=== PATIENT | male | born 1955 | race Caucasian/White ===

== ENCOUNTER → 2017-09-03 14:40 | Outpatient (CLI) | payer MEDICARE, SELFPAY | PROVIDERS: Visit Provider Emergency Medicine | DX: Z79.899 Other long term (current) drug therapy (principal) ==

== ENCOUNTER → 2017-12-02 10:56 | Outpatient (REF) | payer MEDICARE, SELFPAY ==
[2017-12-02 14:06] LABS: Amphetamine/Metha Screen,Urine Negative ng/mL (<1000); Barbiturates Screen,Urine Negative ng/mL (<200); Benzodiazepines Screen,Urine Negative ng/mL (200); Cannabinoid Screen,Urine Negative ng/mL (<50); Cocaine Screen,Urine Negative ng/g (<300); Methadone Screen,Urine Negative ng/mL (<300); Opiate Screen,Urine Negative ng/mL (<300); Phencyclidine Screen,Urine Negative ng/mL (<25)
[2017-12-02 15:33] LABS: Basophils # 0.1 K/mm3 (0-0.2); Basophils % 0.8 % (0.1-2.0); Eosinophils # 0.3 K/mm3 (0.0-0.4); Eosinophils % 2.7 % (0.1-12.0); Hematocrit 49.9 % (42.0-52.0); Hemoglobin 15.2 g/dL (14.1-18.0); Lymphocytes # 4.1 K/mm3 (0.7-4.5); Lymphocytes % 36.4 K/mm3 (10-50); Mean Corpuscular HGB Conc 30.5 g/dL (31.8-35.4); Mean Corpuscular Hemoglobin 28.8 pg (27.0-31.2); Mean Corpuscular Volume 94.6 fl (80-94); Mean Platelet Volume 7.5 fl (7.4-10.4); Monocytes # 0.6 K/mm3 (0.1-1.0); Monocytes % 5.5 % (1.7-9.3); Neutrophils # 6.2 K/mm3 (1.8-7.8); Neutrophils % 54.6 % (37.0-80.0); Platelet Count 344 K/mm3 (142-424); Red Blood Count 5.27 M/mm3 (4.60-6.20); Red Cell Distribution Width 13.5 % (11.5-17.5); White Blood Count 11.3 K/mm3 (4.8-10.8)
[2017-12-02 16:16] LABS: Alanine Aminotransferase 18 U/L (12-78); Albumin Level 3.5 gm/dL (3.4-5.0); Albumin/Globulin Ratio 0.9 (1.1-1.8); Alkaline Phosphatase 116 U/L (46-116); Anion Gap 11.9 mEq/L (5-15); Aspartate Amino Transferase 10 U/L (15-37); Bilirubin,Total 0.2 mg/dL (0.2-1.0); Blood Urea Nitrogen 13 mg/dL (7-18); Calcium 9.3 mg/dL (8.5-10.1); Carbon Dioxide 30 mmol/L (21.0-32.0); Chloride 104 mmol/L (98-107); Chol/HDL Ratio 4.5 (1-3.5); Cholesterol 177 mg/dL (140-200); Creatinine,Serum 0.79 mg/dL (0.70-1.30); Estimated Glomerular Filt Rate 100 ml/min (>60); GFR (African American) 121 ML/MIN (>60); Globulin 3.8 gm/dl (1.3-3.2); Glucose 234 mg/dL (74-106); HDL Cholesterol 39 mg/dL (27-67); LDL Cholesterol 99 mg/dL (0-130); Potassium 4.9 mmoL/L (3.5-5.1); Sodium 141 mmol/L (136-145); T4 (Thyroxine) 7.7 ug/dl (4.7-13.3); Thyroid Stimulating Hormone 3.52 uIU/ml (0.358-3.740); Total Protein,Serum 7.3 gm/dL (6.4-8.2); Triglycerides 196 mg/dL (30-200); VLDL Cholesterol 39 mg/dL (0-40)
[2017-12-02 17:43] LABS: Hemoglobin A1C 7.1 % (0.0-7.0)
[2017-12-04 11:16] LABS: Vitamin D 25 Hydroxy 11.6 ng/mL (30.0-100.0)
[2017-12-04 11:17] LABS: Microalbumin, Urine 14.6 ug/mL (Not Estab.)
== END ==
LOC: LAB 10:56
PROVIDERS: Visit Provider Emergency Medicine
DX: Z79.899 Other long term (current) drug therapy (principal); E11.9 Type 2 diabetes mellitus without complications
CPT/HCPCS: 80053; 80061; 80305; 82043; 82652; 83036; 84436; 84443; 85025

== ENCOUNTER → 2018-03-18 14:45 | Outpatient (REF) | payer MEDICARE, SELFPAY ==
[2018-03-18 17:30] LABS: Basophils # 0.1 K/mm3 (0-0.2); Basophils % 0.8 % (0.1-2.0); Eosinophils # 0.2 K/mm3 (0.0-0.4); Eosinophils % 1.6 % (0.1-12.0); Hematocrit 48.1 % (42.0-52.0); Hemoglobin 15.1 g/dL (14.1-18.0); Lymphocytes # 2.9 K/mm3 (0.7-4.5); Lymphocytes % 27.7 K/mm3 (10-50); Mean Corpuscular HGB Conc 31.5 g/dL (31.8-35.4); Mean Corpuscular Hemoglobin 29.9 pg (27.0-31.2); Mean Corpuscular Volume 95.2 fl (80-94); Mean Platelet Volume 8.2 fl (7.4-10.4); Monocytes # 0.7 K/mm3 (0.1-1.0); Monocytes % 6.5 % (1.7-9.3); Neutrophils # 6.6 K/mm3 (1.8-7.8); Neutrophils % 63.4 % (37.0-80.0); Platelet Count 273 K/mm3 (142-424); Red Blood Count 5.06 M/mm3 (4.60-6.20); Red Cell Distribution Width 13.7 % (11.5-17.5); White Blood Count 10.4 K/mm3 (4.8-10.8)
[2018-03-18 17:47] LABS: Alanine Aminotransferase 21 U/L (12-78); Albumin Level 3.3 gm/dL (3.4-5.0); Albumin/Globulin Ratio 0.9 (1.1-1.8); Alkaline Phosphatase 134 U/L (46-116); Anion Gap 13.8 mEq/L (5-15); Aspartate Amino Transferase 13 U/L (15-37); Bilirubin,Total 0.4 mg/dL (0.2-1.0); Blood Urea Nitrogen 10 mg/dL (7-18); Calcium 9.1 mg/dL (8.5-10.1); Carbon Dioxide 28 mmol/L (21.0-32.0); Chloride 104 mmol/L (98-107); Chol/HDL Ratio 3.9 (1-3.5); Cholesterol 147 mg/dL (140-200); Creatinine,Serum 0.79 mg/dL (0.70-1.30); Estimated Glomerular Filt Rate 100 ml/min (>60); Free T4 (Free Thyroxine) 1.06 ng/dl (0.76-1.46); GFR (African American) 121 ML/MIN (>60); Globulin 3.7 gm/dl (1.3-3.2); Glucose 269 mg/dL (74-106); HDL Cholesterol 38 mg/dL (27-67); LDL Cholesterol 72 mg/dL (0-130); Potassium 4.8 mmoL/L (3.5-5.1); Sodium 141 mmol/L (136-145); Thyroid Stimulating Hormone 2.13 uIU/ml (0.358-3.740); Triglycerides 184 mg/dL (30-200); VLDL Cholesterol 37 mg/dL (0-40)
[2018-03-18 18:25] LABS: Hemoglobin A1C 10.3 % (0.0-7.0)
[2018-03-20 10:24] LABS: Creatinine, Urine 101.5 mg/dL (Not Estab.); Microalbumin, Urine 53.1 ug/mL (Not Estab.)
== END ==
LOC: LAB 14:45
PROVIDERS: Visit Provider Emergency Medicine
DX: E10.9 Type 1 diabetes mellitus without complications (principal)
CPT/HCPCS: 80053; 80061; 82043; 82570; 83036; 84439; 84443; 85025

== ENCOUNTER → 2018-03-31 08:43 | Outpatient (CLI) | payer MEDICARE, SELFPAY | PROVIDERS: PCP Emergency Medicine; Visit Provider Emergency Medicine | DX: E10.9 Type 1 diabetes mellitus without complications (principal); Z71.3 Dietary counseling and surveillance | CPT/HCPCS: 97802 ==

== ENCOUNTER → 2019-05-19 16:24 | Outpatient (CLI) | payer MEDICARE, SELFPAY ==
[2019-05-19 16:47] LABS: Basophils # 0.1 K/mm3 (0-0.2); Basophils % 0.6 % (0.1-2.0); Eosinophils # 0.5 K/mm3 (0.0-0.4); Eosinophils % 3.8 % (0.1-12.0); Hematocrit 46.7 % (42.0-52.0); Hemoglobin 14.6 g/dL (14.1-18.0); Lymphocytes # 3.3 K/mm3 (0.7-4.5); Lymphocytes % 26.5 % (10-50); Mean Corpuscular HGB Conc 31.2 g/dL (31.8-35.4); Mean Corpuscular Hemoglobin 29.8 pg (27.0-31.2); Mean Corpuscular Volume 95.5 fl (80-94); Mean Platelet Volume 8.5 fl (7.4-10.4); Monocytes # 0.7 K/mm3 (0.1-1.0); Monocytes % 5.9 % (1.7-9.3); Neutrophils # 7.8 K/mm3 (1.8-7.8); Neutrophils % 63.2 % (37.0-80.0); Platelet Count 339 K/mm3 (142-424); Red Blood Count 4.89 M/mm3 (4.60-6.20); Red Cell Distribution Width 13.9 % (11.5-17.5); White Blood Count 12.3 K/mm3 (4.8-10.8)
[2019-05-19 17:07] LABS: Alanine Aminotransferase 15 U/L (12-78); Albumin Level 3.4 gm/dL (3.4-5.0); Albumin/Globulin Ratio 0.9 (1.1-1.8); Alkaline Phosphatase 111 U/L (46-116); Anion Gap 13.9 mEq/L (5-15); Aspartate Amino Transferase 12 U/L (15-37); Bilirubin,Total 0.2 mg/dL (0.2-1.0); Blood Urea Nitrogen 16 mg/dL (7-18); Calcium 9.3 mg/dL (8.5-10.1); Carbon Dioxide 27 mmol/L (21.0-32.0); Chloride 102 mmol/L (98-107); Chol/HDL Ratio 4.4 (1-3.5); Cholesterol 167 mg/dL (140-200); Creatinine,Serum 0.88 mg/dL (0.70-1.30); Estimated Glomerular Filt Rate 88 ml/min (>60); Free T4 (Free Thyroxine) 0.95 ng/dl (0.76-1.46); GFR (African American) 106 ML/MIN (>60); Globulin 3.8 gm/dl (1.3-3.2); Glucose 171 mg/dL (74-106); HDL Cholesterol 38 mg/dL (27-67); LDL Cholesterol 76 mg/dL (0-130); Potassium 4.9 mmoL/L (3.5-5.1); Sodium 138 mmol/L (136-145); Thyroid Stimulating Hormone 2.14 uIU/ml (0.358-3.740); Total Protein,Serum 7.2 gm/dL (6.4-8.2); Triglycerides 267 mg/dL (30-200); VLDL Cholesterol 53 mg/dL (0-40)
[2019-05-21 09:17] LABS: PSA, Free 0.24 ng/mL; Vitamin D 25 Hydroxy 8.4 ng/mL (30.0-100.0)
[2019-05-21 17:20] LABS: Microalbumin, Urine 17.6 ug/mL (Not Estab.)
== END ==
PROVIDERS: Visit Provider Nurse Practitioner Family
DX: E11.69 Type 2 diabetes mellitus with other specified complication; E78.5 Hyperlipidemia, unspecified; K59.00 Constipation, unspecified; Z72.0 Tobacco use; E03.9 Hypothyroidism, unspecified; E55.9 Vitamin D deficiency, unspecified; Z79.84 Long term (current) use of oral hypoglycemic drugs
CPT/HCPCS: 80053; 80061; 82043; 82652; 84153; 84154; 84439; 84443; 85025

== ENCOUNTER → 2019-08-18 13:47 | Outpatient (CLI) | payer MEDICARE, SELFPAY ==
[2019-08-18 14:49] LABS: Chloride 99 mmol/L (98-107); Potassium 4.9 mmoL/L (3.5-5.1); Sodium 135 mmol/L (136-145)
[2019-08-18 14:52] LABS: Alanine Aminotransferase 18 U/L (12-78); Albumin Level 3.7 g/dl (3.5-5.0); Albumin/Globulin Ratio 1.4 (1.1-1.8); Alkaline Phosphatase 108 U/L (38-126); Anion Gap 12.9 mEq/L (5-15); Aspartate Amino Transferase 23 U/L (17-59); Bilirubin,Total 0.3 mg/dl (0.2-1.3); Blood Urea Nitrogen 17 mg/dl (9-20); Calcium 9.6 mg/dl (8.4-10.2); Carbon Dioxide 28 mmol/L (22.0-30.0); Chol/HDL Ratio 4.3 (1-3.5); Cholesterol 134 mg/dl (140-200); Estimated Glomerular Filt Rate 136 ml/min (>60); GFR (African American) 165 ML/MIN (>60); Globulin 2.7 g/dL (1.3-3.2); Glucose 252 mg/dl (74-100); HDL Cholesterol 31 mg/dl (40-60); Total Protein,Serum 6.4 g/dl (6.3-8.2); Triglycerides 277 mg/dl (30-150); VLDL Cholesterol 55 mg/dL (0-40)
[2019-08-18 15:03] LABS: Direct LDL Cholesterol 83.25 mg/dL (100-129)
[2019-08-18 15:20] LABS: Free T4 (Free Thyroxine) 1.25 ng/dl (0.78-2.19)
[2019-08-18 19:46] LABS: Hemoglobin A1C 8.2 % (4.0-6.0)
[2019-08-18 21:09] LABS: Basophils # 0.1 K/mm3 (0-0.2); Basophils % 0.7 % (0.1-2.0); Eosinophils # 0.2 K/mm3 (0.0-0.4); Hematocrit 44.7 % (42.0-52.0); Lymphocytes # 3.3 K/mm3 (0.7-4.5); Lymphocytes % 30.9 % (10-50); Mean Corpuscular HGB Conc 31.3 g/dL (31.8-35.4); Mean Corpuscular Hemoglobin 29.7 pg (27.0-31.2); Mean Corpuscular Volume 94.8 fl (80-94); Mean Platelet Volume 8.8 fl (7.4-10.4); Monocytes # 0.6 K/mm3 (0.1-1.0); Monocytes % 5.8 % (1.7-9.3); Neutrophils # 6.5 K/mm3 (1.8-7.8); Neutrophils % 60.6 % (37.0-80.0); Platelet Count 319 K/mm3 (142-424); Red Blood Count 4.72 M/mm3 (4.60-6.20); Red Cell Distribution Width 13.6 % (11.5-17.5); White Blood Count 10.7 K/mm3 (4.8-10.8)
[2019-08-20 10:34] LABS: Vitamin D 25 Hydroxy 31.3 ng/mL (30.0-100.0)
[2019-08-20 11:09] LABS: Creatinine, Urine 127.8 mg/dL (Not Estab.); Microalbumin, Urine 15.4 ug/mL (Not Estab.)
== END ==
PROVIDERS: Visit Provider Emergency Medicine
DX: E11.8 Type 2 diabetes mellitus with unspecified complications; E78.5 Hyperlipidemia, unspecified; Z79.84 Long term (current) use of oral hypoglycemic drugs; Z79.899 Other long term (current) drug therapy
CPT/HCPCS: 80053; 80061; 82043; 82570; 82652; 83036; 84439; 84443; 85025

== ENCOUNTER → 2019-09-10 12:50 | Outpatient (CLI) | payer MEDICARE, SELFPAY ==
--- NOTE | 2019-09-10 12:51 | US_ITS ---
APPROVED REPORT Exam Type: Lower Extremity Segmental Pressures Telephone Order Clerk: Jena Srivastava RVT Indications Current Smoker Skin color changes Pressures/Indices Right Indices Left Indices Brachial 168.00 mmHg Brachial 168.00 mmHg Low Thigh 138.00 mmHg 0.82 Low Thigh 108.00 mmHg 0.64 Calf 184.00 mmHg 1.10 Calf 125.00 mmHg 0.74 Ankle(PT) 196.00 mmHg 1.17 Ankle(PT) 122.00 mmHg 0.73 Ankle(DP) 170.00 mmHg 1.01 Ankle(DP) 113.00 mmHg 0.67 Digit 142.00 mmHg 0.85 Digit 109.00 mmHg 0.65 Findings RT MALOU:1.17 LT MALOU:0.73 RT TBI:0.85 LT TBI:0.65 DECREASED WAVEFORMS ON THE LEFT AT ALL LEVELS, RIGHT IS NORMAL. PULSES NORMAL BILATERALLY. Conclusion Moderate aterial disease on the left Electronically signed by : Kevon Espinoza MD 09/10/2019 16:04:33
== END ==
PROVIDERS: PCP Emergency Medicine; Visit Provider Podiatrist
DX: R09.89 Other specified symptoms and signs involving the circulatory and respiratory systems (principal)
CPT/HCPCS: 93923

== ENCOUNTER → 2019-11-10 15:00 | Outpatient (CLI) | payer MEDICARE, SELFPAY ==
[2019-11-10 15:44] LABS: Basophils # 0.2 K/mm3 (0-0.2); Basophils % 1.3 % (0.1-2.0); Eosinophils # 0.3 K/mm3 (0.0-0.4); Eosinophils % 2.3 % (0.1-12.0); Hematocrit 46.6 % (42.0-52.0); Hemoglobin 14.7 g/dL (14.1-18.0); Lymphocytes # 3.9 K/mm3 (0.7-4.5); Lymphocytes % 29.3 % (10-50); Mean Corpuscular HGB Conc 31.5 g/dL (31.8-35.4); Mean Corpuscular Hemoglobin 29.6 pg (27.0-31.2); Mean Corpuscular Volume 93.9 fl (80-94); Mean Platelet Volume 8.3 fl (7.4-10.4); Monocytes # 0.8 K/mm3 (0.1-1.0); Monocytes % 5.8 % (1.7-9.3); Neutrophils # 8.1 K/mm3 (1.8-7.8); Neutrophils % 61.3 % (37.0-80.0); Platelet Count 348 K/mm3 (142-424); Red Blood Count 4.97 M/mm3 (4.60-6.20); Red Cell Distribution Width 14.2 % (11.5-17.5); White Blood Count 13.1 K/mm3 (4.8-10.8)
[2019-11-10 15:57] LABS: Alanine Aminotransferase 20 U/L (12-78); Albumin Level 4.2 g/dl (3.5-5.0); Albumin/Globulin Ratio 1.4 (1.1-1.8); Alkaline Phosphatase 118 U/L (38-126); Anion Gap 12.7 mEq/L (5-15); Aspartate Amino Transferase 23 U/L (17-59); Bilirubin,Total 0.3 mg/dl (0.2-1.3); Blood Urea Nitrogen 21 mg/dl (9-20); Calcium 9.8 mg/dl (8.4-10.2); Carbon Dioxide 25 mmol/L (22.0-30.0); Chloride 101 mmol/L (98-107); Chol/HDL Ratio 3.4 (1-3.5); Cholesterol 147 mg/dl (140-200); Estimated Glomerular Filt Rate 136 ml/min (>60); GFR (African American) 165 ML/MIN (>60); Globulin 3.1 g/dL (1.3-3.2); Glucose 160 mg/dl (74-100); HDL Cholesterol 43 mg/dl (40-60); Potassium 4.7 mmoL/L (3.5-5.1); Sodium 134 mmol/L (136-145); Total Protein,Serum 7.3 g/dl (6.3-8.2)
[2019-11-10 16:00] LABS: Triglycerides 497 mg/dl (30-150)
[2019-11-10 16:08] LABS: Direct LDL Cholesterol 70.22 mg/dL (100-129)
[2019-11-10 16:28] LABS: Thyroid Stimulating Hormone 3.84 uIU/mL (0.465-4.68)
[2019-11-10 16:29] LABS: Hemoglobin A1C 7.5 % (4.0-6.0)
[2019-11-12 07:37] LABS: Vitamin D 25 Hydroxy 19.8 ng/mL (30.0-100.0)
== END ==
PROVIDERS: Visit Provider Emergency Medicine
DX: E11.8 Type 2 diabetes mellitus with unspecified complications (principal); R68.89 Other general symptoms and signs; R09.89 Other specified symptoms and signs involving the circulatory and respiratory systems; E55.9 Vitamin D deficiency, unspecified; Z79.84 Long term (current) use of oral hypoglycemic drugs
CPT/HCPCS: 80053; 80061; 82652; 83036; 84436; 84443; 85025

== ENCOUNTER 2020-06-28 17:37 | Emergency (ER) | payer MEDICARE, SELFPAY ==
[2020-06-28 17:50] VITALS: BP 145/91; PULSE 98; RESP 20; TEMP 37.3; O2SAT 98; BMI 35.2
[2020-06-28 18:09] LABS: UTC Influenza A Antigen Negative (Negative)
--- NOTE | 2020-06-28 18:09 | HMH.EDUTC ---
[facility] [place] Disposition Clinical Impression: Viral syndrome Disposition: Home, Self-Care Condition on Discharge: Good Instructions: DI for Fever (Symptom) -- Adult, DI for COVID-19 (Suspected or Confirmed ), Coronavirus Disease 2019, Preventing the Spread of Coronavirus Discharge Instructions Additional Instructions: *Monitor Temp, Over the counter Motrin or Tylenol as directed/as needed Tylenol every 4 hours and Motrin every 6 hours (as long as your family doctor has told you that you can take it) for fever or pain. and straight to ER if unable to lower temp less than 101.0 after medication given *Warm salt water gargles may help to soothe the throat *Throat Lozenges *Warm fluids like tea with honey may help to soothe the throat *Sleep elevated *Humidifier/Vaporizer Follow up IMMEDIATELY for new or worsening symptoms or no Noticeable improvement over the next 48-72 hours. 911 for difficulty breathing or swallowing You were tested for today for COVID19 your test result should be back in the next 24-48 hours, you may call to the [facility] to see if your test results are back in the next 48 hours [phone] [facility] hours are 9am-9pm You was given a handout with instructions for Self Quarantine and Self isolation for while you wait on test results and what to do if they are positive If you are positive the Health Dept will be contacting you also Referrals: Sanchez Osborne MD [Primary Care Provider] - As needed Forms: Work/School Release Time of Disposition: 18:09 Medical Decision Making - Paresh Inquiry Pt receiving controlled substance: No Paresh was queried for this patient: No Vital Signs: 06/28/20 17:50 Temperature 99.1 F Temperature Source Oral Pulse Rate [Right Brachial] 98 H Respiratory Rate 20 Blood Pressure [Right Arm] 145/91 H Blood Pressure Mean [Right Arm] 109 Blood Pressure Source [Right Arm] Automatic Cuff Blood Pressure Position [Right Arm] Sitting 02 Sat by Pulse Oximetry 98 Oxygen Delivery Method Room Air Orders (Tests/Meds): ORDERS Category Date Time Status Covid-19 Nasal PCR Sendout P&C Stat Lab 06/28/20 17:55 Ordered [facility] [place] HPI - General Stated complaint: Covid test Time Seen by Provider: 06/28/20 18:09 Mode of Arrival: Ambulatory Source of Information: Patient Limitations: No Limitations Description of Symptoms (Recalled from Triage Doc. by RN): PATIENT C/O FEVER AND BODY ACHES X 2 DAYS HEENT Symptoms (Recalled from RN notes): No Resp Symptoms (Recalled from RN notes): No Skin Symptoms (Recalled from RN notes): No MS Symptoms (Recalled from RN notes): No Functional Status (Recalled from RN notes): WNL - History of Present Illness Provider Complaint: Patient states that a couple of days ago he had some nasal congestion then that went away and now he is having body aches, chills and fever on and off States that he was worried that he may have flu or COVID and wanted to get tested - Related Data Home Medications Medication Instructions Recorded Confirmed hydrocodone 7.5 mg-acetaminophen 1 tab PO Q6H 07/02/17 05/09/20 325 mg tablet Previous Rx's Medication Instructions Recorded blood sugar diagnostic See Dose Instructions .ROUTE 05/29/18 .MEDSUPPLY #100 each fluticasone furoate 100 1 inh INHALATION DAILY #28 each 09/09/18 mcg-vilanterol 25 mcg/dose inhalation powder ergocalciferol (vitamin D2) 1,250 50,000 unit PO QWEEK #10 cap 05/22/19 mcg (50,000 unit) capsule blood-glucose meter See Rx Instructions .ROUTE 08/20/19 .MEDSUPPLY #1 each blood-glucose meter See Rx Instructions .ROUTE 08/23/19 .MEDSUPPLY #1 each aspirin 81 mg tablet,delayed 81 mg PO DAILY #90 tab 11/10/19 release blood sugar diagnostic See Rx Instructions .ROUTE 11/10/19 .MEDSUPPLY #100 each glipizide 10 mg tablet, extended 10 mg PO BID #60 tab 11/10/19 release 24 hr lancets See Rx Instructions .ROUTE 11/10/19 .MEDSUPPLY #102 each cholecalciferol (vitamin D3) 25 25 mcg PO DAILY #9
[2020-06-28 18:10] LABS: UTC Influenza B Antigen Negative (Negative)
[2020-06-28 18:15] VITALS: BP 145/91; PULSE 98; RESP 20; TEMP 37.3; O2SAT 98
[2020-06-30 11:29] LABS: Covid-19 Nasal PCR Sendout P&C NEGATIVE
== END 2020-06-28 18:16 | disposition home or self-care (01) ==
PROVIDERS: Emergency Provider Nurse Practitioner; PCP Emergency Medicine
DX: Z20.828 Contact with and (suspected) exposure to other viral communicable diseases (principal); B34.9 Viral infection, unspecified; I10 Essential (primary) hypertension; I25.10 Atherosclerotic heart disease of native coronary artery without angina pectoris; E78.5 Hyperlipidemia, unspecified; E11.9 Type 2 diabetes mellitus without complications; F17.210 Nicotine dependence, cigarettes, uncomplicated; Z79.899 Other long term (current) drug therapy
CPT/HCPCS: G0463; 87804; 99201; U0004

== ENCOUNTER → 2020-08-08 13:38 | Outpatient (CLI) | payer MEDICARE, SELFPAY ==
[2020-08-08 14:20] LABS: Alanine Aminotransferase 18 U/L (12-78); Albumin/Globulin Ratio 1.3 (1.1-1.8); Alkaline Phosphatase 113 U/L (38-126); Anion Gap 9.6 mEq/L (5-15); Aspartate Amino Transferase 20 U/L (17-59); Bilirubin,Total 0.4 mg/dl (0.2-1.3); Blood Urea Nitrogen 10 mg/dl (9-20); Calcium 9.9 mg/dl (8.4-10.2); Carbon Dioxide 30 mmol/L (22.0-30.0); Chloride 103 mmol/L (98-107); Chol/HDL Ratio 3.5 (1-3.5); Cholesterol 149 mg/dl (140-200); Estimated Glomerular Filt Rate 167 ml/min (>60); GFR (African American) 203 ML/MIN (>60); Globulin 3.1 g/dL (1.3-3.2); Glucose 195 mg/dl (74-100); HDL Cholesterol 43 mg/dl (40-60); Potassium 4.6 mmoL/L (3.5-5.1); Sodium 138 mmol/L (136-145); Total Protein,Serum 7.1 g/dl (6.3-8.2); Triglycerides 213 mg/dl (30-150); VLDL Cholesterol 43 mg/dL (0-40)
[2020-08-08 14:29] LABS: Basophils # 0.1 K/mm3 (0-0.2); Basophils % 0.7 % (0.1-2.0); Eosinophils # 0.3 K/mm3 (0.0-0.4); Eosinophils % 2.2 % (0.1-12.0); Hematocrit 44.9 % (42.0-52.0); Hemoglobin 14.2 g/dL (14.1-18.0); Lymphocytes # 3.5 K/mm3 (0.7-4.5); Lymphocytes % 31.6 % (10-50); Mean Corpuscular HGB Conc 31.6 g/dL (31.8-35.4); Mean Corpuscular Hemoglobin 29.7 pg (27.0-31.2); Mean Platelet Volume 8.1 fl (7.4-10.4); Monocytes # 0.6 K/mm3 (0.1-1.0); Monocytes % 5.8 % (1.7-9.3); Neutrophils # 6.6 K/mm3 (1.8-7.8); Neutrophils % 59.7 % (37.0-80.0); Platelet Count 327 K/mm3 (142-424); Red Blood Count 4.78 M/mm3 (4.60-6.20); Red Cell Distribution Width 14.3 % (11.5-17.5)
[2020-08-08 14:36] LABS: Free T4 (Free Thyroxine) 1.24 ng/dl (0.78-2.19)
[2020-08-08 14:52] LABS: Prostate Specific Ag Screen 0.9 ng/ml (0.0-4.0); Thyroid Stimulating Hormone 5.19 uIU/mL (0.465-4.68)
[2020-08-08 16:02] LABS: Hemoglobin A1C 8.2 % (4.0-6.0)
== END ==
PROVIDERS: Visit Provider Emergency Medicine
DX: E10.9 Type 1 diabetes mellitus without complications (principal); Z12.5 Encounter for screening for malignant neoplasm of prostate; Z79.84 Long term (current) use of oral hypoglycemic drugs
CPT/HCPCS: 80053; 80061; 83036; 84439; 84443; 85025; G0103

== ENCOUNTER → 2020-09-05 14:58 | Outpatient (CLI) | payer MEDICARE, SELFPAY ==
[2020-09-05 15:16] LABS: Microalbumin/Creatinine Ratio 31.1
[2020-09-05 15:22] LABS: Creatinine,Urine Random 105 mg/dL (Not Estab.)
== END ==
PROVIDERS: Visit Provider Emergency Medicine
DX: E10.9 Type 1 diabetes mellitus without complications (principal); Z79.84 Long term (current) use of oral hypoglycemic drugs
CPT/HCPCS: 82043; 82570

== ENCOUNTER → 2020-12-11 15:14 | Outpatient (POV) | payer MEDICARE, SELFPAY | PROVIDERS: Visit Provider Internal Medicine Nephrology | DX: Z00.00 Encounter for general adult medical examination without abnormal findings (principal) ==

== ENCOUNTER → 2021-03-29 07:53 | Outpatient (CLI) | payer MEDICARE, SELFPAY ==
--- NOTE | 2021-03-29 07:53 | US_ITS ---
PROCEDURE: US GALLBLADDER CLINICAL INDICATION: abdominal pain COMPARISON: No exams were available for comparison FINDINGS: Pancreas: There is poor visualization of the tail the pancreas. Liver: Diffuse increased echogenicity of the liver with poor through transmission of sound consistent with hepatic steatosis. No focal liver lesion demonstrated. Portal vein is upper limits of normal at 14 mm. There is decreased through transmission of sound of the liver resulting in decrease resolution. There is appropriate direction of blood flow within portal vein. Right kidney: Unremarkable appearing. No hydronephrosis. Gallbladder: Gallstones are present. No pericholecystic fluid biliary dilatation or gallbladder wall thickening. IMPRESSION: Cholelithiasis Fatty liver Dictated by: Kevon Espinoza MD 03/29/2021 14:40 Kevon Espinoza MD in [place] 03/29/2021 14:40
== END ==
PROVIDERS: PCP Emergency Medicine; Visit Provider Emergency Medicine
DX: R10.9 Unspecified abdominal pain (principal)
CPT/HCPCS: 76705

== ENCOUNTER → 2021-04-02 10:18 | Outpatient (CLI) | payer MEDICARE, SELFPAY | PROVIDERS: PCP Emergency Medicine; Visit Provider Nurse Practitioner | DX: Z20.822 Contact with and (suspected) exposure to COVID-19 (principal) | CPT/HCPCS: C9803; U0003; U0005 ==

== ENCOUNTER 2021-04-04 10:22 | Day surgery (SDC) | payer MEDICARE, SELFPAY ==
[2021-04-03 08:17] VITALS: BMI 35.2
[2021-04-04 10:35] VITALS: BP 151/82; PULSE 76; RESP 18; TEMP 36.1; O2SAT 96
--- NOTE | 2021-04-04 10:48 | HMH.ANESCL ---
[facility] Anesthesia Checklist - Patient Identification Patient Identification: Arm Band - Structural Data Admitted From: Home Planned Operative Procedure/s: egd Consent for Planned Operative Procedure(s) Verified: Yes Verified Documents: Surgical Consent, History and Physical - NPO Status Verified Time NPO: 00:00 - Additional verifications Anesthesia Reactions: No - Airway Assessment C-Spine Mobility Assessed: Yes (mp2) TMJ Mobility Assessed: Yes Dentition: Good Dentition - Neurological Assessment Level of Consciousness: Awake, Alert - Anesthesia Plan Anesthesia Risk discussed: Yes Anesthesia Plan: Verified ASA Class: III Anesthesia Type: MAC [facility] History I have reviewed the patient's past medical history: Yes Medical History: Reports:: Chronic Obstructive Pulmonary Disease (COPD), Coronary Artery Disease, Diabetes Mellitus Type 2, Hyperlipidemia, Hypertension, MRSA (leg), Myocardial Infarction Denies:: Cancer, Diabetes Mellitus Type 1, Internal Pacemaker, Seizures *Have you ever received a pneumonia vaccine?: Yes *Have you received a flu vaccine this season?: No Other Medical History: Reports: Other Anesthesia experience/problems:: nac Laterality Cases: Right: Other Other Surgeries: Yes: CABG, Cardiac Catheterization, Other. No: Pacemaker Amputation: No Fractures: No - *Social History Last grade of school completed: High school graduate Smoking Status: Current every day smoker Tobacco Type: cigarettes # Packs/Day (cigarettes): 1 Alcohol Intake: never Substance Use Type: denies use *Occupational Status:: disabled Housing: house Household Members: family *Travel in the last 8 weeks: None Family Hx:: Cancer, Diabetes
[2021-04-04 10:58] VITALS: O2SAT 97
--- NOTE | 2021-04-04 11:06 | P.PCN_ITS ---
- Procedure: Date: 04/04/21 Patient Date of :: 1955 Procedure Performed:: Esophagogastroduodenoscopy with biopsy Indications:: Patient is a 65-year-old male from [place] with history of coronary artery disease, previous myocardial infarction, diabetes, on Plavix. He was referred by Dr. Osborne for upper endoscopy due to symptoms of bloating and feeling the need to belch. Apparently the same day he had a gallbladder ultrasound ordered. Gallbladder ultrasound reveals gallstones and fatty liver. Interestingly the patient did not stop his Plavix prior to the scheduled procedure. Performing Provider:: Fili Cheng MD Referring Provider:: Darron Osborne MD Sedation:: MAC sedation Procedure:: Patient was taken to the endoscopy procedure room. He was positioned in lateral decubitus position. Adequate intravenous sedation was achieved with anesthesia titration of propofol. Olympus endoscope was inserted via the oropharynx. Esophagus was cannulated. Esophagus appeared unremarkable. Gastroesophageal junction was encountered at approximately 42 cm from the incisors. Stomach was cannulated and insufflated. Retroflexion was performed. There was some diffuse moderate nonerosive gastropathy. Limited biopsy was obtained due to the patient being on Plavix. Pylorus was traversed. Duodenal bulb and duodenal sweep appeared unremarkable. Stomach was desufflated and the endoscope was withdrawn. Findings:: Moderate nonerosive gastropathy Recommendations:: Follow-up on histopathology. Symptoms may be related to gallstones. If cholecystectomy is entertained patient will need cardiac clearance. Complications:: None immediately apparent Estimated blood obtained (mL): 1
[2021-04-04 11:10] VITALS: BP 105/65; PULSE 68; RESP 20; TEMP 36.1; O2SAT 91
[2021-04-04 11:42] VITALS: BP 120/59; PULSE 68; RESP 20; TEMP 36.1; O2SAT 97
[2021-04-05 10:35] LABS: POC Glucose,Bedside 160 (70-110)
== END 2021-04-04 11:42 | disposition home or self-care (01) ==
LOC: OUTP 10:23
PROVIDERS: PCP Emergency Medicine; Visit Provider Surgery
PROC: 0DJ08ZZ Inspection of Upper Intestinal Tract, Via Natural or Artificial Opening Endoscopic (ICD-10-PCS; CPT 43235; principal; 2021-04-04 11:30)
DX: K31.9 Disease of stomach and duodenum, unspecified (principal); I25.2 Old myocardial infarction; E11.9 Type 2 diabetes mellitus without complications; Z79.02 Long term (current) use of antithrombotics/antiplatelets; K80.80 Other cholelithiasis without obstruction; K76.0 Fatty (change of) liver, not elsewhere classified; J44.9 Chronic obstructive pulmonary disease, unspecified; I25.10 Atherosclerotic heart disease of native coronary artery without angina pectoris; E78.5 Hyperlipidemia, unspecified; I10 Essential (primary) hypertension; Z86.14 Personal history of Methicillin resistant Staphylococcus aureus infection; Z79.899 Other long term (current) drug therapy
CPT/HCPCS: 43239; 82962; 88305; 88342

== ENCOUNTER → 2021-05-28 14:04 | Outpatient (CLI) | payer MEDICARE, SELFPAY ==
[2021-05-28 14:18] LABS: Basophils # 0.1 K/mm3 (0-0.2); Basophils % 0.8 % (0.1-2.0); Eosinophils # 0.2 K/mm3 (0.0-0.4); Eosinophils % 1.7 % (0.1-12.0); Hematocrit 44.1 % (42.0-52.0); Hemoglobin 14.2 g/dL (14.1-18.0); Lymphocytes % 32.2 % (10-50); Mean Corpuscular HGB Conc 32.3 g/dL (31.8-35.4); Mean Corpuscular Hemoglobin 30.5 pg (27.0-31.2); Mean Corpuscular Volume 94.4 fl (80-94); Mean Platelet Volume 8.5 fl (7.4-10.4); Monocytes # 0.6 K/mm3 (0.1-1.0); Monocytes % 6.8 % (1.7-9.3); Neutrophils # 5.4 K/mm3 (1.8-7.8); Neutrophils % 58.4 % (37.0-80.0); Platelet Count 374 K/mm3 (142-424); Red Blood Count 4.66 M/mm3 (4.60-6.20); Red Cell Distribution Width 13.8 % (11.5-17.5); White Blood Count 9.2 K/mm3 (4.8-10.8)
[2021-05-28 15:33] LABS: Chol/HDL Ratio 3.9 (1-3.5); Cholesterol 169 mg/dl (140-200); HDL Cholesterol 43 mg/dl (40-60); Triglycerides 313 mg/dl (30-150); VLDL Cholesterol 63 mg/dL (0-40)
[2021-05-28 15:43] LABS: Direct LDL Cholesterol 93.74 mg/dL (100-129)
[2021-05-28 16:09] LABS: Hemoglobin A1C 8.6 % (4.0-6.0)
== END ==
PROVIDERS: Visit Provider Emergency Medicine
DX: E10.9 Type 1 diabetes mellitus without complications (principal); Z79.84 Long term (current) use of oral hypoglycemic drugs
CPT/HCPCS: 80061; 83036; 85025

== ENCOUNTER → 2021-07-07 10:11 | Outpatient (CLI) | payer MEDICARE, SELFPAY | PROVIDERS: PCP Emergency Medicine; Visit Provider Nurse Practitioner | DX: U07.1 COVID-19 (principal) | CPT/HCPCS: C9803; U0003; U0005 ==

== ENCOUNTER → 2021-07-16 08:43 | Outpatient (CLI) | payer MEDICARE, SELFPAY | PROVIDERS: PCP Emergency Medicine; Visit Provider Nurse Practitioner | DX: U07.1 COVID-19 (principal) | CPT/HCPCS: C9803; U0003; U0005 ==

== ENCOUNTER 2021-07-16 08:48 | Emergency (ER) | payer MEDICARE, SELFPAY ==
[2021-07-16 08:57] VITALS: BP 123/62; PULSE 82; RESP 19; TEMP 36.6; O2SAT 98; BMI 34.4
[2021-07-16 08:59] VITALS: BMI 34.4
--- NOTE | 2021-07-16 09:00 | HMH.EDGENADL ---
ED Disposition Clinical Impression: Lack of appetite Disposition: Home, Self-Care Condition on Discharge: Good Instructions: Eating Healthfully: Tips to Make It Easier, DI for Nausea -- Adult Additional Instructions: Please follow up with your primary care physician in 2-3 days for further management. Please use the zofran as prescribed to help with appetite. Your lack of taste may get better with time, but please try to eat regardless. Eat 3 balanced meals a day and drink plenty of water. Please return for any concerning symptoms such as inability to eat and drink, difficulty breathing, chest pain or any other concerning symptoms. Prescriptions: ondansetron HCL [Zofran 4mg Tab*] 4 mg PO TIDP PRN #30 tab PRN Reason: Nausea Transmission Status: Sent to [facility] Referrals: Sanchez Osborne MD [Primary Care Provider] - Time of Disposition: 09:55 - Critical Care Critical Care Time: No Attestation: On 07/16/21, the high probability of a clinically significant, sudden or life threatening deterioration of the following system(s) required my full and direct attention, intervention and personal management. The time I documented below is in addition to time spent performing reported procedures but includes the following listed in this critical care notation. Medical Decision Making - Medical Records Medical records reviewed: Yes: I reviewed the patient's medical records. - Paresh Inquiry Pt receiving controlled substance: No Vital Signs: 07/16/21 08:57 Temperature 97.8 F Temperature Source Oral Pulse Rate [Right Radial] 82 Respiratory Rate 19 Blood Pressure [Right Arm] 123/62 Blood Pressure Mean [Right Arm] 82 Blood Pressure Source [Right Arm] Automatic Cuff Blood Pressure Position [Right Arm] Supine 02 Sat by Pulse Oximetry 98 Oxygen Delivery Method Room Air - Lab Data Lab results reviewed: Yes: I reviewed the patient's lab results. Lab Results 07/16/21 08:59: WBC 8.6, RBC 5.11, Hgb 15.6, Hct 48.2, MCV 94.3 H, MCH 30.5, MCHC 32.4, RDW 14.2, Plt Count 336, MPV 8.3, Neut % (Auto) 73.7, Lymph % (Auto) 20.8, [place] % (Auto) 4.6, Eos % (Auto) 0.2, Baso % (Auto) 0.6, Neut # (Auto) 6.4, Lymph # (Auto) 1.8, [place] # (Auto) 0.4, Eos # (Auto) 0.0, Baso # (Auto) 0.1 07/16/21 08:59: Sodium 134 L, Potassium 4.6, Chloride 101, Carbon Dioxide 23, Anion Gap 14.6, BUN 26 H, Creatinine 0.70, Estimated Creat Clear 115, Estimated GFR 114, Est GFR ( Amer) 137, Glucose 236 H, Calcium 9.0, Magnesium 1.7, Total Bilirubin 0.9, AST 43, ALT 29, Alkaline Phosphatase 90, Total Protein 8.0, Albumin 4.2, Globulin 3.8 H, Albumin/Globulin Ratio 1.1 Result diagrams: 07/16/21 08:59 07/16/21 08:59 Orders (Tests/Meds): ED MEDICATIONS Generic Name Dose Route Start Last Admin Trade Name Freq PRN Reason Stop Dose Admin Lactated Ringer's 1,000 mls @ 999 mls/hr 07/16/21 09:00 07/16/21 09:14 Lactated Ringer's 1000 Ml Bag IV 07/16/21 10:00 999 mls/hr .Q1H1M DAYA Administration Discontinued Medications Generic Name Dose Route Start Last Admin Trade Name Freq PRN Reason Stop Dose Admin Ondansetron HCl 4 mg 07/16/21 08:59 07/16/21 09:14 Ondansetron 4mg/2ml Vial IV 07/16/21 09:00 4 mg ONCE ONE Administration Medical Decision Narrative: Mr. Gomes is a 65 yo male w/ multiple comorbidities including T2DM non insulin dependent, COPD and recent diagnosis of approximately COVID 10d prior who presents to the ED for nausea, lack of taste and lack of appetite for one week. Patient is afebrile and hemodynamically stable on arrival. Patient has no clinical signs of dehydration. Cap refill<2, good skin turgor and moist mucous membranes. Physical exam benign, no abdominal pain on exam, clear equal breath sounds bilaterally. Differentials to consider but not limited to include: residual effects of covid, other viral mediated illness, failure to thrive, electrolyte abnormalities. Patient is given 1L IV LR and zofran for
[2021-07-16 09:36] LABS: Basophils # 0.1 K/mm3 (0-0.2); Basophils % 0.6 % (0.1-2.0); Eosinophils % 0.2 % (0.1-12.0); Hematocrit 48.2 % (42.0-52.0); Hemoglobin 15.6 g/dL (14.1-18.0); Lymphocytes # 1.8 K/mm3 (0.7-4.5); Lymphocytes % 20.8 % (10-50); Mean Corpuscular HGB Conc 32.4 g/dL (31.8-35.4); Mean Corpuscular Hemoglobin 30.5 pg (27.0-31.2); Mean Corpuscular Volume 94.3 fl (80-94); Mean Platelet Volume 8.3 fl (7.4-10.4); Monocytes # 0.4 K/mm3 (0.1-1.0); Monocytes % 4.6 % (1.7-9.3); Neutrophils # 6.4 K/mm3 (1.8-7.8); Neutrophils % 73.7 % (37.0-80.0); Platelet Count 336 K/mm3 (142-424); Red Blood Count 5.11 M/mm3 (4.60-6.20); Red Cell Distribution Width 14.2 % (11.5-17.5); White Blood Count 8.6 K/mm3 (4.8-10.8)
[2021-07-16 09:41] LABS: Chloride 101 mmol/L (98-107); Potassium 4.6 mmoL/L (3.5-5.1); Sodium 134 mmol/L (136-145)
[2021-07-16 09:43] LABS: Blood Urea Nitrogen 26 mg/dl (9-20); Creatinine Clearance Estimated 115 mL/min (50-200); Estimated Glomerular Filt Rate 114 ml/min (>60); GFR (African American) 137 ML/MIN (>60)
[2021-07-16 09:44] LABS: Alanine Aminotransferase 29 U/L (12-78); Albumin Level 4.2 g/dl (3.5-5.0); Albumin/Globulin Ratio 1.1 (1.1-1.8); Alkaline Phosphatase 90 U/L (38-126); Anion Gap 14.6 mEq/L (5-15); Aspartate Amino Transferase 43 U/L (17-59); Bilirubin,Total 0.9 mg/dl (0.2-1.3); Carbon Dioxide 23 mmol/L (22.0-30.0); Globulin 3.8 g/dL (1.3-3.2); Glucose 236 mg/dl (74-100); Magnesium 1.7 mg/dl (1.6-2.3)
[2021-07-16 10:31] VITALS: BP 155/93; PULSE 79; RESP 19; TEMP 36.8; O2SAT 95
== END 2021-07-16 10:31 | disposition home or self-care (01) ==
PROVIDERS: Emergency Provider Student in an Organized Health Care Education/Training Program; PCP Emergency Medicine
DX: R63.0 Anorexia (principal); R11.0 Nausea; I25.10 Atherosclerotic heart disease of native coronary artery without angina pectoris; J44.9 Chronic obstructive pulmonary disease, unspecified; E11.9 Type 2 diabetes mellitus without complications; I10 Essential (primary) hypertension; E78.5 Hyperlipidemia, unspecified; I25.2 Old myocardial infarction; F17.210 Nicotine dependence, cigarettes, uncomplicated; Z79.899 Other long term (current) drug therapy
CPT/HCPCS: 80053; 83735; 85025; 96365; 99282; C9803; J2405; U0003; U0005

== ENCOUNTER 2021-07-19 16:58 | Emergency (ER) | payer MEDICARE, SELFPAY ==
[2021-07-19 17:50] VITALS: BP 123/72; PULSE 86; RESP 18; TEMP 36.9; O2SAT 94; BMI 34.4
[2021-07-19 18:21] LABS: Basophils # 0.1 K/mm3 (0-0.2); Basophils % 1.4 % (0.1-2.0); Eosinophils # 0.1 K/mm3 (0.0-0.4); Eosinophils % 0.7 % (0.1-12.0); Hematocrit 42.8 % (42.0-52.0); Hemoglobin 13.6 g/dL (14.1-18.0); Lymphocytes # 2.1 K/mm3 (0.7-4.5); Lymphocytes % 25.9 % (10-50); Mean Corpuscular HGB Conc 31.7 g/dL (31.8-35.4); Mean Corpuscular Volume 94.5 fl (80-94); Mean Platelet Volume 8.1 fl (7.4-10.4); Monocytes # 0.5 K/mm3 (0.1-1.0); Neutrophils # 5.4 K/mm3 (1.8-7.8); Neutrophils % 66.1 % (37.0-80.0); Platelet Count 304 K/mm3 (142-424); Red Blood Count 4.53 M/mm3 (4.60-6.20); Red Cell Distribution Width 14.1 % (11.5-17.5); White Blood Count 8.2 K/mm3 (4.8-10.8)
--- NOTE | 2021-07-19 18:23 | HMH.EDGENADL ---
ED Disposition Clinical Impression: Nausea, Loss of appetite, COVID-19 virus infection Disposition: Home, Self-Care Condition on Discharge: Good Additional Instructions: See Dr. Alexander in his office tomorrow. Referrals: Sanchez Osborne MD [Primary Care Provider] - - Critical Care Critical Care Time: No Attestation: On 07/19/21, the high probability of a clinically significant, sudden or life threatening deterioration of the following system(s) required my full and direct attention, intervention and personal management. The time I documented below is in addition to time spent performing reported procedures but includes the following listed in this critical care notation. Medical Decision Making - Medical Records Medical records reviewed: Yes: I reviewed the patient's medical records. MR Comment: Review of past records shows that he has gallstones on gallbladder ultrasound March 29, 2021. Has also seen Dr. Cheng for endoscopy around the same time which showed moderate nonerosive gastritis. - Paresh Inquiry Pt receiving controlled substance: No Vital Signs: 07/19/21 17:50 Temperature 98.4 F Temperature Source Oral Pulse Rate [Right Radial] 86 Respiratory Rate 18 Blood Pressure [Right Arm] 123/72 Blood Pressure Mean [Right Arm] 89 Blood Pressure Source [Right Arm] Automatic Cuff Blood Pressure Position [Right Arm] Sitting 02 Sat by Pulse Oximetry 94 L Oxygen Delivery Method Room Air - Lab Data Lab Results 07/19/21 18:13: WBC 8.2, RBC 4.53 L, Hgb 13.6 L, Hct 42.8, MCV 94.5 H, MCH 30.0, MCHC 31.7 L, RDW 14.1, Plt Count 304, MPV 8.1, Neut % (Auto) 66.1, Lymph % (Auto) 25.9, [place] % (Auto) 6.0, Eos % (Auto) 0.7, Baso % (Auto) 1.4, Neut # (Auto) 5.4, Lymph # (Auto) 2.1, [place] # (Auto) 0.5, Eos # (Auto) 0.1, Baso # (Auto) 0.1 07/19/21 18:13: Sodium 134 L, Potassium 4.3, Chloride 103, Carbon Dioxide 25, Anion Gap 10.3, BUN 18, Creatinine 0.90, Estimated Creat Clear 115, Estimated GFR 85, Est GFR ( Amer) 103, Glucose 173 H, Calcium 9.0, Total Bilirubin 0.7, AST 25, ALT 18, Alkaline Phosphatase 78, Total Protein 6.7, Albumin 3.6, Globulin 3.1, Albumin/Globulin Ratio 1.2 07/19/21 18:13: Troponin I < 0.01 07/19/21 18:13: Lipase 66 Result diagrams: 07/19/21 18:13 07/19/21 18:13 Orders (Tests/Meds): ED MEDICATIONS Discontinued Medications Generic Name Dose Route Start Last Admin Trade Name Freq PRN Reason Stop Dose Admin Sodium Chloride 1,000 mls @ 999 mls/hr 07/19/21 18:04 07/19/21 18:19 Sod Chlor 0.9% 1000ml Bag IV 07/19/21 19:04 999 mls/hr .Q1H1M ONE Administration Ondansetron HCl 4 mg 07/19/21 18:03 07/19/21 18:19 Ondansetron 4mg/2ml Vial IV 07/19/21 18:04 4 mg ONCE ONE Administration Prochlorperazine Edisylate 5 mg 07/19/21 19:12 07/19/21 19:19 Prochlorperazine 10mg/2ml Vial IV 07/19/21 19:13 5 mg ONCE ONE Administration ORDERS Category Date Time Status Rapid PCR Covid and Flu A/B Stat Lab 07/19/21 19:16 Received Troponin I Q3H Lab 07/19/21 21:45 Ordered Troponin I Q3H Lab 07/20/21 00:45 Ordered EKG Request [ECG Request by /Nse] Stat Y 07/19/21 18:41 Ordered - ECG Data Tracing #1 EKG interpreted by Andrea Cash MD: Rhythm: sinus Rate: 73 Star: normal Ectopy: none Conduction: normal ST Segment Changes: Nonspecific T Wave Changes: Nonspecific Q Waves: none No evidence of acute ischemia or injury No prior EKGs available for comparison. - Physician Consults Physician Consulted: Catherine Time: 19:10 Reason -: Pt condition Comment/Response: Give a dose of Compazine. Follow-up in the office tomorrow. Medical Decision Narrative: Symptoms may be due to COVID-19. However, he also has known gallstones and gastritis. No acute actionable items in the emergency department. Discussed with Dr. Alexander and he will see the patient in the office tomorrow for further care and follow-up. Patient is agreeable. General Adult HPI
--- NOTE | 2021-07-19 18:46 | ECG_ITS ---
APPROVED REPORT Exam: Resting ECG HR:73 bpm ECG Measurements Heart Rate 73 AXES ME 162 P 36 QRSd 104 QRS 10 QT 414 T 88 QTc 440 Conclusion SINUS RHYTHM NONSPECIFIC ST & T-WAVE ABNORMALITY BORDERLINE ECG UNCONFIRMED REPORT Electronically signed by : Robert Andujar MD 07/19/2021 21:10:17
[2021-07-19 18:54] LABS: Chloride 103 mmol/L (98-107); Sodium 134 mmol/L (136-145)
[2021-07-19 18:57] LABS: Alanine Aminotransferase 18 U/L (12-78); Alkaline Phosphatase 78 U/L (38-126); Aspartate Amino Transferase 25 U/L (17-59); Bilirubin,Total 0.7 mg/dl (0.2-1.3); Blood Urea Nitrogen 18 mg/dl (9-20); Carbon Dioxide 25 mmol/L (22.0-30.0); Creatinine Clearance Estimated 115 mL/min (50-200); Estimated Glomerular Filt Rate 85 ml/min (>60); GFR (African American) 103 ML/MIN (>60)
[2021-07-19 19:00] VITALS: BP 130/73; PULSE 76; O2SAT 93
[2021-07-19 19:03] LABS: Lipase 66 U/L (23-300)
[2021-07-19 19:20] LABS: Troponin I < 0.01 ng/ml (0.00-0.034)
[2021-07-19 19:22] LABS: Influenza A, PCR Not Detected (NotDetected); Influenza B, PCR Not Detected (NotDetected)
[2021-07-19 19:27] LABS: Albumin Level 3.6 g/dl (3.5-5.0); Albumin/Globulin Ratio 1.2 (1.1-1.8); Anion Gap 10.3 mEq/L (5-15); Globulin 3.1 g/dL (1.3-3.2); Glucose 173 mg/dl (74-100); Potassium 4.3 mmoL/L (3.5-5.1); Total Protein,Serum 6.7 g/dl (6.3-8.2)
[2021-07-19 19:51] VITALS: BP 132/72; PULSE 77; RESP 18; TEMP 37.1; O2SAT 94
[2021-07-19 20:08] LABS: Coronavirus 19, PCR Detected (NotDetected)
== END 2021-07-19 19:53 | disposition home or self-care (01) ==
PROVIDERS: Emergency Provider Emergency Medicine; PCP Emergency Medicine
DX: U07.1 COVID-19 (principal); J44.9 Chronic obstructive pulmonary disease, unspecified; I25.10 Atherosclerotic heart disease of native coronary artery without angina pectoris; E78.5 Hyperlipidemia, unspecified; I10 Essential (primary) hypertension; F17.210 Nicotine dependence, cigarettes, uncomplicated; Z79.899 Other long term (current) drug therapy
CPT/HCPCS: 80053; 83690; 84484; 85025; 93005; 96365; 96375; 99283; C9803; J2405; U0003; U0005

== ENCOUNTER 2021-07-28 23:24 | Emergency (ER) | payer MEDICARE, SELFPAY ==
[2021-07-28 23:25] VITALS: BP 156/84; PULSE 87; RESP 18; TEMP 36.4; O2SAT 96; BMI 33.7
--- NOTE | 2021-07-28 23:48 | CT_ITS ---
PROCEDURE INFORMATION: Exam: CT Abdomen And Pelvis Without Contrast Exam date and time: 07/28/2021 11:48 PM Age: 66 years old Clinical indication: Abdominal pain; Flank; Other: Bilateral; Additional info: Abdominal pain bilateral flank pain TECHNIQUE: Imaging protocol: Computed tomography of the abdomen and pelvis without contrast. Radiation optimization: All CT scans at this facility use at least one of these dose optimization techniques: automated exposure control; mA and/or kV adjustment per patient size (includes targeted exams where dose is matched to clinical indication); or iterative reconstruction. COMPARISON: US GALLBLADDER 03/29/2021 8:16 AM FINDINGS: Lungs: There are areas of linear scarring at the lung bases. There is a calcified granuloma noted within the peripheral aspect of the right lung base. There is a calcified lymph node identified within the right infrahilar region. Coronary artery calcifications are noted. Liver: The liver is normal in size and attenuation. No intrahepatic biliary dilitation. Gallbladder and bile ducts: There are gallstones present within the lumen of the gallbladder. The gallbladder wall does not appear thickened. There is no evidence of pericholecystic effusion. No extrahepatic biliary dilatation. Pancreas: Normal. No ductal dilation. Spleen: Normal. No splenomegaly. Granulomatous calcifications are noted. Adrenal glands: Normal. No mass. Kidneys and ureters: Normal. No hydronephrosis. Stomach and bowel: Unremarkable. No obstruction. No mucosal thickening. Small bowel mesentery is normal. Appendix: Unremarkable. Intraperitoneal space: Unremarkable. No free air. No significant fluid collection. Vasculature: There is a saccular infrarenal atheromatous abdominal aortic aneurysm. It measures 5.5 cm in anterior-posterior dimension, 5.4 cm in lateral dimension, and 7.8 cm in length. It does not extend into the iliac arteries. Arterial atheromatous calcifications are noted. Lymph nodes: Unremarkable. No enlarged lymph nodes. Urinary bladder: Unremarkable as visualized. Reproductive: Unremarkable as visualized. Bones/joints: Surgical repair of a fracture of the posterior right acetabulum identified. There is osteoarthritis of the right hip joint space seen in conjunction with this finding. Surgical reduction of old fractures of right superior and inferior pubic rami.There are degenerative changes noted within the lumbar spine. Soft tissues: Unremarkable. IMPRESSION: 1. Changes noted at the lung bases as described. 2. Cholelithiasis. No evidence of gallbladder wall thickening or pericholecystic effusion. 3. Saccular infrarenal atheromatous abdominal aortic aneurysm. It measures 5.5 x 5.4 x 7.8 cm. 4. Surgical repair fracture right acetabulum, and bases of right superior and inferior pubic rami. 5. No evidence of acute process within the abdomen or pelvis.
[2021-07-28 23:54] LABS: Appearance,Urine CLEAR (Clear); Bilirubin,Urine Negative (Negative); Blood, Urine Negative (Negative); Color,Urine YELLOW (Yellow); Glucose,Urine (UA) Negative (Negative); Ketones,Urine Negative (Negative); Leukocyte Esterase,Urine Negative (Negative); Microscopic, Urine URINE MICROSCOPIC (MICROSCOPIC); Nitrate,Urine Negative (Negative); Protein,Urine Negative (Negative); Specific Gravity, Urine 1.025 (1.005-1.030); Urobilinogen,Urine 0.2 EU/dl (0.2)
[2021-07-28 23:56] LABS: Basophils # 0.1 K/mm3 (0-0.2); Basophils % 1.4 % (0.1-2.0); Eosinophils # 0.2 K/mm3 (0.0-0.4); Eosinophils % 1.8 % (0.1-12.0); Hematocrit 41.7 % (42.0-52.0); Hemoglobin 13.3 g/dL (14.1-18.0); Lymphocytes # 2.9 K/mm3 (0.7-4.5); Lymphocytes % 34.7 % (10-50); Mean Corpuscular HGB Conc 31.8 g/dL (31.8-35.4); Mean Corpuscular Hemoglobin 29.8 pg (27.0-31.2); Mean Corpuscular Volume 93.7 fl (80-94); Mean Platelet Volume 7.9 fl (7.4-10.4); Monocytes # 0.7 K/mm3 (0.1-1.0); Monocytes % 7.8 % (1.7-9.3); Neutrophils # 4.6 K/mm3 (1.8-7.8); Neutrophils % 54.3 % (37.0-80.0); Platelet Count 554 K/mm3 (142-424); Red Blood Count 4.45 M/mm3 (4.60-6.20); Red Cell Distribution Width 13.8 % (11.5-17.5); White Blood Count 8.4 K/mm3 (4.8-10.8)
[2021-07-28 23:57] LABS: Amorphous Sediment,Urine Trace /lpf
--- NOTE | 2021-07-28 23:57 | PC.NURSE ---
Pt gone to rad
[2021-07-29 00:01] LABS: Alanine Aminotransferase 14 U/L (12-78); Albumin Level 3.7 g/dl (3.5-5.0); Alkaline Phosphatase 89 U/L (38-126); Anion Gap 12.2 mEq/L (5-15); Aspartate Amino Transferase 23 U/L (17-59); Bilirubin,Total 0.5 mg/dl (0.2-1.3); Blood Urea Nitrogen 11 mg/dl (9-20); Calcium 9.1 mg/dl (8.4-10.2); Carbon Dioxide 28 mmol/L (22.0-30.0); Chloride 103 mmol/L (98-107); Creatinine Clearance Estimated 111 mL/min (50-200); Estimated Glomerular Filt Rate 135 ml/min (>60); GFR (African American) 164 ML/MIN (>60); Globulin 3.6 g/dL (1.3-3.2); Glucose 114 mg/dl (74-100); Lipase 61 U/L (23-300); Potassium 4.2 mmoL/L (3.5-5.1); Sodium 139 mmol/L (136-145); Total Protein,Serum 7.3 g/dl (6.3-8.2)
--- NOTE | 2021-07-29 00:04 | PC.NURSE ---
Pt back from rad
[2021-07-29 00:06] LABS: C-Reactive Protein 73.5 mg/L (0-4)
[2021-07-29 00:23] LABS: Erythrocyte Sedimentation Rate 85 mm/hr (0-20)
[2021-07-29 00:30] VITALS: BP 135/84; PULSE 83; O2SAT 95
[2021-07-29 01:00] VITALS: BP 145/70; PULSE 74; O2SAT 94
[2021-07-29 01:30] VITALS: BP 160/78; PULSE 71; O2SAT 95
--- NOTE | 2021-07-29 02:07 | HMH.EDNVD ---
ED Disposition Clinical Impression: Cholelithiasis Qualifiers: Cholelithiasis location: gallbladder Cholecystitis presence: without cholecystitis Biliary obstruction: without biliary obstruction Qualified Code(s): K80.20 - Calculus of gallbladder without cholecystitis without obstruction Disposition: Home, Self-Care Condition on Discharge: Good Instructions: DI for Gallstones Additional Instructions: fluids and see card on friday and call surg Referrals: Sanchez Osborne MD [Primary Care Provider] - Fili Cheng MD [Staff Physician] - - Critical Care Critical Care Time: No Attestation: On 07/28/21, the high probability of a clinically significant, sudden or life threatening deterioration of the following system(s) required my full and direct attention, intervention and personal management. The time I documented below is in addition to time spent performing reported procedures but includes the following listed in this critical care notation. Medical Decision Making - Medical Records Medical records reviewed: Yes: I reviewed the patient's medical records. - Paresh Inquiry Pt receiving controlled substance: No Vital Signs: 07/28/21 23:25 07/29/21 00:30 07/29/21 01:00 Temperature 97.6 F Temperature Source Oral Pulse Rate 83 74 Pulse Rate [Right Radial] 87 Respiratory Rate 18 Blood Pressure 135/84 145/70 H Blood Pressure [Right Arm] 156/84 H Blood Pressure Mean [Right Arm] 108 Blood Pressure Source [Right Arm] Automatic Cuff Blood Pressure Position [Right Arm] Sitting 02 Sat by Pulse Oximetry 96 95 94 L Oxygen Delivery Method Room Air Room Air Room Air 07/29/21 01:30 Temperature Temperature Source Pulse Rate 71 Pulse Rate [Right Radial] Respiratory Rate Blood Pressure 160/78 H Blood Pressure [Right Arm] Blood Pressure Mean [Right Arm] Blood Pressure Source [Right Arm] Blood Pressure Position [Right Arm] 02 Sat by Pulse Oximetry 95 Oxygen Delivery Method Room Air - Lab Data Lab results reviewed: Yes: I reviewed the patient's lab results. Lab Results 07/28/21 23:33: Urine Color Yellow, Urine Appearance Clear, Urine pH 6.0, Ur Specific [place] 1.025, Urine Protein Negative, Urine Glucose (UA) Negative, Urine Ketones Negative, Urine Blood Negative, Urine Nitrate Negative, Urine Bilirubin Negative, Urine Urobilinogen 0.2, Ur Leukocyte Esterase Negative, Urine WBC 3-5, Amorphous Sediment Trace 07/28/21 23:41: WBC 8.4, RBC 4.45 L, Hgb 13.3 L, Hct 41.7 L, MCV 93.7, MCH 29.8, MCHC 31.8, RDW 13.8, Plt Count 554 H, MPV 7.9, Neut % (Auto) 54.3, Lymph % (Auto) 34.7, Boundary % (Auto) 7.8, Eos % (Auto) 1.8, Baso % (Auto) 1.4, Neut # (Auto) 4.6, Lymph # (Auto) 2.9, Boundary # (Auto) 0.7, Eos # (Auto) 0.2, Baso # (Auto) 0.1, ESR 85 H 07/28/21 23:41: Sodium 139, Potassium 4.2, Chloride 103, Carbon Dioxide 28, Anion Gap 12.2, BUN 11, Creatinine 0.60 L, Estimated Creat Clear 111, Estimated GFR 135, Est GFR ( Amer) 164, Glucose 114 H, Calcium 9.1, Total Bilirubin 0.5, AST 23, ALT 14, Alkaline Phosphatase 89, C-Reactive Protein 73.5 H, Total Protein 7.3, Albumin 3.7, Globulin 3.6 H, Albumin/Globulin Ratio 1.0 L, Procalcitonin 0.070 07/28/21 23:41: Lipase 61 Result diagrams: 07/28/21 23:41 07/28/21 23:41 Orders (Tests/Meds): ED MEDICATIONS Generic Name Dose Route Start Last Admin Trade Name Freq PRN Reason Stop Dose Admin Sodium Chloride 1,000 mls @ 999 mls/hr 07/28/21 23:45 07/29/21 00:11 Sod Chlor 0.9% 1000ml Bag IV 07/29/21 00:45 999 mls/hr .Q1H1M DAYA Administration Sodium Chloride 8 ml 07/28/21 23:48 Sodium Chloride 0.9% 10ml Vial IV 08/27/21 23:47 NEEDED PRN dilute pepcid Discontinued Medications Generic Name Dose Route Start Last Admin Trade Name Freq PRN Reason Stop Dose Admin Famotidine 20 mg 07/28/21 23:48 07/29/21 00:11 Famotidine 20mg/2ml Vial IV 07/28/21 23:49 20 mg ONCE ONE Administration Ketorolac Tromethamine
[2021-07-29 02:27] VITALS: BP 180/99; PULSE 74; RESP 18; TEMP 36.6; O2SAT 97
--- NOTE | 2021-07-29 02:30 | PC.NURSE ---
MD AWARE OF ELEVATED BP. PT TO TAKE HIS BP MEDS UPON ARRIVAL HOME.
== END 2021-07-29 02:31 | disposition home or self-care (01) ==
PROVIDERS: Emergency Provider Emergency Medicine; PCP Emergency Medicine
DX: K80.20 Calculus of gallbladder without cholecystitis without obstruction (principal); J44.9 Chronic obstructive pulmonary disease, unspecified; I10 Essential (primary) hypertension; E78.5 Hyperlipidemia, unspecified; E11.9 Type 2 diabetes mellitus without complications; F17.210 Nicotine dependence, cigarettes, uncomplicated
CPT/HCPCS: 74176; 80053; 81001; 83690; 84145; 85025; 85651; 86140; 96365; 96375; 99282; J2405

== ENCOUNTER → 2021-08-14 07:17 | Outpatient (CLI) | payer MEDICARE, SELFPAY ==
--- NOTE | 2021-08-14 | CA_ITS ---
APPROVED REPORT Exam: Pharmacologic Technologist: Leah Kirby Ht: 5 ft 10 in Wt: 230 lbs BSA: 2.21 m2 HR: 76 bpm BP: 168/95 mmHg Indications: Shortness of Air Medical History Medications: Amlodipine,,,,, Lisinopril,,,,, Levothyroxine,,,,, Aspirin,,,,, Metformin,,,,, Gabapentin,,,,, Vitamin D3,,,,, Pantoprazole,,,,, Atorvastatin,,,,, Carvedilol,,,,, Glipizide,,,,, Nicotine,,,,, Stress Test Details Test: LEXISCAN HR Resting HR: 80 bpm Max Heart Rate (APMHR): 155.345393 bpm Max HR Achieved: 88 bpm Target HR (85% APMHR): 131.129454 bpm % of APMHR: 56.77 Recovery HR: 82 bpm BP Resting BP: 168.0/95.0 mmHg Max BP: 168.0/95.0 mmHg Recovery BP: 151.0/84.0 mmHg ECG Resting ECG: Normal sinus rhythm Clinical Exercise duration: 04:00 min Highest Stage Achieved: Exercise capacity: 1.0 METs Stress ECG Conclusion Symptoms: Shortness of air. No chest pain. Arrhythmias/Ectopy: None ST-T Changes: NS T wave changes. Conclusion: Unremarkable Lexiscan stress. Myoview images reported separately. Electronically signed by : Lavon Shea MD 08/14/2021 19:33:10
--- NOTE | 2021-08-14 07:19 | CA_ITS ---
APPROVED REPORT EXAM: Comprehensive 2D, Doppler, and color-flow Echocardiogram Reel Worker: Cristine Yost, RCS, RVS Ht: 5 ft 10 in Wt: 230lbs BSA: 2.21 BP: 146/86 mmHg Indications: SOA, [id number], PRE-OP GB, DM 2D Dimensions Aortic Root 3.19 cm M: 3.1 - 3.7 LA Volume 44.30 mL Left Atrium 3.67 cm M: 3.0 - 4.0 LA Volume Index 20.04 mL/m2 (M/F) 16-34 LVOT 1.99 cm (M/F) 1.5-2.5 M-Mode Dimensions RVDd 2.70 cm (0.9-2.6) LA Diam 4.15 cm (1.9-4.0) LVDd 5.98 cm (3.5-5.7) Ao Diam 3.57 cm (2.0-3.7) LVDs 4.10 cm (3.5-5.7) IVSd 1.12 cm (0.6-1.1) PWd 1.12 cm (0.6-1.1) EF (Teich) 58.50% EPSs 1.00 cm FS 31.40% EDV (Teich) 178.60 mL TAPSE 1.97 (<1.7) ESV (Teich) 74.20 mL LV Diastology E Decel Time 220.00 (160-240 msec) E/A Ratio 1.11 MED E' 6.80 (< 7 cm/sec) MED A' 8.30 cm/s E'/MED E' Ratio 13.65 (>14) LAT E' 8.40 (<10 cm/sec) LAT A' 7.40 cm/s E/LAT E' Ratio 11.05 (>14) Aortic Valve LVOT Max 94.00 (70-110 cm/s) LVOT VTI 20.60 cm AoV Peak Josafat. 124.00 (50-130 cm/s) AO Peak GR. 6.20 mmHg AO Mean GR. 3.40 (<5 mmHg) AO VTI 27.58 (18-25 cm) KAY (VTI) 2.32 (2.5-4.5 cm2) Mitral Valve MV A Velocity 83.00 (40-130 cm/s) E/A Ratio 1.11 MV Decel. Time 220.00 (160-240 ms) MV Mean Gr. 2.10 (<2mmHg) Pulmonary Valve PV Peak Velocity 88.00 (50-150 cm/s) Left Ventricle Left atrium is mildly enlarged, left ventricle is normal size, mild concentric left ventricular hypertrophy, visually estimated ejection fraction 50% with no regional wall motion abnormality, diastolic parameters are inconclusive. Right Ventricle Right atrium and right ventricle are normal size and contractility. Aortic Valve Aortic valve is minimally thickened and fibrosed, there is no aortic stenosis or aortic insufficiency. Mitral Valve Mitral valve grossly normal, there is trace mitral regurgitation. Tricuspid Valve Tricuspid valve grossly normal, there is trace tricuspid regurgitation, tricuspid regurgitation jet velocity is inadequate for calculation of the right ventricular systolic pressure. Pulmonic Valve Pulmonic valve is poorly visualized. Great Vessels Aortic root is normal size. Inferior vena cava normal size with normal inspiratory collapse. Pericardium No significant pericardial effusion. Conclusion 1. Mildly enlarged left atrium, normal left ventricular size, mild concentric left ventricular hypertrophy, visually estimated ejection fraction 50% with no regional wall motion abnormality, diastolic parameters are inconclusive in the study. 2. Thickened and calcified aortic valve without aortic stenosis or aortic insufficiency. 3. Trace mitral and tricuspid regurgitation. 4. No significant pericardial effusion noted. Electronically signed by : Lavon Shea MD 08/14/2021 19:03:50
--- NOTE | 2021-08-14 07:22 | NM_ITS ---
APPROVED REPORT Exam: Nuclear Stress Test Indication: SOB, CAD, CABG, Pre op, HTN, DM, Tobacco use, Family history Patient Location: Outpatient Stress Tech: Leah Kirby MS Tech:Denise Park, ARRT, RT (R)(N) Ht: 5 ft 10 in Wt: 230 lbs HR: 76 bpm BP: 168/95 mmHg BSA: 2.21 m2 BMI: 32.9 History: SOB, CAD, CABG, Pre op, HTN, DM, Tobacco use, Family history Procedure: Patient received a 0.4 mg of intravenous Lexiscan, resting heart rate 76 bpm, resting blood pressure 168/95 mmHg, with Lexiscan maximum heart rate achived was 86 bpm which is Less than 85 % of the maximum predicted heart rate and blood pressure was 147/78 mmHg. With Lexiscan, patient denied any complaint of chest pain. Electrocardiogram Resting electrocardiogram showed sinus rhythm, with Lexiscan there is less than 1.[address] segment depression noted from the baseline EKG. The EKG portion of the Lexiscan is nondiagnostic. Cardiac Stress and Resting SPECT Images: Cardiac Stress and Resting SPECT images were obtained using technetium 99m Myoview 30.8 mCi stress and 10.06 mCi at rest. Patient would not lay on his stomach for prone images. Gated SPECT for analysis of segmental wall motion and calculation of the ejection fraction also done. Cardiac stress and rest SPECT may show reversible ischemia involving the anterolateral wall, computer derived ejection fraction is 48% with mild anterolateral wall hypokinesis, right ventricle is mildly enlarged with normal contractility. Conclusion: 1. The EKG portion of the Lexiscan is nondiagnostic. 2. Scintigraphic evidence of reversible ischemia involving the anterolateral wall, computer derived ejection fraction is 48% with segmental wall motion abnormality described above, right ventricle is mildly enlarged with normal contractility. 3. Abnormal Lexiscan Myoview study. Electronically signed by : Lavon Shea MD 08/14/2021 19:49:12
--- NOTE | 2021-08-14 09:30 | HMH.ITSHM ---
Current Home Medications as stated by this patient Chinmay Gomes or senior customer service representative. []PROMETHAZINE PANTOPRAXOLE METFORMIN LISINOPRIL LEVOTHYROXINE HYDROCODONE GLIPIZIDE GABAPENTIN FLUTICASONE CLOPIDOGREL VITAMIN D3 CARVEDILOL ATORVASTATIN ASA AMLODIPINE
== END ==
LOC: RAD 07:19
PROVIDERS: PCP Emergency Medicine; Visit Provider Urology
DX: E11.69 Type 2 diabetes mellitus with other specified complication (principal); E66.9 Obesity, unspecified; E78.5 Hyperlipidemia, unspecified; I10 Essential (primary) hypertension; I25.118 Atherosclerotic heart disease of native coronary artery with other forms of angina pectoris; Z01.810 Encounter for preprocedural cardiovascular examination; Z72.0 Tobacco use; Z95.1 Presence of aortocoronary bypass graft; R06.00 Dyspnea, unspecified; Z79.84 Long term (current) use of oral hypoglycemic drugs; Z68.34 Body mass index [BMI] 34.0-34.9, adult
CPT/HCPCS: 78452; 93017; 93306; A9502; J2785

== ENCOUNTER → 2021-08-22 14:52 | Outpatient (CLI) | payer MEDICARE, SELFPAY ==
[2021-08-22 15:33] LABS: Basophils # 0.2 K/mm3 (0-0.2); Basophils % 1.6 % (0.1-2.0); Eosinophils # 0.3 K/mm3 (0.0-0.4); Hematocrit 41.5 % (42.0-52.0); Hemoglobin 12.8 g/dL (14.1-18.0); Lymphocytes # 3.5 K/mm3 (0.7-4.5); Lymphocytes % 37.2 % (10-50); Mean Corpuscular HGB Conc 30.7 g/dL (31.8-35.4); Mean Corpuscular Hemoglobin 29.9 pg (27.0-31.2); Mean Corpuscular Volume 97.4 fl (80-94); Mean Platelet Volume 7.7 fl (7.4-10.4); Monocytes # 0.7 K/mm3 (0.1-1.0); Neutrophils # 4.9 K/mm3 (1.8-7.8); Neutrophils % 51.2 % (37.0-80.0); Platelet Count 363 K/mm3 (142-424); Red Blood Count 4.26 M/mm3 (4.60-6.20); Red Cell Distribution Width 14.8 % (11.5-17.5); White Blood Count 9.5 K/mm3 (4.8-10.8)
[2021-08-22 16:12] LABS: Anion Gap 9.5 mEq/L (5-15); Blood Urea Nitrogen 13 mg/dl (9-20); Calcium 9.1 mg/dl (8.4-10.2); Carbon Dioxide 30 mmol/L (22.0-30.0); Chloride 104 mmol/L (98-107); Estimated Glomerular Filt Rate 167 ml/min (>60); GFR (African American) 202 ML/MIN (>60); Glucose 104 mg/dl (74-100); Potassium 4.5 mmoL/L (3.5-5.1); Sodium 139 mmol/L (136-145)
== END ==
PROVIDERS: Visit Provider Physician Assistant
DX: E11.69 Type 2 diabetes mellitus with other specified complication (principal); E66.9 Obesity, unspecified; E78.5 Hyperlipidemia, unspecified; I10 Essential (primary) hypertension; I25.10 Atherosclerotic heart disease of native coronary artery without angina pectoris; R06.00 Dyspnea, unspecified; R94.30 Abnormal result of cardiovascular function study, unspecified; Z01.810 Encounter for preprocedural cardiovascular examination; Z72.0 Tobacco use; Z95.1 Presence of aortocoronary bypass graft; U07.1 COVID-19; Z79.84 Long term (current) use of oral hypoglycemic drugs; Z68.34 Body mass index [BMI] 34.0-34.9, adult
CPT/HCPCS: 80048; 85025; C9803; U0003; U0005

== ENCOUNTER → 2021-10-15 09:30 | Outpatient (CLI) | payer MEDICARE, SELFPAY ==
[2021-10-15 10:32] LABS: Basophils # 0.1 K/mm3 (0-0.2); Basophils % 1.6 % (0.1-2.0); Eosinophils # 0.2 K/mm3 (0.0-0.4); Eosinophils % 2.5 % (0.1-12.0); Hematocrit 43.4 % (42.0-52.0); Hemoglobin 13.5 g/dL (14.1-18.0); Lymphocytes # 2.6 K/mm3 (0.7-4.5); Lymphocytes % 30.5 % (10-50); Mean Corpuscular HGB Conc 31.2 g/dL (31.8-35.4); Mean Corpuscular Hemoglobin 30.3 pg (27.0-31.2); Mean Platelet Volume 7.8 fl (7.4-10.4); Monocytes # 0.5 K/mm3 (0.1-1.0); Monocytes % 6.2 % (1.7-9.3); Neutrophils % 59.2 % (37.0-80.0); Platelet Count 339 K/mm3 (142-424); Red Blood Count 4.47 M/mm3 (4.60-6.20); Red Cell Distribution Width 14.8 % (11.5-17.5); White Blood Count 8.5 K/mm3 (4.8-10.8)
[2021-10-15 10:39] LABS: Anion Gap 7.4 mEq/L (5-15); Blood Urea Nitrogen 13 mg/dl (9-20); Carbon Dioxide 30 mmol/L (22.0-30.0); Chloride 106 mmol/L (98-107); Estimated Glomerular Filt Rate 135 ml/min (>60); GFR (African American) 164 ML/MIN (>60); Glucose 158 mg/dl (74-100); Potassium 4.4 mmoL/L (3.5-5.1); Sodium 139 mmol/L (136-145)
== END ==
PROVIDERS: Visit Provider Internal Medicine
DX: E11.69 Type 2 diabetes mellitus with other specified complication (principal); E66.9 Obesity, unspecified; E78.5 Hyperlipidemia, unspecified; I10 Essential (primary) hypertension; I25.10 Atherosclerotic heart disease of native coronary artery without angina pectoris; R06.00 Dyspnea, unspecified; Z01.810 Encounter for preprocedural cardiovascular examination; Z72.0 Tobacco use; Z95.1 Presence of aortocoronary bypass graft
CPT/HCPCS: 36415; 80048; 85025; C9803; U0003; U0005

== ENCOUNTER 2021-10-16 07:37 | Day surgery (SDC) | payer MEDICARE, SELFPAY ==
[2021-10-16] VITALS (11 sets, daily range): BP systolic 148–201; BP diastolic 84–116; PULSE 63–82; RESP 16–20; O2SAT 90–94; BMI 34.4
--- NOTE | 2021-10-16 07:02 | IR_ITS ---
APPROVED REPORT Patient Location: Outpatient Print And Pattern Designer: ROSIE Donahue RT (R) PROCEDURES Left heart catheterization Left ventriculogram Selective coronary angiogram Left internal mammary angiography Selective engagement of saphenous vein graft to the diagonal artery Selective engagement of the saphenous vein graft to the right coronary Selective engagement of the saphenous vein graft to the circumflex artery Attempted angioplasty of the wainwright circulation via the saphenous vein graft to the circumflex artery INDICATION Coronary artery disease, Preoperative evaluation, Abnormal Myoview, History of coronary bypass surgery Informed consent was obtained prior to the procedure. COMPLICATIONS None Estimated Blood Loss: Less than 10 mls TECHNIQUE One percent lidocaine used to anesthetize the right groin. The right femoral artery was accessed via the Seldinger technique and a 5 Malaysian sheath was placed in the right femoral artery. A JL 4, JR4 catheter were used to perform left heart catheterization, left ventriculogram selective coronary angiography as well as selective engagement of the 3 vein grafts and the left internal mammary artery. The 5 Malaysian sheath was initially upsized to a 6 Malaysian sheath during the diagnostic portion in order to better provide cannulation of the saphenous vein graft. An AR-1 guide catheter was used to cannulate the saphenous to the right coronary artery while an LCB guide catheter was used to cannulate the saphenous vein graft to the circumflex artery and diagonal artery. At the end the diagnostic angiogram therapeutic heparin was administered giving a therapeutic ACT and the LCB guide catheter was placed in the saphenous vein graft to the circumflex artery. A Choice PT floppy wire was placed through the saphenous vein graft into the wainwright circumflex artery. A guide liner was then advanced and a 2.25 x 12 mm Xience stent was attempted to be placed through the saphenous vein graft into the wainwright vessel. The stent would catch at the anastomosis. An additional 2 mm x 12 mm resolute Dennis stent was then attempted to traverse the tortuosity and anastomosis however this too would not pass. The Choice PT extra-support wire was then placed into the wainwright circumflex artery via the saphenous vein graft in order to provide additional support however this too would not allow passage of the 2 mm stent. At the end of the procedure the apparatus was removed the groin was reprepped closure changed sheath was removed good hemostasis was achieved using TR banding patient was transferred the postoperative area stable condition ANGIOGRAPHIC RESULTS The left main artery Ostially occluded The right coronary artery Ostially occluded The DANIELSON ventriculogram reveals Not performed The left ventricular end-diastolic pressure Not measured CHAN to LAD widely patent. Distal to the anastomosis the LAD has 30% mid vessel stenosis Saphenous vein graft to diagonal artery ostially occluded Saphenous vein graft to dominant right coronary artery widely patent Saphenous vein graft to circumflex artery is widely patent. Distal to the anastomosis there is a moderate amount of territory which is supplied by a bifurcating obtuse marginal artery. The proximal portion of this obtuse marginal artery has an 80 to 90% stenosis IMPRESSION Patent CHAN to LAD Patent saphenous vein graft to the dominant right coronary artery Patent saphenous vein graft to wainwright circumflex artery which then has a severe stenosis distal to the anastomosis which will be managed medically Occluded saphenous vein graft to the diagonal artery PLAN 1. Medical management 2. Patient is alone acceptable risk to proceed wit
[2021-10-16 14:34] LABS: CATHL Activated Clotting Time > 400 SEC (74-125)
== END 2021-10-16 14:00 | disposition home or self-care (01) ==
LOC: CATHLAB 07:38
PROVIDERS: PCP Emergency Medicine; Visit Provider Internal Medicine
DX: E11.69 Type 2 diabetes mellitus with other specified complication (principal); E78.5 Hyperlipidemia, unspecified; I10 Essential (primary) hypertension; I25.118 Atherosclerotic heart disease of native coronary artery with other forms of angina pectoris; R06.00 Dyspnea, unspecified; R94.30 Abnormal result of cardiovascular function study, unspecified; Z95.1 Presence of aortocoronary bypass graft; F17.210 Nicotine dependence, cigarettes, uncomplicated; Z79.84 Long term (current) use of oral hypoglycemic drugs; Z79.899 Other long term (current) drug therapy; J44.9 Chronic obstructive pulmonary disease, unspecified; I25.2 Old myocardial infarction
CPT/HCPCS: 85347; 93459; 99152; 99153; C1725; C1760; C1769; C1894; J1644; Q9967

== ENCOUNTER 2022-02-18 10:05 | Emergency (ER) | payer MEDICARE, SELFPAY ==
[2022-02-18 10:06] VITALS: BP 164/95; PULSE 80; RESP 18; TEMP 36.7; O2SAT 99; BMI 35.9
[2022-02-18 10:22] LABS: POC Glucose,Bedside 229 (70-110)
[2022-02-18 10:37] VITALS: BP 158/76; PULSE 74; O2SAT 98
--- NOTE | 2022-02-18 10:37 | PC.NURSE ---
Barby Vergara, RN aware of patients glucose
[2022-02-18 11:54] VITALS: BP 158/76; PULSE 74; RESP 18; TEMP 36.7; O2SAT 98
--- NOTE | 2022-02-18 11:54 | PC.NURSE ---
Pt LWBS by ER MD at this time, pt reports he does not want to wait any longer has to take his son somewhere. Pt ambulated out of ER at this time.
== END 2022-02-18 11:54 | disposition left against medical advice (07) ==
PROVIDERS: Emergency Provider Emergency Medicine; PCP Emergency Medicine
DX: S91.102A Unspecified open wound of left great toe without damage to nail, initial encounter (principal); T81.89XA Other complications of procedures, not elsewhere classified, initial encounter; Z53.21 Procedure and treatment not carried out due to patient leaving prior to being seen by health care provider; I25.10 Atherosclerotic heart disease of native coronary artery without angina pectoris; E11.9 Type 2 diabetes mellitus without complications; Z79.84 Long term (current) use of oral hypoglycemic drugs; Z79.02 Long term (current) use of antithrombotics/antiplatelets; Z79.82 Long term (current) use of aspirin; Z79.899 Other long term (current) drug therapy
CPT/HCPCS: 82962; 99211

== ENCOUNTER → 2022-05-27 09:25 | Outpatient (CLI) | payer MEDICARE, SELFPAY ==
[2022-05-27 13:45] LABS: Basophils # 0.1 K/mm3 (0-0.2); Basophils % 0.8 % (0.1-2.0); Eosinophils # 0.1 K/mm3 (0.0-0.4); Eosinophils % 0.9 % (0.1-12.0); Hematocrit 43.6 % (42.0-52.0); Hemoglobin 13.8 g/dL (14.1-18.0); Lymphocytes % 24.6 % (10-50); Mean Corpuscular HGB Conc 31.6 g/dL (31.8-35.4); Mean Corpuscular Hemoglobin 29.3 pg (27.0-31.2); Mean Corpuscular Volume 92.6 fl (80-94); Mean Platelet Volume 8.6 fl (7.4-10.4); Monocytes % 7.8 % (1.7-9.3); Neutrophils % 65.9 % (37.0-80.0); Platelet Count 316 K/mm3 (142-424); Red Cell Distribution Width 14.2 % (11.5-17.5); White Blood Count 12.2 K/mm3 (4.8-10.8)
[2022-05-27 13:52] LABS: Alanine Aminotransferase 14 U/L (12-78); Albumin Level 3.7 g/dl (3.5-5.0); Albumin/Globulin Ratio 1.3 (1.1-1.8); Alkaline Phosphatase 142 U/L (38-126); Anion Gap 18.1 mEq/L (5-15); Aspartate Amino Transferase 16 U/L (17-59); Bilirubin,Total 0.6 mg/dl (0.2-1.3); Blood Urea Nitrogen 16 mg/dl (9-20); Calcium 9.6 mg/dl (8.4-10.2); Carbon Dioxide 29 mmol/L (22.0-30.0); Chloride 93 mmol/L (98-107); Chol/HDL Ratio 3.4 (1-3.5); Cholesterol 144 mg/dl (140-200); Estimated Glomerular Filt Rate 135 ml/min (>60); GFR (African American) 164 ML/MIN (>60); Globulin 2.8 g/dL (1.3-3.2); Glucose 266 mg/dl (74-100); HDL Cholesterol 42 mg/dl (40-60); Potassium 4.1 mmoL/L (3.5-5.1); Sodium 136 mmol/L (136-145); Total Protein,Serum 6.5 g/dl (6.3-8.2); Triglycerides 199 mg/dl (30-150); VLDL Cholesterol 40 mg/dL (0-40)
[2022-05-27 14:04] LABS: Direct LDL Cholesterol 71.86 mg/dL (100-129)
[2022-05-27 14:09] LABS: 25-OH Vitamin D, Total 14.3 ng/mL (30-100)
[2022-05-27 14:10] LABS: Free T4 (Free Thyroxine) 1.28 ng/dl (0.78-2.19)
[2022-05-27 14:11] LABS: Creatinine,Urine Random 102 mg/dL (Not Estab.)
[2022-05-27 14:22] LABS: Prostate Specific Ag Screen 0.9 ng/ml (0.0-4.0); Thyroid Stimulating Hormone 2.58 uIU/mL (0.465-4.68)
[2022-05-27 14:27] LABS: Hemoglobin A1C 10.7 % (4.0-6.0)
== END ==
PROVIDERS: PCP Emergency Medicine; Visit Provider Emergency Medicine
DX: E13.9 Other specified diabetes mellitus without complications (principal); Z12.5 Encounter for screening for malignant neoplasm of prostate; E55.9 Vitamin D deficiency, unspecified; Z79.899 Other long term (current) drug therapy; Z79.84 Long term (current) use of oral hypoglycemic drugs
CPT/HCPCS: 80053; 80061; 82043; 82306; 82570; 83036; 84439; 84443; 85025; G0103

== ENCOUNTER 2022-08-15 05:30 | Emergency (ER) | payer MEDICARE, SELFPAY ==
[2022-08-15 05:42] VITALS: BP 198/100; PULSE 86; RESP 16; TEMP 37; O2SAT 98; BMI 35.2
--- NOTE | 2022-08-15 05:57 | HMH.EDEYEP ---
Discharge Plan Disposition Patient Disposition: Home, Self-Care Prescriptions Prescriptions: New clindamycin HCl 300 mg capsule 300 mg PO Q8H 7 Days Qty: 21 0RF No Action hydrocodone-acetaminophen 7.5-325 mg tablet 7.5 tab PO Q6H PRN carvedilol 12.5 mg tablet See Rx Instructions .ROUTE .COMPLEX Qty: 180 0RF Dose Instruction: TAKE 1 TABLET BY MOUTH TWICE DAILY FOR BLOOD PRESSURE Rx Instructions: TAKE 1 TABLET BY MOUTH TWICE DAILY FOR BLOOD PRESSURE clopidogrel 75 mg tablet See Rx Instructions .ROUTE .COMPLEX Qty: 90 1RF Dose Instruction: TAKE ONE TABLET BY MOUTH EVERY DAY FOR BLOOD THINNER Rx Instructions: TAKE ONE TABLET BY MOUTH EVERY DAY FOR BLOOD THINNER aspirin 81 mg tablet,delayed release (DR/EC) 81 mg PO DAILY Qty: 90 0RF cholecalciferol (vitamin D3) 25 mcg (1,000 unit) capsule 25 mcg PO DAILY Qty: 90 0RF levothyroxine 25 mcg capsule 25 mcg PO DAILY Qty: 90 0RF (DME) FreeStyle Mayuri 14 Day [place] Misc See Rx Instructions MISCELLANE .MEDSUPPLY Qty: 1 0RF Rx Instructions: As directed gabapentin 800 mg tablet 800 mg PO QID Qty: 120 1RF pantoprazole 40 mg tablet,delayed release (DR/EC) See Rx Instructions .ROUTE .COMPLEX Qty: 90 2RF Dose Instruction: TAKE ONE TABLET BY MOUTH EVERY DAY FOR REFLUX/ACID REFLUX Rx Instructions: TAKE ONE TABLET BY MOUTH EVERY DAY FOR REFLUX/ACID REFLUX promethazine 25 mg tablet See Rx Instructions .ROUTE .COMPLEX Qty: 60 0RF Dose Instruction: TAKE 1 TABLET BY MOUTH THREE TIMES DAILY NEEDED NAUSEA AND VOMITING MAY CAUSE DROWSINESS Rx Instructions: TAKE 1 TABLET BY MOUTH THREE TIMES DAILY NEEDED NAUSEA AND VOMITING MAY CAUSE DROWSINESS glipizide 10 mg tablet extended release 24hr See Rx Instructions .ROUTE .COMPLEX Qty: 60 2RF Dose Instruction: TAKE 1 TABLET BY MOUTH TWICE DAILY Rx Instructions: TAKE 1 TABLET BY MOUTH TWICE DAILY cholecalciferol (vitamin D3) 1,250 mcg (50,000 unit) capsule 1,250 mcg PO WEEKLY Qty: 14 3RF Farxiga 5 mg tablet 5 mg PO DAILY Qty: 90 0RF Januvia 100 mg tablet 100 mg PO DAILY Qty: 90 0RF amlodipine 5 mg tablet See Rx Instructions .ROUTE .COMPLEX Qty: 90 0RF Dose Instruction: TAKE 1 TABLET BY MOUTH ONCE DAILY Rx Instructions: TAKE 1 TABLET BY MOUTH ONCE DAILY (DME) FreeStyle Mayuri 14 Day Sensor Kit See Rx Instructions .ROUTE .COMPLEX Qty: 1 4RF Dose Instruction: CHANGE EVERY 14 DAYS Rx Instructions: CHANGE EVERY 14 DAYS metformin 1,000 mg tablet See Rx Instructions .ROUTE .COMPLEX Qty: 180 0RF Dose Instruction: TAKE 1 TABLET BY MOUTH TWICE DAILY Rx Instructions: TAKE 1 TABLET BY MOUTH TWICE DAILY lisinopril 10 mg tablet See Rx Instructions .ROUTE .COMPLEX Qty: 90 0RF Dose Instruction: TAKE 1 TABLET BY MOUTH ONCE DAILY Rx Instructions: TAKE 1 TABLET BY MOUTH ONCE DAILY atorvastatin 40 mg tablet See Rx Instructions .ROUTE .COMPLEX Qty: 90 3RF Dose Instruction: TAKE 1 TABLET BY MOUTH ONCE DAILY Rx Instructions: TAKE 1 TABLET BY MOUTH ONCE DAILY Referrals Follow up/Referrals: Sanchez Osborne MD [Primary Care Provider] - See instructions Clinical Impressions Clinical Impression: Blepharitis of eyelid of left eye Instructions Patient Instructions: DI for Blepharitis Discharge ED Provider: Dylon (ED)Sanchez Eye Problem HPI General Chief complaint: Eye Problems Stated complaint: Left eye swollen and hurts to touch Time Seen by Provider: 08/15/22 05:57 Mode of Arrival: Ambulatory Source of Information: Patient and Medical Record Limitations: No Limitations Description of Symptoms (Recalled from ER Triage Doc. by RN): pt advises he went to the eye doctor 2 days ago for swelling of his left eye and was given antibiotic drops. Pt presents this am and advises it is not any better and c
[2022-08-15 06:33] VITALS: BP 142/73; PULSE 78; RESP 18; TEMP 36.6; O2SAT 99
== END 2022-08-15 06:36 | disposition home or self-care (01) ==
PROVIDERS: Emergency Provider Emergency Medicine; PCP Emergency Medicine
DX: H01.004 Unspecified blepharitis left upper eyelid (principal); E11.9 Type 2 diabetes mellitus without complications; I25.10 Atherosclerotic heart disease of native coronary artery without angina pectoris; F17.210 Nicotine dependence, cigarettes, uncomplicated; Z95.1 Presence of aortocoronary bypass graft
CPT/HCPCS: 99283; 99284; J0696

== ENCOUNTER 2022-08-26 07:29 | Emergency (ER) | payer MEDICARE, SELFPAY ==
[2022-08-26 07:43] VITALS: BP 184/109; PULSE 83; RESP 14; TEMP 36.3; O2SAT 98; BMI 35.4
[2022-08-26 07:49] VITALS: BP 189/99; PULSE 79; RESP 20; O2SAT 97
[2022-08-26 07:50] VITALS: BP 189/99
--- NOTE | 2022-08-26 07:59 | CT_ITS ---
FINAL REPORT TECHNIQUE: Thin section axial images were obtained from skull base to vertex without contrast. Coronal reconstruction images were obtained from the axial data. Exam was performed using dose reduction technique. CLINICAL HISTORY: headache- and left eye pain and swelling FINDINGS: There is age-appropriate atrophy. There is no mass effect or midline shift. There is no intracranial hemorrhage. There is no hydrocephalus. Periventricular low density is likely related to changes of chronic small vessel ischemia. The basilar cisterns are preserved. The posterior fossa is without acute abnormality. The soft tissues are without acute abnormality. There is no air-fluid level in the paranasal sinuses. No acute osseous abnormality is identified. IMPRESSION: No acute intracranial abnormality. Atrophy and changes suggesting chronic small vessel ischemia. Reviewed, Interpreted and Dictated by Skyla Langston MD Transcribed by Nevin Mijares Authenticated and [facility]
--- NOTE | 2022-08-26 07:59 | CT_ITS ---
FINAL REPORT TECHNIQUE: Thin section axial images were obtained through the orbits with contrast. This study was performed with techniques to keep radiation doses as low as reasonably achievable (ALARA). Individualized dose reduction techniques using automated exposure control or adjustment of mA and/or kV according to the patient's size were employed. CLINICAL HISTORY: left eye pain FINDINGS: The globes are intact. The extraocular muscles appear symmetric from right to left without asymmetric enlargement. There is no retro-orbital mass or abnormal attenuation. The periorbital soft tissues are without acute abnormality. No fluid collection is identified. There is no acute osseous abnormality of the orbits. IMPRESSION: No orbital mass or asymmetric periorbital soft tissue edema. Reviewed, Interpreted and Dictated by Skyla Langston MD Transcribed by Nevin Mijares Authenticated and [facility]
--- NOTE | 2022-08-26 07:59 | CT_ITS ---
FINAL REPORT TECHNIQUE: Axial imaging of the facial bones was obtained after the administration of contrast. Formatted images were also obtained and reviewed. This study was performed with techniques to keep radiation doses as low as reasonably achievable (ALARA). Individualized dose reduction techniques using automated exposure control or adjustment of mA and/or kV according to the patient's size were employed. CLINICAL HISTORY: headache and left eye pain and swelling FINDINGS: There is no acute facial fracture. Paranasal sinuses and mastoid air cells are clear. There are multiple missing teeth in the maxilla. The remaining teeth demonstrate multiple dental caries. Periapical lucency is seen surrounding the posterior right maxillary molar. Periapical abscess not excluded. The globes are intact. There is no retro-orbital inflammation. Periorbital soft tissues are symmetric from right to left. Included portions of the parotid glands are without acute abnormality. There is no focal area of inflammation identified within the soft tissues of the face. No fluid collection seen. IMPRESSION: No acute bony abnormality or enhancing fluid collection. Periapical lucency surrounding posterior right maxillary molar. Periapical abscess not excluded. Reviewed, Interpreted and Dictated by Skyla Langston MD Transcribed by Carol Bond Authenticated and [facility]
--- NOTE | 2022-08-26 08:02 | HMH.EDGENADL ---
Discharge Plan Disposition Patient Disposition: Home, Self-Care Condition: Good Prescriptions Prescriptions: New amoxicillin-pot clavulanate 875-125 mg tablet 1 tab PO BID Qty: 20 0RF No Action hydrocodone-acetaminophen 7.5-325 mg tablet 7.5 tab PO Q6H PRN carvedilol 12.5 mg tablet See Rx Instructions .ROUTE .COMPLEX Qty: 180 0RF Dose Instruction: TAKE 1 TABLET BY MOUTH TWICE DAILY FOR BLOOD PRESSURE Rx Instructions: TAKE 1 TABLET BY MOUTH TWICE DAILY FOR BLOOD PRESSURE clopidogrel 75 mg tablet See Rx Instructions .ROUTE .COMPLEX Qty: 90 1RF Dose Instruction: TAKE ONE TABLET BY MOUTH EVERY DAY FOR BLOOD THINNER Rx Instructions: TAKE ONE TABLET BY MOUTH EVERY DAY FOR BLOOD THINNER aspirin 81 mg tablet,delayed release (DR/EC) 81 mg PO DAILY Qty: 90 0RF cholecalciferol (vitamin D3) 25 mcg (1,000 unit) capsule 25 mcg PO DAILY Qty: 90 0RF levothyroxine 25 mcg capsule 25 mcg PO DAILY Qty: 90 0RF (DME) FreeStyle Mayuri 14 Day [place] Misc See Rx Instructions MISCELLANE .MEDSUPPLY Qty: 1 0RF Rx Instructions: As directed gabapentin 800 mg tablet 800 mg PO QID Qty: 120 1RF doxycycline monohydrate 100 mg capsule 100 mg PO BID pantoprazole 40 mg tablet,delayed release (DR/EC) See Rx Instructions .ROUTE .COMPLEX Qty: 90 2RF Dose Instruction: TAKE ONE TABLET BY MOUTH EVERY DAY FOR REFLUX/ACID REFLUX Rx Instructions: TAKE ONE TABLET BY MOUTH EVERY DAY FOR REFLUX/ACID REFLUX promethazine 25 mg tablet See Rx Instructions .ROUTE .COMPLEX Qty: 60 0RF Dose Instruction: TAKE 1 TABLET BY MOUTH THREE TIMES DAILY NEEDED NAUSEA AND VOMITING MAY CAUSE DROWSINESS Rx Instructions: TAKE 1 TABLET BY MOUTH THREE TIMES DAILY NEEDED NAUSEA AND VOMITING MAY CAUSE DROWSINESS glipizide 10 mg tablet extended release 24hr See Rx Instructions .ROUTE .COMPLEX Qty: 60 2RF Dose Instruction: TAKE 1 TABLET BY MOUTH TWICE DAILY Rx Instructions: TAKE 1 TABLET BY MOUTH TWICE DAILY cholecalciferol (vitamin D3) 1,250 mcg (50,000 unit) capsule 1,250 mcg PO WEEKLY Qty: 14 3RF Farxiga 5 mg tablet 5 mg PO DAILY Qty: 90 0RF Januvia 100 mg tablet 100 mg PO DAILY Qty: 90 0RF amlodipine 5 mg tablet See Rx Instructions .ROUTE .COMPLEX Qty: 90 0RF Dose Instruction: TAKE 1 TABLET BY MOUTH ONCE DAILY Rx Instructions: TAKE 1 TABLET BY MOUTH ONCE DAILY (DME) FreeStyle Mayuri 14 Day Sensor Kit See Rx Instructions .ROUTE .COMPLEX Qty: 1 4RF Dose Instruction: CHANGE EVERY 14 DAYS Rx Instructions: CHANGE EVERY 14 DAYS metformin 1,000 mg tablet See Rx Instructions .ROUTE .COMPLEX Qty: 180 0RF Dose Instruction: TAKE 1 TABLET BY MOUTH TWICE DAILY Rx Instructions: TAKE 1 TABLET BY MOUTH TWICE DAILY lisinopril 10 mg tablet See Rx Instructions .ROUTE .COMPLEX Qty: 90 0RF Dose Instruction: TAKE 1 TABLET BY MOUTH ONCE DAILY Rx Instructions: TAKE 1 TABLET BY MOUTH ONCE DAILY atorvastatin 40 mg tablet See Rx Instructions .ROUTE .COMPLEX Qty: 90 3RF Dose Instruction: TAKE 1 TABLET BY MOUTH ONCE DAILY Rx Instructions: TAKE 1 TABLET BY MOUTH ONCE DAILY clindamycin HCl 300 mg capsule 300 mg PO Q8H 7 Days Qty: 21 0RF Referrals Follow up/Referrals: Sanchez Osborne MD [Primary Care Provider] - See instructions Activity Restrictions/Add. Instructions Additional Instructions/Restrictions: Follow-up with the photo lab specialist as scheduled today. Clinical Impressions Clinical Impression: Cellulitis, periorbital Discharge ED Provider: Fredy Sim General Adult HPI General Chief complaint: Eye Problems Stated complaint: left eye pain, headache, no accident Time Seen by Provider: 08/26/22 07:52 Mode of Arrival: Ambulatory Source of Information: Patient Limitations: No Limitations Description of Symptoms (R
[2022-08-26 08:18] LABS: Basophils # 0.1 K/mm3 (0-0.2); Basophils % 1.2 % (0.1-2.0); Eosinophils # 0.5 K/mm3 (0.0-0.4); Eosinophils % 5.1 % (0.1-12.0); Hematocrit 46.5 % (42.0-52.0); Hemoglobin 15.2 g/dL (14.1-18.0); Lymphocytes # 2.8 K/mm3 (0.7-4.5); Lymphocytes % 27.8 % (10-50); Mean Corpuscular HGB Conc 32.6 g/dL (31.8-35.4); Mean Corpuscular Hemoglobin 29.4 pg (27.0-31.2); Mean Corpuscular Volume 90.2 fl (80-94); Mean Platelet Volume 7.7 fl (7.4-10.4); Monocytes # 0.5 K/mm3 (0.1-1.0); Monocytes % 5.1 % (1.7-9.3); Neutrophils # 6.1 K/mm3 (1.8-7.8); Neutrophils % 60.8 % (37.0-80.0); Platelet Count 336 K/mm3 (142-424); Red Blood Count 5.16 M/mm3 (4.60-6.20); Red Cell Distribution Width 14.9 % (11.5-17.5)
[2022-08-26 08:21] LABS: Chloride 103 mmol/L (98-107)
[2022-08-26 08:22] LABS: Potassium 4.2 mmoL/L (3.5-5.1); Sodium 137 mmol/L (136-145)
[2022-08-26 08:24] LABS: Blood Urea Nitrogen 12 mg/dl (9-20); Creatinine Clearance Estimated 115 mL/min (50-200); Estimated Glomerular Filt Rate 135 ml/min (>60); GFR (African American) 163 ML/MIN (>60)
[2022-08-26 08:25] LABS: Alanine Aminotransferase 24 U/L (12-78); Albumin Level 4.4 g/dl (3.5-5.0); Albumin/Globulin Ratio 1.2 (1.1-1.8); Alkaline Phosphatase 131 U/L (38-126); Anion Gap 9.2 mEq/L (5-15); Aspartate Amino Transferase 26 U/L (17-59); Bilirubin,Total 0.5 mg/dl (0.2-1.3); Calcium 9.2 mg/dl (8.4-10.2); Carbon Dioxide 29 mmol/L (22.0-30.0); Globulin 3.6 g/dL (1.3-3.2); Glucose 238 mg/dl (74-100)
[2022-08-26 08:26] LABS: Lactic Acid 1.4 mmol/L (0.7-2.1)
[2022-08-26 09:10] LABS: Erythrocyte Sedimentation Rate 14 mm/hr (0-20)
[2022-08-26 10:04] VITALS: BP 136/78; PULSE 67; O2SAT 97
--- NOTE | 2022-08-26 11:14 | PC.NURSE ---
placed call to [facility] aawaiting call back and they made him an appt for 215 today
[2022-08-26 11:30] VITALS: BP 131/74; PULSE 62; RESP 20; TEMP 36.3; O2SAT 98
--- NOTE | 2022-08-26 22:16 | PC.NURSE ---
patient notified of sandy that he left in ED. Patient will picker tender tomorrow when he comes to [facility] to picker tender his medicine
== END 2022-08-26 11:30 | disposition home or self-care (01) ==
PROVIDERS: Emergency Provider Emergency Medicine; PCP Emergency Medicine
DX: L03.213 Periorbital cellulitis (principal); I25.10 Atherosclerotic heart disease of native coronary artery without angina pectoris; E10.9 Type 1 diabetes mellitus without complications; Z95.1 Presence of aortocoronary bypass graft
CPT/HCPCS: 70450; 70481; 70487; 80053; 83605; 85025; 85651; 86140; 87040; 96374; 99285; Q9967

== ENCOUNTER 2022-09-22 01:15 | Emergency (ER) | payer MEDICARE, SELFPAY ==
[2022-09-22 01:17] VITALS: BP 190/110; PULSE 81; RESP 19; TEMP 36.8; O2SAT 98; BMI 35.9
--- NOTE | 2022-09-22 01:19 | CT_ITS ---
PROCEDURE INFORMATION: Exam: CT Head Without Contrast Exam date and time: 09/22/2022 1:40 AM Age: 67 years old Clinical indication: Stroke-like symptoms; Left facial droop; Additional info: Left sided facial weakness TECHNIQUE: Imaging protocol: Computed tomography of the head without contrast. Radiation optimization: All CT scans at this facility use at least one of these dose optimization techniques: automated exposure control; mA and/or kV adjustment per patient size (includes targeted exams where dose is matched to clinical indication); or iterative reconstruction. Other technique: STROKE PROTOCOL was implemented. REPORTING DATA: Count of CT and Cardiac NM exams in prior 12 months: This patient has received 3 known CTs and 0 known cardiac nuclear medicine studies in the 12 months prior to the current study. COMPARISON: CT HEAD/BRAIN WO CON 08/26/2022 8:46 AM FINDINGS: Brain: No acute infarct. No hemorrhage. Stable involutional changes of the brain. No mass effect. Cerebral ventricles: Stable ventricular size. No ventriculomegaly. Paranasal sinuses: Visualized sinuses are unremarkable. No fluid levels. Mastoid air cells: Visualized mastoid air cells are well aerated. Bones/joints: Unremarkable. No acute fracture. Soft tissues: Unremarkable. IMPRESSION: No acute intracranial abnormality. ASSESSMENT: ASPECTS ([place] Stroke Program Early CT Score) is 10.
--- NOTE | 2022-09-22 01:22 | HMH.EDGENADL ---
Discharge Plan Disposition Patient Disposition: Home, Self-Care Condition: Good Prescriptions Prescriptions: New acyclovir 400 mg tablet 400 mg PO QID 10 Days Qty: 40 0RF prednisone 20 mg tablet 40 mg PO DAILY 5 Days Qty: 10 0RF erythromycin 5 mg/gram (0.5 %) ointment 1 applic ophthalmic (eye) TID Qty: 3.5 0RF No Action hydrocodone-acetaminophen 7.5-325 mg tablet 7.5 tab PO Q6H PRN clopidogrel 75 mg tablet See Rx Instructions .ROUTE .COMPLEX Qty: 90 1RF Dose Instruction: TAKE ONE TABLET BY MOUTH EVERY DAY FOR BLOOD THINNER Rx Instructions: TAKE ONE TABLET BY MOUTH EVERY DAY FOR BLOOD THINNER gabapentin 800 mg tablet 800 mg PO QID Qty: 120 2RF aspirin 81 mg tablet,delayed release (DR/EC) 81 mg PO DAILY Qty: 90 0RF cholecalciferol (vitamin D3) 25 mcg (1,000 unit) capsule 25 mcg PO DAILY Qty: 90 0RF levothyroxine 25 mcg capsule 25 mcg PO DAILY Qty: 90 0RF (DME) FreeStyle Mayuri 14 Day [place] Misc See Rx Instructions MISCELLANE .MEDSUPPLY Qty: 1 0RF Rx Instructions: As directed pantoprazole 40 mg tablet,delayed release (DR/EC) See Rx Instructions .ROUTE .COMPLEX Qty: 90 2RF Dose Instruction: TAKE ONE TABLET BY MOUTH EVERY DAY FOR REFLUX/ACID REFLUX Rx Instructions: TAKE ONE TABLET BY MOUTH EVERY DAY FOR REFLUX/ACID REFLUX glipizide 10 mg tablet extended release 24hr See Rx Instructions .ROUTE .COMPLEX Qty: 60 2RF Dose Instruction: TAKE 1 TABLET BY MOUTH TWICE DAILY Rx Instructions: TAKE 1 TABLET BY MOUTH TWICE DAILY cholecalciferol (vitamin D3) 1,250 mcg (50,000 unit) capsule 1,250 mcg PO WEEKLY Qty: 14 3RF Farxiga 5 mg tablet 5 mg PO DAILY Qty: 90 0RF Januvia 100 mg tablet 100 mg PO DAILY Qty: 90 0RF metformin 1,000 mg tablet See Rx Instructions .ROUTE .COMPLEX Qty: 180 0RF Dose Instruction: TAKE 1 TABLET BY MOUTH TWICE DAILY Rx Instructions: TAKE 1 TABLET BY MOUTH TWICE DAILY lisinopril 10 mg tablet See Rx Instructions .ROUTE .COMPLEX Qty: 90 0RF Dose Instruction: TAKE 1 TABLET BY MOUTH ONCE DAILY Rx Instructions: TAKE 1 TABLET BY MOUTH ONCE DAILY atorvastatin 40 mg tablet See Rx Instructions .ROUTE .COMPLEX Qty: 90 3RF Dose Instruction: TAKE 1 TABLET BY MOUTH ONCE DAILY Rx Instructions: TAKE 1 TABLET BY MOUTH ONCE DAILY (DME) FreeStyle Mayuri 14 Day Sensor Kit See Rx Instructions .ROUTE .COMPLEX Qty: 1 3RF Dose Instruction: CHANGE EVERY 14 DAYS Rx Instructions: CHANGE EVERY 14 DAYS carvedilol 12.5 mg tablet See Rx Instructions .ROUTE .COMPLEX Qty: 180 0RF Dose Instruction: TAKE 1 TABLET BY MOUTH TWICE DAILY FOR BLOOD PRESSURE Rx Instructions: TAKE 1 TABLET BY MOUTH TWICE DAILY FOR BLOOD PRESSURE promethazine 25 mg tablet See Rx Instructions .ROUTE .COMPLEX Qty: 60 0RF Dose Instruction: TAKE 1 TABLET BY MOUTH THREE TIMES DAILY NEEDED FOR NAUSEA AND VOMITING Rx Instructions: TAKE 1 TABLET BY MOUTH THREE TIMES DAILY NEEDED FOR NAUSEA AND VOMITING amlodipine 5 mg tablet See Rx Instructions .ROUTE .COMPLEX Qty: 90 0RF Dose Instruction: TAKE 1 TABLET BY MOUTH ONCE DAILY Rx Instructions: TAKE 1 TABLET BY MOUTH ONCE DAILY Referrals Follow up/Referrals: Sanchez Osborne MD [Primary Care Provider] - See instructions Clinical Impressions Clinical Impression: Rice's palsy, Diabetes mellitus, Hypertension Instructions Patient Instructions: Rice Palsy Print Language Print Language: Greenlandic Discharge ED Provider: Bowen Giles General Adult HPI General Chief complaint: Neuro Symptoms/Deficit Stated complaint: L facial droop Time Seen by Provider: 09/22/22 01:57 History of Present Illness HPI narrative: Patient presents to the emergency department left-sided facial weakness which he noticed Friday morning when he woke up. The patie
[2022-09-22 01:30] VITALS: BMI 35.9
[2022-09-22 01:31] VITALS: BP 145/77; PULSE 81; RESP 16; O2SAT 95
[2022-09-22 01:57] VITALS: BP 140/70; PULSE 78; RESP 18; TEMP 36.6; O2SAT 99
== END 2022-09-22 02:13 | disposition home or self-care (01) ==
PROVIDERS: Emergency Provider Emergency Medicine; PCP Emergency Medicine
DX: G51.0 Bell's palsy (principal)
CPT/HCPCS: 70450; 96374; 99284

== ENCOUNTER 2022-09-29 14:59 | Emergency (ER) | payer MEDICARE, SELFPAY ==
[2022-09-29 15:09] VITALS: BP 182/89; PULSE 83; RESP 16; TEMP 36.7; O2SAT 98; BMI 35.9
[2022-09-29 15:15] VITALS: BP 182/89; PULSE 74; O2SAT 96
--- NOTE | 2022-09-29 15:24 | HMH.EDGENADL ---
Discharge Plan Disposition Patient Disposition: Home, Self-Care Condition: Fair Prescriptions Prescriptions: New duloxetine 30 mg capsule,delayed release(DR/EC) 30 mg PO DAILY Qty: 30 0RF No Action hydrocodone-acetaminophen 7.5-325 mg tablet 7.5 tab PO Q6H PRN clopidogrel 75 mg tablet See Rx Instructions .ROUTE .COMPLEX Qty: 90 1RF Dose Instruction: TAKE ONE TABLET BY MOUTH EVERY DAY FOR BLOOD THINNER Rx Instructions: TAKE ONE TABLET BY MOUTH EVERY DAY FOR BLOOD THINNER gabapentin 800 mg tablet 800 mg PO QID Qty: 120 2RF aspirin 81 mg tablet,delayed release (DR/EC) 81 mg PO DAILY Qty: 90 0RF cholecalciferol (vitamin D3) 25 mcg (1,000 unit) capsule 25 mcg PO DAILY Qty: 90 0RF levothyroxine 25 mcg capsule 25 mcg PO DAILY Qty: 90 0RF (DME) FreeStyle Mayuri 14 Day [place] Mis See Rx Instructions MISCELLANE .MEDSUPPLY Qty: 1 0RF Rx Instructions: As directed pantoprazole 40 mg tablet,delayed release (DR/EC) See Rx Instructions .ROUTE .COMPLEX Qty: 90 2RF Dose Instruction: TAKE ONE TABLET BY MOUTH EVERY DAY FOR REFLUX/ACID REFLUX Rx Instructions: TAKE ONE TABLET BY MOUTH EVERY DAY FOR REFLUX/ACID REFLUX glipizide 10 mg tablet extended release 24hr See Rx Instructions .ROUTE .COMPLEX Qty: 60 2RF Dose Instruction: TAKE 1 TABLET BY MOUTH TWICE DAILY Rx Instructions: TAKE 1 TABLET BY MOUTH TWICE DAILY cholecalciferol (vitamin D3) 1,250 mcg (50,000 unit) capsule 1,250 mcg PO WEEKLY Qty: 14 3RF Farxiga 5 mg tablet 5 mg PO DAILY Qty: 90 0RF Januvia 100 mg tablet 100 mg PO DAILY Qty: 90 0RF metformin 1,000 mg tablet See Rx Instructions .ROUTE .COMPLEX Qty: 180 0RF Dose Instruction: TAKE 1 TABLET BY MOUTH TWICE DAILY Rx Instructions: TAKE 1 TABLET BY MOUTH TWICE DAILY lisinopril 10 mg tablet See Rx Instructions .ROUTE .COMPLEX Qty: 90 0RF Dose Instruction: TAKE 1 TABLET BY MOUTH ONCE DAILY Rx Instructions: TAKE 1 TABLET BY MOUTH ONCE DAILY atorvastatin 40 mg tablet See Rx Instructions .ROUTE .COMPLEX Qty: 90 3RF Dose Instruction: TAKE 1 TABLET BY MOUTH ONCE DAILY Rx Instructions: TAKE 1 TABLET BY MOUTH ONCE DAILY (DME) FreeStyle Mayuri 14 Day Sensor Kit See Rx Instructions .ROUTE .COMPLEX Qty: 1 3RF Dose Instruction: CHANGE EVERY 14 DAYS Rx Instructions: CHANGE EVERY 14 DAYS carvedilol 12.5 mg tablet See Rx Instructions .ROUTE .COMPLEX Qty: 180 0RF Dose Instruction: TAKE 1 TABLET BY MOUTH TWICE DAILY FOR BLOOD PRESSURE Rx Instructions: TAKE 1 TABLET BY MOUTH TWICE DAILY FOR BLOOD PRESSURE promethazine 25 mg tablet See Rx Instructions .ROUTE .COMPLEX Qty: 60 0RF Dose Instruction: TAKE 1 TABLET BY MOUTH THREE TIMES DAILY NEEDED FOR NAUSEA AND VOMITING Rx Instructions: TAKE 1 TABLET BY MOUTH THREE TIMES DAILY NEEDED FOR NAUSEA AND VOMITING amlodipine 5 mg tablet See Rx Instructions .ROUTE .COMPLEX Qty: 90 0RF Dose Instruction: TAKE 1 TABLET BY MOUTH ONCE DAILY Rx Instructions: TAKE 1 TABLET BY MOUTH ONCE DAILY acyclovir 400 mg tablet 400 mg PO QID 10 Days Qty: 40 0RF prednisone 20 mg tablet 40 mg PO DAILY 5 Days Qty: 10 0RF erythromycin 5 mg/gram (0.5 %) ointment 1 applic ophthalmic (eye) TID Qty: 3.5 0RF Referrals Follow up/Referrals: Sanchez Osborne MD [Primary Care Provider] - See instructions Clinical Impressions 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
[2022-09-29 15:30] VITALS: BP 200/97; PULSE 78; O2SAT 96
--- NOTE | 2022-09-29 15:52 | PC.NURSE ---
paging pharmacy to check drug interactions paulina campa
--- NOTE | 2022-09-29 15:54 | PC.NURSE ---
easton with pharmacy states symbalta does not interact with pt's existing rx
[2022-09-29 16:00] VITALS: BP 174/83; PULSE 67; O2SAT 95
[2022-09-29 16:04] VITALS: BP 174/83; PULSE 95; RESP 16; TEMP 36.7
== END 2022-09-29 16:05 | disposition home or self-care (01) ==
PROVIDERS: Emergency Provider Student in an Organized Health Care Education/Training Program; PCP Emergency Medicine
DX: B02.21 Postherpetic geniculate ganglionitis (principal)
CPT/HCPCS: 99283; 99284

== ENCOUNTER → 2022-12-13 12:51 | Outpatient (CLI) | payer MEDICARE, SELFPAY ==
[2022-12-13 13:32] LABS: Microalbumin/Creatinine Ratio 28.3
[2022-12-13 13:33] LABS: Creatinine,Urine Random 118 mg/dL (Not Estab.)
== END ==
PROVIDERS: PCP Emergency Medicine; Visit Provider Emergency Medicine
DX: E10.9 Type 1 diabetes mellitus without complications (principal); Z79.84 Long term (current) use of oral hypoglycemic drugs
CPT/HCPCS: 82043; 82570

== ENCOUNTER 2023-04-28 13:53 | Emergency (ER) | payer MEDICARE, SELFPAY ==
[2023-04-28 13:54] VITALS: BP 164/84; PULSE 92; RESP 18; TEMP 36.7; O2SAT 95; BMI 33.7
--- NOTE | 2023-04-28 14:25 | CT_ITS ---
FINAL REPORT TECHNIQUE: Axial imaging of the right hip was obtained after the intravenous administration of contrast. Reformatted images were also obtained and reviewed. This study was performed with techniques to keep radiation doses as low as reasonably achievable (ALARA). Individualized dose reduction techniques using automated exposure control or adjustment of mA and/or kV according to the patient's size were employed. CLINICAL HISTORY: swelling, incision from 2014 draining pus FINDINGS: There is a partially imaged, 6 cm abdominal aortic aneurysm. There are postoperative changes to the right acetabulum. There are moderate to severe degenerative changes of the right hip. There is a loose body in the joint measuring 6 mm. Musculature is intact. A 38 mm area of abnormal attenuation is is seen in the right lateral hip subcutaneous tissues which may represent inflammatory change or fluid collection. There is overlying skin thickening. IMPRESSION: 38 mm area of abnormal attenuation in the right lateral hip subcutaneous tissues which may represent inflammatory change or fluid collection with overlying skin thickening. 6 mm loose body in the joint. Partially imaged, 6 cm abdominal aortic aneurysm. Reviewed, Interpreted and Dictated by Fili Osorio III, MD Transcribed by Carol Bond Authenticated and [facility]
[2023-04-28 15:07] LABS: Basophils # 0.1 K/mm3 (0-0.2); Basophils % 0.6 % (0.1-2.0); Eosinophils # 0.2 K/mm3 (0.0-0.4); Eosinophils % 2.1 % (0.1-12.0); Hematocrit 42.8 % (42.0-52.0); Hemoglobin 14.1 g/dL (14.1-18.0); Lymphocytes # 3.3 K/mm3 (0.7-4.5); Lymphocytes % 32.8 % (10-50); Mean Corpuscular HGB Conc 32.9 g/dL (31.8-35.4); Mean Corpuscular Hemoglobin 29.6 pg (27.0-31.2); Mean Platelet Volume 8.1 fl (7.4-10.4); Monocytes # 0.6 K/mm3 (0.1-1.0); Monocytes % 5.7 % (1.7-9.3); Neutrophils % 58.7 % (37.0-80.0); Platelet Count 281 K/mm3 (142-424); Red Blood Count 4.75 M/mm3 (4.60-6.20); Red Cell Distribution Width 14.2 % (11.5-17.5); White Blood Count 10.2 K/mm3 (4.8-10.8)
[2023-04-28 15:08] LABS: Chloride 105 mmol/L (98-107); Sodium 139 mmol/L (136-145)
[2023-04-28 15:11] LABS: Alanine Aminotransferase 25 U/L (12-78); Albumin Level 3.9 g/dl (3.5-5.0); Albumin/Globulin Ratio 1.3 (1.1-1.8); Alkaline Phosphatase 92 U/L (38-126); Aspartate Amino Transferase 33 U/L (17-59); Bilirubin,Total 0.2 mg/dl (0.2-1.3); Blood Urea Nitrogen 10 mg/dl (9-20); Carbon Dioxide 27 mmol/L (22.0-30.0); Creatinine Clearance Estimated 110 mL/min (50-200); Estimated Glomerular Filt Rate 166 ml/min (>60); GFR (African American) 201 ML/MIN (>60); Globulin 3.1 g/dL (1.3-3.2)
[2023-04-28 15:12] LABS: Calcium 8.8 mg/dl (8.4-10.2); Glucose 186 mg/dl (74-100)
--- NOTE | 2023-04-28 15:15 | HMH.EDGENADL ---
Discharge Plan Disposition Patient Disposition: Still a Patient Condition: Good Prescriptions Prescriptions: New sulfamethoxazole-trimethoprim [Bactrim DS] 800-160 mg tablet 1 tab PO BID 10 Days Qty: 20 0RF cephalexin 500 mg capsule 500 mg PO QID 10 Days Qty: 40 0RF No Action hydrocodone-acetaminophen 7.5-325 mg tablet 7.5 tab PO Q6H PRN Ozempic 0.25 mg or 0.5 mg (2 mg/3 mL) pen injector 0.25 mg SQ WEEKLY Qty: 3 2RF Rx Instructions: 0.25mg weekly for 4 weeks; then 0.5mg weekly gabapentin 800 mg tablet 800 mg PO QID Qty: 120 2RF aspirin 81 mg tablet,delayed release (DR/EC) 81 mg PO DAILY Qty: 90 0RF cholecalciferol (vitamin D3) 25 mcg (1,000 unit) capsule 25 mcg PO DAILY Qty: 90 0RF (DME) FreeStyle Mayuri 14 Day [place] Misc See Rx Instructions MISCELLANE .MEDSUPPLY Qty: 1 0RF Rx Instructions: As directed cholecalciferol (vitamin D3) 1,250 mcg (50,000 unit) capsule 1,250 mcg PO WEEKLY Qty: 14 3RF atorvastatin 40 mg tablet See Rx Instructions .ROUTE .COMPLEX Qty: 90 3RF Dose Instruction: TAKE 1 TABLET BY MOUTH ONCE DAILY Rx Instructions: TAKE 1 TABLET BY MOUTH ONCE DAILY Farxiga 10 mg tablet 10 mg PO DAILY Qty: 90 0RF glipizide 10 mg tablet extended release 24hr See Rx Instructions .ROUTE .COMPLEX 90 Days Qty: 60 1RF Dose Instruction: TAKE 1 TABLET BY MOUTH TWICE DAILY Rx Instructions: TAKE 1 TABLET BY MOUTH TWICE DAILY nystatin 100,000 unit/mL suspension 5 ml PO TID Qty: 480 0RF Rx Instructions: swish and swallow pantoprazole 40 mg tablet,delayed release (DR/EC) See Rx Instructions .ROUTE .COMPLEX Qty: 90 1RF Dose Instruction: TAKE ONE TABLET BY MOUTH EVERY DAY FOR REFLUX/ACID REFLUX Rx Instructions: TAKE ONE TABLET BY MOUTH EVERY DAY FOR REFLUX/ACID REFLUX Januvia 100 mg tablet See Rx Instructions .ROUTE .COMPLEX Qty: 90 0RF Dose Instruction: TAKE 1 TABLET BY MOUTH ONCE DAILY Rx Instructions: TAKE 1 TABLET BY MOUTH ONCE DAILY carvedilol 12.5 mg tablet See Rx Instructions .ROUTE .COMPLEX Qty: 180 0RF Dose Instruction: TAKE 1 TABLET BY MOUTH TWICE DAILY FOR BLOOD PRESSURE Rx Instructions: TAKE 1 TABLET BY MOUTH TWICE DAILY FOR BLOOD PRESSURE amlodipine 5 mg tablet See Rx Instructions .ROUTE .COMPLEX Qty: 90 0RF Dose Instruction: TAKE 1 TABLET BY MOUTH ONCE DAILY Rx Instructions: TAKE 1 TABLET BY MOUTH ONCE DAILY metformin 1,000 mg tablet See Rx Instructions .ROUTE .COMPLEX Qty: 180 0RF Dose Instruction: TAKE 1 TABLET BY MOUTH TWICE DAILY Rx Instructions: TAKE 1 TABLET BY MOUTH TWICE DAILY clopidogrel 75 mg tablet See Rx Instructions .ROUTE .COMPLEX Qty: 90 0RF Dose Instruction: TAKE ONE TABLET BY MOUTH EVERY DAY FOR BLOOD THINNER Rx Instructions: TAKE ONE TABLET BY MOUTH EVERY DAY FOR BLOOD THINNER (DME) FreeStyle Mayuri 14 Day Sensor Kit See Rx Instructions .ROUTE .COMPLEX Qty: 1 2RF Dose Instruction: CHANGE EVERY 14 DAYS Rx Instructions: CHANGE EVERY 14 DAYS promethazine 25 mg tablet See Rx Instructions .ROUTE .COMPLEX Qty: 60 0RF Dose Instruction: TAKE 1 TABLET BY MOUTH THREE TIMES DAILY NEEDED FOR NAUSEA AND VOMITING Rx Instructions: TAKE 1 TABLET BY MOUTH THREE TIMES DAILY NEEDED FOR NAUSEA AND VOMITING lisinopril 10 mg tablet See Rx Instructions .ROUTE .COMPLEX Qty: 90 0RF Dose Instruction: TAKE 1 TABLET BY MOUTH ONCE DAILY Rx Instructions: TAKE 1 TABLET BY MOUTH ONCE DAILY Referrals Follow up/Referrals: Sanchez Osborne MD [Primary Care Provider] - See instructions Activity Restrictions/Add. Instructions Additional Instructions/Restrictions: After discussing the case with our orthopedic surgeon and hospital medicine doctor here we discussed the case further with [facility] orthopedic surgery who would l
[2023-04-28 15:17] LABS: C-Reactive Protein 14.8 mg/L (0-4)
[2023-04-28 15:19] VITALS: BP 154/81; PULSE 70; O2SAT 94
[2023-04-28 15:31] LABS: Erythrocyte Sedimentation Rate 44 mm/hr (0-20)
--- NOTE | 2023-04-28 16:21 | PC.NURSE ---
Called for Dr Renee to consult about this pt with infected Hardware in his Pelvis. while on the phone connected with the Hospitalist
--- NOTE | 2023-04-28 16:22 | PC.NURSE ---
first blood cultures sent to lab
--- NOTE | 2023-04-28 16:24 | PC.NURSE ---
Radiology has been called to power share images
--- NOTE | 2023-04-28 17:03 | PC.NURSE ---
Dr. Renee speaking with [facility]
[2023-04-28 17:16] VITALS: BP 170/87; PULSE 70; RESP 18; TEMP 36.7; O2SAT 94
--- NOTE | 2023-05-01 19:13 | PC.NURSE ---
I s/w Dr. Lopez regarding pt's preliminary (1) positive blood culutre on the aerobic bottle. Pt was d/c on Bactrim and Keflex and was to follow up with [facility] outpt. I attempted to call pt's home phone and due to network difficulties your call can not be completed . I called the son, Evan, and this phone is not in service . I called the brother, Pan, and no answer or option to leave a voicemail. Pt did see Dr. Osborne in the office on 04/29 and Shawn Wong on 04/[address] Lopez notified of this.
--- NOTE | 2023-05-08 18:40 | PC.NURSE ---
BLOOD CULTURE RESULTS ON WORKLIST- NOTIFIED DR. WARD- PER PREVIOUS NURSE NOT PT D/C FROM [facility] ON BACTRIM. ID/SENSITIVITY FOR BLOOD CULTURE SHOW SENSITIVITY TO BACTRIM. DR. WARD STATES NO FURTHER ACTION NEEDED.
== END 2023-04-28 17:18 | disposition still patient (30) ==
PROVIDERS: Emergency Provider Emergency Medicine; PCP Emergency Medicine
DX: S71.001A Unspecified open wound, right hip, initial encounter (principal); T84.59XA Infection and inflammatory reaction due to other internal joint prosthesis, initial encounter; B95.7 Other staphylococcus as the cause of diseases classified elsewhere; E11.9 Type 2 diabetes mellitus without complications; E66.9 Obesity, unspecified; I25.10 Atherosclerotic heart disease of native coronary artery without angina pectoris; F17.210 Nicotine dependence, cigarettes, uncomplicated; Z95.5 Presence of coronary angioplasty implant and graft; Z79.84 Long term (current) use of oral hypoglycemic drugs; X58.XXXA Exposure to other specified factors, initial encounter; I11.9 Hypertensive heart disease without heart failure
CPT/HCPCS: 73701; 80053; 85025; 85651; 86140; 87040; 87070; 87205; 96365; 96366; 99285; J2543; Q9967

== ENCOUNTER 2023-08-01 13:19 | Emergency (ER) | payer MEDICARE, SELFPAY ==
[2023-08-01 14:10] VITALS: BP 125/70; PULSE 82; RESP 19; TEMP 36.8; O2SAT 98; BMI 30.9
--- NOTE | 2023-08-01 14:28 | ED_ITS ---
Discharge Plan Disposition Patient Disposition: Home, Self-Care Condition: Good Prescriptions Prescriptions: No Action hydrocodone-acetaminophen 7.5-325 mg tablet 7.5 tab PO Q6H PRN lisinopril 10 mg tablet 20 mg PO DAILY daptomycin 19 ml IV DAILY insulin glargine [Lantus Solostar U-100 Insulin] 20 unit SQ HS aspirin 81 mg tablet,delayed release (DR/EC) 81 mg PO DAILY Qty: 90 0RF (DME) FreeStyle Mayuri 14 Day [place] Mis See Rx Instructions MISCELLANE .MEDSUPPLY Qty: 1 0RF Rx Instructions: As directed atorvastatin 40 mg tablet See Rx Instructions .ROUTE .COMPLEX Qty: 90 3RF Dose Instruction: TAKE 1 TABLET BY MOUTH ONCE DAILY Rx Instructions: TAKE 1 TABLET BY MOUTH ONCE DAILY nystatin 100,000 unit/mL suspension 5 ml PO TID Qty: 480 0RF Rx Instructions: swish and swallow pantoprazole 40 mg tablet,delayed release (DR/EC) See Rx Instructions .ROUTE .COMPLEX Qty: 90 1RF Dose Instruction: TAKE ONE TABLET BY MOUTH EVERY DAY FOR REFLUX/ACID REFLUX Rx Instructions: TAKE ONE TABLET BY MOUTH EVERY DAY FOR REFLUX/ACID REFLUX Januvia 100 mg tablet See Rx Instructions .ROUTE .COMPLEX Qty: 90 0RF Dose Instruction: TAKE 1 TABLET BY MOUTH ONCE DAILY Rx Instructions: TAKE 1 TABLET BY MOUTH ONCE DAILY carvedilol 12.5 mg tablet See Rx Instructions .ROUTE .COMPLEX Qty: 180 0RF Dose Instruction: TAKE 1 TABLET BY MOUTH TWICE DAILY FOR BLOOD PRESSURE Rx Instructions: TAKE 1 TABLET BY MOUTH TWICE DAILY FOR BLOOD PRESSURE amlodipine 5 mg tablet See Rx Instructions .ROUTE .COMPLEX Qty: 90 0RF Dose Instruction: TAKE 1 TABLET BY MOUTH ONCE DAILY Rx Instructions: TAKE 1 TABLET BY MOUTH ONCE DAILY metformin 1,000 mg tablet See Rx Instructions .ROUTE .COMPLEX Qty: 180 0RF Dose Instruction: TAKE 1 TABLET BY MOUTH TWICE DAILY Rx Instructions: TAKE 1 TABLET BY MOUTH TWICE DAILY clopidogrel 75 mg tablet See Rx Instructions .ROUTE .COMPLEX Qty: 90 0RF Dose Instruction: TAKE ONE TABLET BY MOUTH EVERY DAY FOR BLOOD THINNER Rx Instructions: TAKE ONE TABLET BY MOUTH EVERY DAY FOR BLOOD THINNER (DME) FreeStyle Mayuri 14 Day Sensor Kit See Rx Instructions .ROUTE .COMPLEX Qty: 2 5RF Dose Instruction: CHANGE EVERY 14 DAYS Rx Instructions: CHANGE EVERY 14 DAYS gabapentin 800 mg tablet 800 mg PO QID Qty: 120 2RF promethazine 25 mg tablet See Rx Instructions .ROUTE .COMPLEX Qty: 40 0RF Dose Instruction: TAKE 1 TABLET BY MOUTH THREE TIMES DAILY NEEDED FOR NAUSEA AND VOMITING Rx Instructions: TAKE 1 TABLET BY MOUTH THREE TIMES DAILY NEEDED FOR NAUSEA AND VOMITING Paxlovid 300 mg (150 mg x 2)-100 mg tablets,dose pack See Rx Instructions PO .COMPLEX Qty: 30 0RF Rx Instructions: take TWO 150 mg tablets of nirmatrelvir with ONE 100 mg tablet of ritonavir twice daily for 5 days PO hydrocortisone [Anusol-HC] 2.5 % cream with perineal applicator 1 applic IN QD-BID PRN (Reason: hemorrhoids) Qty: 30 2RF bisacodyl [Dulcolax (bisacodyl)] 10 mg suppository 10 mg IN DAILY PRN (Reason: constipation) Qty: 12 2RF Referrals Follow up/Referrals: Rudy Desouza DO [Primary Care Provider] - See instructions Clinical Impressions Clinical Impression: Patient left care setting after treatment was declined Constipation Qualifiers: Constipation type: unspecified constipation type Qualified Code(s): K59.00 - Constipation, unspecified Discharge ED Provider: Stephanie Ortiz [facility] General Stated complaint: possible bowl issues Mode of Arrival: Ambulatory Source of Information: Patient Limitations: No Limitations Time Seen by Provider: 08/01/23 14:28 Description of Symptoms (Recalled from Triage Doc. by RN): PATIENT C/O NO BOWEL MOVEMENT X 2 DAYS HEENT Symptoms (Recalled from RN notes): No Resp Symptoms (Recalled from RN notes): No Skin Symptoms (Recalled from RN notes): No MS Symptoms (Recalled from RN notes): No Functional Status (Recalled from RN notes): WNL History of Present Illness Provider Complaint: Patient states that he had hip surgery in Mar and has been having bowel issues/constipation since States that he had a small bowel movement a couple days ago States that he took some Mag citrate this morning and his belly is rumbling and had small liquid bowel movement after arrival but not had a normal bowel movement since he had a small one 2 days ago States that he thinks he has a bowel issue or something going on Denies abdominal pain Related Data Home Medications Medication Instructions Recorded Confirmed hydrocodone 7.5 mg-acetaminophen 7.5 tab PO Q6H PRN 04/10/22 05/29/23 325 mg tablet daptomycin 19 ml IV DAILY 05/29/23 05/29/23 insulin glargine [Lantus Solostar 20 unit SQ HS 05/29/23 05/29/23 U-100 Insulin] lisinopril 10 mg tablet 20 mg PO DAILY 05/29/23 05/29/23 Previous Rx's Medication Instructions Recorded aspirin 81 mg tablet,delayed 81 mg PO DAILY Blood thinner #90 05/28/21 release tabs flash glucose scanning reader #1 ea 08/15/21 (FreeStyle Mayuri 14 Day [place]) nystatin 100,000 unit/mL oral 5 ml PO TID thrush #480 mL 02/13/23 suspension pantoprazole 40 mg tablet,delayed See Rx Instructions .Route 02/14/23 release .COMPLEX #90 tabs carvedilol 12.5 mg tablet See Rx Instructions .Route 02/21/23 .COMPLEX #180 tabs sitagliptin phosphate 100 mg See Rx Instructions .Route 02/21/23 tablet (Januvia) .COMPLEX #90 tabs amlodipine 5 mg tablet See Rx Instructions .Route 03/07/23 .COMPLEX #90 tabs metformin 1,000 mg tablet See Rx Instructions .Route 03/07/23 .COMPLEX #180 tabs clopidogrel 75 mg tablet See Rx Instructions .Route 03/25/23 .COMPLEX #90 tabs atorvastatin 40 mg tablet See Rx Instructions .Route 04/29/23 .COMPLEX #90 tabs flash glucose sensor (FreeStyle #2 ea 05/09/23 Mayuri 14 Day Sensor kit) gabapentin 800 mg tablet 800 mg PO QID Pain #120 tabs 06/24/23 promethazine 25 mg tablet See Rx Instructions .Route 07/10/23 .COMPLEX #40 tabs nirmatrelvir 300 mg (150 mg See Rx Instructions PO .COMPLEX 07/16/23 x2)-ritonavir 100 mg tablet,dose Covid #30 tabs pack (Paxlovid) bisacodyl 10 mg rectal suppository 10 mg IN DAILY PRN constipation 07/31/23 (Dulcolax (bisacodyl)) #12 ea hydrocortisone 2.5 % topical cream 1 applic IN QD-BID PRN hemorrhoids 07/31/23 with perineal applicator #30 grams (Anusol-HC) Allergies Allergy/AdvReac Type Severity Reaction Status Date / Time No Known Allergies Allergy Verified 05/29/23 13:24 Worker's Comp Is this a Worker's Comp case?: No [facility] Disclaimer: The information contained in this section may have been updated after the patient was seen, as this information can be updated by other users. Medical History CAD (coronary artery disease) Diabetes 1.5, managed as type 1 Dyspnea Encounter for pre-operative cardiovascular clearance Surgical History Hx of CABG Social History Smoking Status: Current every day smoker tobacco type: cigarettes packs per day: 1 second hand exposure: No alcohol intake: never substance use type: denies use current occupational status: disabled Travel in the last 8 weeks: None household members: family housing: house current occupational exposures/hazards: No caffeine: Yes ROS Obtained: Yes All systems reviewed & no additional complaints except as documented and Yes Systems reviewed as appropriate & no additional complaints except as documented Constitutional Constitutional: Reports system reviewed and no additional complaints, except as documented, Reports as per HPI and Denies fever(s) Cardiovascular Cardiovascular: Reports system reviewed and no additional complaints, except as documented and Reports as per HPI Respiratory Respiratory: Reports system reviewed and no additional complaints, except as documented and Reports as per HPI Gastrointestinal Gastrointestingal: Reports system reviewed and no additional complaints, except as documented, as per HPI and constipation (on and off since hip surgery in Mar); Denies abdominal pain Musculoskeletal Musculoskeletal: Reports system reviewed and no additional complaints, except as documented and Reports as per HPI Physical Exam General General appearance: alert and in no apparent distress ENT ENT exam: Present mucous membranes moist Respiratory Respiratory exam: Present normal lung sounds bilaterally; Absent respiratory distress or wheezes Cardiovascular Cardiovascular exam: Present regular rate, normal rhythm and normal heart sounds Abdominal Exam Abdominal exam: Present soft and hyperactive bowel sounds; Absent distention, tenderness, guarding or rebound Neurological Exam Neurological exam: Present alert, oriented X3 and normal gait Medical Decision Making Paresh Inquiry Pt receiving controlled substance: No Paresh was queried for this patient: No Vital Signs: 08/01/23 14:10 Temperature 98.2 F Temperature Source Oral Pulse Rate [Left Brachial] 82 Respiratory Rate 19 Blood Pressure [Left Arm] 125/70 Blood Pressure Mean [Left Arm] 88 Blood Pressure Source [Left Arm] Automatic Cuff Blood Pressure Position [Left Arm] Sitting 02 Sat by Pulse Oximetry 98 Oxygen Delivery Method Room Air Medical Decision Narrative: Disucussed with patient and recommended KUB to observe for constipation patient states that he took magneisum citrate this morning and just now had a small bowel movement that was liquid, however during exam patient states that he has to go to the bathroom again and after coming out of the bathroom from having second bowel movement since arrival to the [facility], told nurse that he was leaving didnt want KUB and would follow up with his family doctor Dr Desouza if symptoms continued or worsened and left the [facility]
--- NOTE | 2023-08-01 14:28 | PC.NURSE ---
PATIENT OFFERED KUB BY PROVIDER, PATIENT DECLINED. HE STATES HE TOOK MAG [employer] AND HAS HAD 2 BOWEL MOVEMENTS SINCE BEING IN [facility]. PATIENT LEFT AT THIS TIME, STATING HE WILL FOLLOW UP WITH HIS PCP
[2023-08-01 14:30] VITALS: BP 125/70; PULSE 82; RESP 19; TEMP 36.8; O2SAT 98
== END 2023-08-01 14:32 | disposition home or self-care (01) ==
LOC: UTC 13:22
PROVIDERS: Emergency Provider Nurse Practitioner; PCP Internal Medicine
DX: K59.00 Constipation, unspecified (principal)
CPT/HCPCS: 99203; 99212; G0463

== ENCOUNTER 2023-08-04 11:43 | Emergency (ER) | payer MEDICARE, SELFPAY ==
[2023-08-04 11:56] VITALS: BP 155/80; PULSE 81; RESP 18; TEMP 36.7; O2SAT 98; BMI 31.2
--- NOTE | 2023-08-04 12:26 | CT_ITS ---
FINAL REPORT CLINICAL HISTORY: abd distension, no BM x2 d COMPARISON: 07/28/2021 FINDINGS: Axial CT images of the abdomen and pelvis were obtained without intravenous contrast. Coronal and sagittal reformatted images were also obtained.This study was performed with techniques to keep radiation doses as low as reasonably achievable (ALARA). Individualized dose reduction techniques using automated exposure control or adjustment of mA and/or kV according to the patient's size were employed. Abdomen:The lung bases are clear. There is no evidence of renal stone or hydronephrosis.The liver, spleen and pancreas have an unremarkable, unenhanced appearance. Gallstones are present in the gallbladder. No mass or adenopathy is seen. No inflammatory process is identified. There is a 60 mm in diameter abdominal aortic aneurysm, infrarenal, which measured 55 mm on the prior exam of June 2021. Pelvis: Images of the pelvis reveal a normal-appearing appendix. No mass or abnormal fluid collection is identified. There is severe degenerative change of the right hip present. IMPRESSION: 60 mm abdominal aortic aneurysm, infrarenal, was 55 mm in June 2021. Gallstones are once again identified in the gallbladder. Reviewed, Interpreted and Dictated by Fili Osorio III, MD Transcribed by Inga Webb Authenticated and [facility]
--- NOTE | 2023-08-04 12:43 | HMH.EDGENADL ---
Discharge Plan Disposition Patient Disposition: Home, Self-Care Condition: Good Prescriptions Prescriptions: New polyethylene glycol 3350 [Miralax] 17 gram/dose powder 17 g PO DAILY Qty: 510 0RF sennosides [senna] 8.6 mg tablet 8.6 mg PO DAILY Qty: 30 0RF No Action hydrocodone-acetaminophen 7.5-325 mg tablet 7.5 tab PO Q6H PRN daptomycin 19 ml IV DAILY insulin glargine [Lantus Solostar U-100 Insulin] 20 unit SQ HS aspirin 81 mg tablet,delayed release (DR/EC) 81 mg PO DAILY Qty: 90 0RF (DME) FreeStyle Mayuri 14 Day [place] Mis See Rx Instructions MISCELLANE .MEDSUPPLY Qty: 1 0RF Rx Instructions: As directed atorvastatin 40 mg tablet See Rx Instructions .ROUTE .COMPLEX Qty: 90 3RF Dose Instruction: TAKE 1 TABLET BY MOUTH ONCE DAILY Rx Instructions: TAKE 1 TABLET BY MOUTH ONCE DAILY nystatin 100,000 unit/mL suspension 5 ml PO TID Qty: 480 0RF Rx Instructions: swish and swallow pantoprazole 40 mg tablet,delayed release (DR/EC) See Rx Instructions .ROUTE .COMPLEX Qty: 90 1RF Dose Instruction: TAKE ONE TABLET BY MOUTH EVERY DAY FOR REFLUX/ACID REFLUX Rx Instructions: TAKE ONE TABLET BY MOUTH EVERY DAY FOR REFLUX/ACID REFLUX Januvia 100 mg tablet See Rx Instructions .ROUTE .COMPLEX Qty: 90 0RF Dose Instruction: TAKE 1 TABLET BY MOUTH ONCE DAILY Rx Instructions: TAKE 1 TABLET BY MOUTH ONCE DAILY carvedilol 12.5 mg tablet See Rx Instructions .ROUTE .COMPLEX Qty: 180 0RF Dose Instruction: TAKE 1 TABLET BY MOUTH TWICE DAILY FOR BLOOD PRESSURE Rx Instructions: TAKE 1 TABLET BY MOUTH TWICE DAILY FOR BLOOD PRESSURE amlodipine 5 mg tablet See Rx Instructions .ROUTE .COMPLEX Qty: 90 0RF Dose Instruction: TAKE 1 TABLET BY MOUTH ONCE DAILY Rx Instructions: TAKE 1 TABLET BY MOUTH ONCE DAILY metformin 1,000 mg tablet See Rx Instructions .ROUTE .COMPLEX Qty: 180 0RF Dose Instruction: TAKE 1 TABLET BY MOUTH TWICE DAILY Rx Instructions: TAKE 1 TABLET BY MOUTH TWICE DAILY clopidogrel 75 mg tablet See Rx Instructions .ROUTE .COMPLEX Qty: 90 0RF Dose Instruction: TAKE ONE TABLET BY MOUTH EVERY DAY FOR BLOOD THINNER Rx Instructions: TAKE ONE TABLET BY MOUTH EVERY DAY FOR BLOOD THINNER (DME) FreeStyle Mayuri 14 Day Sensor Kit See Rx Instructions .ROUTE .COMPLEX Qty: 2 5RF Dose Instruction: CHANGE EVERY 14 DAYS Rx Instructions: CHANGE EVERY 14 DAYS gabapentin 800 mg tablet 800 mg PO QID Qty: 120 2RF bisacodyl [Dulcolax (bisacodyl)] 10 mg suppository 10 mg [place] DAILY PRN (Reason: constipation) Qty: 12 2RF hydrocortisone acetate [Anusol-HC] 25 mg suppository 25 mg [place] BID Qty: 24 0RF lisinopril 20 mg tablet 20 mg PO DAILY Qty: 90 3RF promethazine 25 mg tablet See Rx Instructions .ROUTE .COMPLEX Qty: 40 2RF Dose Instruction: TAKE 1 TABLET BY MOUTH THREE TIMES DAILY NEEDED FOR NAUSEA AND VOMITING Rx Instructions: TAKE 1 TABLET BY MOUTH THREE TIMES DAILY NEEDED FOR NAUSEA AND VOMITING Referrals Follow up/Referrals: Rudy Desouza DO [Primary Care Provider] - See instructions Activity Restrictions/Add. Instructions Additional Instructions/Restrictions: You were evaluated in the emergency department today. Please pick remover your prescriptions for MiraLAX and senna. Follow-up closely with your vascular surgeon as well as your primary care provider. Return to the emergency department for new or worsening symptoms. Clinical Impressions Clinical Impression: Constipation, AAA (abdominal aortic aneurysm) Instructions Patient Instructions: DI for Diarrhea and Traveler's Diarrhea -- Adult, DI for Diarrhea and Traveler's Diarrhea -- Child, DI for Nausea -- Adult, DI for Nausea -- Child Discharge ED Provider: Lisbet Ochoa General Adult HPI General Chief complaint: Nausea/Vomiting/Diarrhea Stated complaint: cant. have bowl movement Time Seen by Provider: 08/04/23 11:53 Mode of Arrival: Ambulatory Source of Information: Patient Limitations: No Limitations Description of Symptoms (Recalled from ER Triage Doc. by RN): Pt. complains of diarrhea since march when he had surgery on his hip. He states his last BM was 2 days ago and was runny. He is concerned he may have a blockage. History of Present Illness HPI narrative: This patient is a 68-year-old male with a history of CAD status post CABG, obesity, hypertension, hyperlipidemia, and diabetes presenting to the emergency department for evaluation with concern he may have a bowel blockage. He states that since March, he had had profuse daily diarrhea, which he has been seen for in the past. He was seen 3 days ago in [facility] for constipation, as he was not having good bowel movements. Since then, he has not had any bowel movement at all. He notes that he is having trouble passing gas. Given this, he was concerned that he could have a blockage. He denies any history of abdominal surgeries or abdominal blockages. He states that his bowel issues have been persistent since he had a hip surgery in March and was on antibiotics for a long time related to that. He denies any fevers, chills, vomiting, or other concerns. He does note nausea. Related Data Home Medications Medication Instructions Recorded Confirmed hydrocodone 7.5 mg-acetaminophen 7.5 tab PO Q6H PRN 04/10/22 05/29/23 325 mg tablet daptomycin 19 ml IV DAILY 05/29/23 05/29/23 insulin glargine [Lantus Solostar 20 unit SQ HS 05/29/23 05/29/23 U-100 Insulin] Previous Rx's Medication Instructions Recorded aspirin 81 mg tablet,delayed 81 mg PO DAILY Blood thinner #90 05/28/21 release tabs flash glucose scanning reader #1 ea 08/15/21 (FreeStyle Mayuri 14 Day [place]) nystatin 100,000 unit/mL oral 5 ml PO TID thrush #480 mL 02/13/23 suspension pantoprazole 40 mg tablet,delayed See Rx Instructions .Route 02/14/23 release .COMPLEX #90 tabs carvedilol 12.5 mg tablet See Rx Instructions .Route 02/21/23 .COMPLEX #180 tabs sitagliptin phosphate 100 mg See Rx Instructions .Route 02/21/23 tablet (Januvia) .COMPLEX #90 tabs amlodipine 5 mg tablet See Rx Instructions .Route 03/07/23 .COMPLEX #90 tabs metformin 1,000 mg tablet See Rx Instructions .Route 03/07/23 .COMPLEX #180 tabs clopidogrel 75 mg tablet See Rx Instructions .Route 03/25/23 .COMPLEX #90 tabs atorvastatin 40 mg tablet See Rx Instructions .Route 04/29/23 .COMPLEX #90 tabs flash glucose sensor (FreeStyle #2 ea 05/09/23 Mayuri 14 Day Sensor kit) gabapentin 800 mg tablet 800 mg PO QID Pain #120 tabs 06/24/23 bisacodyl 10 mg rectal suppository 10 mg [place] DAILY PRN constipation 07/31/23 (Dulcolax (bisacodyl)) #12 ea hydrocortisone acetate 25 mg 25 mg [place] BID hemorrhoids #24 ea 08/04/23 rectal suppository (Anusol-HC) lisinopril 20 mg tablet 20 mg PO DAILY #90 tabs 08/04/23 polyethylene glycol 3350 17 17 g PO DAILY #510 grams 08/04/23 gram/dose oral powder (Miralax) promethazine 25 mg tablet See Rx Instructions .Route 08/04/23 .COMPLEX #40 tabs sennosides 8.6 mg tablet (senna) 8.6 mg PO DAILY #30 tabs 08/04/23 Allergies Allergy/AdvReac Type Severity Reaction Status Date / Time No Known Allergies Allergy Verified 05/29/23 13:24 [facility] Disclaimer: The information contained in this section may have been updated after the patient was seen, as this information can be updated by other users. Medical History CAD (coronary artery disease) Diabetes 1.5, managed as type 1 Dyspnea Encounter for pre-operative cardiovascular clearance Surgical History Hx of CABG Social History Smoking Status: Current every day smoker tobacco type: cigarettes packs per day: 1 second hand exposure: No alcohol intake: never substance use type: denies use current occupational status: disabled Travel in the last 8 weeks: None household members: family housing: house current occupational exposures/hazards: No caffeine: Yes ROS Obtained: Yes All systems reviewed & no additional complaints except as documented Physical Exam General General appearance: alert, in no apparent distress and obese Head Head exam: atraumatic and normocephalic Eye Eye exam: Present normal appearance, PERRL and EOMI ENT ENT exam: Present normal exam, normal oropharynx, mucous membranes moist and normal external ear exam Neck Neck exam: Present normal inspection, full ROM and trachea midline; Absent tenderness Chest Chest inspection: Present normal inspection and symmetric chest wall rise; Absent tenderness Respiratory Respiratory exam: Present normal lung sounds bilaterally; Absent respiratory distress, wheezes, stridor or accessory muscle use Cardiovascular Cardiovascular exam: Present regular rate and normal rhythm Abdominal Exam Abdominal exam: Present soft, distention (Very mild), tenderness (Mild generalized) and normal bowel sounds; Absent guarding, rebound or rigidity Extremities Exam Extremities exam: Present normal inspection, full ROM and normal capillary refill; Absent tenderness or edema Back Exam Back exam: Present normal inspection and full ROM; Absent tenderness Neurological Exam Neurological exam: Present alert, oriented X3, CN II-XII intact and normal gait; Absent motor sensory deficit Psychiatric Psychiatric exam: Present normal affect and normal mood Skin Skin exam: Present warm and dry Medical Decision Making Medical Records Medical records reviewed: Yes I reviewed the patient's medical records. Paresh Inquiry Pt receiving controlled substance: No Vital Signs: 08/04/23 11:56 Temperature 98.0 F Temperature Source Oral Pulse Rate [Right Brachial] 81 Respiratory Rate 18 Blood Pressure [Right Arm] 155/80 H Blood Pressure Mean [Right Arm] 105 Blood Pressure Source [Right Arm] Automatic Cuff Blood Pressure Position [Right Arm] Sitting 02 Sat by Pulse Oximetry 98 Oxygen Delivery Method Room Air Lab Data Lab results reviewed: Yes I reviewed the patient's lab results. Lab Results 08/04/23 12:43: WBC 9.9, RBC 4.46 L, Hgb 12.5 L, Hct 38.6 L, MCV 86.5, MCH 28.0, MCHC 32.4, RDW 14.4, Plt Count 313, MPV 8.2, Neut % (Auto) 63.1, Lymph % (Auto) 29.8, Prentiss % (Auto) 4.9, Eos % (Auto) 1.7, Baso % (Auto) 0.6, Neut # (Auto) 6.2, Lymph # (Auto) 2.9, Prentiss # (Auto) 0.5, Eos # (Auto) 0.2, Baso # (Auto) 0.1, Sodium 135 L, Potassium 4.9, Chloride 106, Carbon Dioxide 26, Anion Gap 7.9, BUN 12, Creatinine 0.60 L, Estimated Creat Clear 100, Estimated GFR 134, Est GFR ( Amer) 163, Glucose 344 H, Calcium 9.2, Total Bilirubin 0.4, AST 26, ALT 20, Alkaline Phosphatase 93, Total Protein 7.0, Albumin 3.8, Globulin 3.2, Albumin/Globulin Ratio 1.2 08/04/23 12:43 08/04/23 12:43 Orders (Tests/Meds): ORDERS Category Date Time Status CT abdomen pelvis wo con Stat Cat Scan 08/04/23 12:26 Taken Complete Blood Count Auto Diff Stat Lab 08/04/23 12:43 Completed Comprehensive Metabolic Panel Stat Lab 08/04/23 12:43 Completed Medical Decision Narrative: In summary, this patient is a 68-year-old male presenting to the Emergency Department for evaluation of constipation with concern that he may have a bowel blockage. Differential diagnoses considered include but are not limited to constipation, fecal impaction, bowel obstruction. Ruling out the most morbid conditions drove assessment. On exam, the patient is well-appearing with mild abdominal distention and tenderness, but otherwise a benign abdominal exam. Workup included CBC, CMP, and CT abdomen pelvis without IV contrast. I independently interpreted CT scan prior to the radiologist read and noted AAA, which patient is aware of. No obstructive pattern. He also has chronic gallstones without acute cholecystitis. Please see their read for final interpretation. Radiology notes that the patient's AAA has enlarged since June 2021, but patient states that he is already aware of this and is awaiting outpatient surgery. At this time, there is nothing acute on imaging or lab evaluation that I feel the patient would require admission from today. Given his constipation type symptoms, I feel it is appropriate for discharge with prescriptions for MiraLAX and senna and instructions for cleanout. He was given strict return precautions, instructions to keep his outpatient vascular surgery follow-up, and he was discharged in stable condition after all questions were answered. Critical Care Critical Care Time Critical Care Time: No
[2023-08-04 12:52] LABS: Basophils # 0.1 K/mm3 (0-0.2); Basophils % 0.6 % (0.1-2.0); Eosinophils # 0.2 K/mm3 (0.0-0.4); Eosinophils % 1.7 % (0.1-12.0); Hematocrit 38.6 % (42.0-52.0); Hemoglobin 12.5 g/dL (14.1-18.0); Lymphocytes # 2.9 K/mm3 (0.7-4.5); Lymphocytes % 29.8 % (10-50); Mean Corpuscular HGB Conc 32.4 g/dL (31.8-35.4); Mean Corpuscular Volume 86.5 fl (80-94); Mean Platelet Volume 8.2 fl (7.4-10.4); Monocytes # 0.5 K/mm3 (0.1-1.0); Monocytes % 4.9 % (1.7-9.3); Neutrophils # 6.2 K/mm3 (1.8-7.8); Neutrophils % 63.1 % (37.0-80.0); Platelet Count 313 K/mm3 (142-424); Red Blood Count 4.46 M/mm3 (4.60-6.20); Red Cell Distribution Width 14.4 % (11.5-17.5); White Blood Count 9.9 K/mm3 (4.8-10.8)
[2023-08-04 12:58] LABS: Alanine Aminotransferase 20 U/L (12-78); Albumin Level 3.8 g/dl (3.5-5.0); Albumin/Globulin Ratio 1.2 (1.1-1.8); Alkaline Phosphatase 93 U/L (38-126); Anion Gap 7.9 mEq/L (5-15); Aspartate Amino Transferase 26 U/L (17-59); Bilirubin,Total 0.4 mg/dl (0.2-1.3); Blood Urea Nitrogen 12 mg/dl (9-20); Calcium 9.2 mg/dl (8.4-10.2); Carbon Dioxide 26 mmol/L (22.0-30.0); Chloride 106 mmol/L (98-107); Creatinine Clearance Estimated 100 mL/min (50-200); Estimated Glomerular Filt Rate 134 ml/min (>60); GFR (African American) 163 ML/MIN (>60); Globulin 3.2 g/dL (1.3-3.2); Glucose 344 mg/dl (74-100); Potassium 4.9 mmoL/L (3.5-5.1); Sodium 135 mmol/L (136-145)
--- NOTE | 2023-08-04 13:41 | PC.NURSE ---
pt went to Ct
[2023-08-04 15:05] VITALS: BP 148/81; PULSE 79; RESP 18; TEMP 36.6; O2SAT 98
== END 2023-08-04 15:05 | disposition home or self-care (01) ==
PROVIDERS: Emergency Provider Emergency Medicine; PCP Internal Medicine
DX: I71.40 Abdominal aortic aneurysm, without rupture, unspecified (principal); K59.00 Constipation, unspecified; F17.210 Nicotine dependence, cigarettes, uncomplicated; E11.65 Type 2 diabetes mellitus with hyperglycemia; E78.5 Hyperlipidemia, unspecified; I10 Essential (primary) hypertension; I25.10 Atherosclerotic heart disease of native coronary artery without angina pectoris; Z95.5 Presence of coronary angioplasty implant and graft; Z79.84 Long term (current) use of oral hypoglycemic drugs; Z79.4 Long term (current) use of insulin
CPT/HCPCS: 74176; 80053; 85025; 99284

== ENCOUNTER 2023-09-24 11:17 | Outpatient (CLI) | payer MEDICARE, SELFPAY ==
--- NOTE | 2023-09-24 11:56 | ECG_ITS ---
APPROVED REPORT Exam: Resting ECG HR:79 bpm ECG Measurements Heart Rate 79 AXES NC 136 P 31 QRSd 97 QRS 68 QT 394 T 7 QTc 429 Conclusion SINUS RHYTHM INCOMPLETE RIGHT BUNDLE BRANCH BLOCK [90+ ms QRS DURATION, TERMINAL R IN V1/V2, 40+ ms S IN I/aVL/V4/V5/V6] NONSPECIFIC ST & T-WAVE ABNORMALITY BORDERLINE ECG UNCONFIRMED REPORT Electronically signed by : Robert Andujar MD 09/26/2023 07:41:49
[2023-09-24 12:18] LABS: Basophils # 0.1 K/mm3 (0-0.2); Basophils % 0.5 % (0.1-2.0); Eosinophils # 0.2 K/mm3 (0.0-0.4); Eosinophils % 1.4 % (0.1-12.0); Hematocrit 39.4 % (42.0-52.0); Lymphocytes % 27.8 % (10-50); Mean Corpuscular HGB Conc 30.4 g/dL (31.8-35.4); Mean Corpuscular Hemoglobin 26.7 pg (27.0-31.2); Mean Corpuscular Volume 87.7 fl (80-94); Mean Platelet Volume 8.2 fl (7.4-10.4); Monocytes # 0.6 K/mm3 (0.1-1.0); Monocytes % 5.5 % (1.7-9.3); Neutrophils % 64.8 % (37.0-80.0); Platelet Count 384 K/mm3 (142-424); Red Cell Distribution Width 15.1 % (11.5-17.5); White Blood Count 10.8 K/mm3 (4.8-10.8)
[2023-09-24 13:01] LABS: Chloride 105 mmol/L (98-107)
[2023-09-24 13:02] LABS: Sodium 138 mmol/L (136-145)
[2023-09-24 13:04] LABS: Alanine Aminotransferase 12 U/L (12-78); Albumin Level 3.5 g/dl (3.5-5.0); Albumin/Globulin Ratio 1.3 (1.1-1.8); Alkaline Phosphatase 105 U/L (38-126); Aspartate Amino Transferase 21 U/L (17-59); Bilirubin,Total 0.3 mg/dl (0.2-1.3); Blood Urea Nitrogen 16 mg/dl (9-20); Calcium 9.3 mg/dl (8.4-10.2); Carbon Dioxide 30 mmol/L (22.0-30.0); Estimated Glomerular Filt Rate 84 ml/min (>60); GFR (African American) 102 ML/MIN (>60); Globulin 2.8 g/dL (1.3-3.2); Glucose 316 mg/dl (74-100); Total Protein,Serum 6.3 g/dl (6.3-8.2)
== END 2023-09-24 23:59 ==
LOC: LAB 11:18
PROVIDERS: PCP Internal Medicine; Visit Provider Surgery
DX: K80.10 Calculus of gallbladder with chronic cholecystitis without obstruction (principal); I45.10 Unspecified right bundle-branch block
CPT/HCPCS: 36415; 80053; 85025; 93005

== ENCOUNTER 2023-10-02 13:54 | Outpatient (CLI) | payer MEDICARE, SELFPAY ==
[2023-10-02 13:36] LABS: Basophils # 0.2 K/mm3 (0-0.2); Basophils % 1.6 % (0.1-2.0); Eosinophils # 0.1 K/mm3 (0.0-0.4); Eosinophils % 1.5 % (0.1-12.0); Hematocrit 36.4 % (42.0-52.0); Mean Corpuscular HGB Conc 30.3 g/dL (31.8-35.4); Mean Corpuscular Hemoglobin 26.4 pg (27.0-31.2); Mean Corpuscular Volume 87.3 fl (80-94); Mean Platelet Volume 7.8 fl (7.4-10.4); Monocytes # 0.5 K/mm3 (0.1-1.0); Monocytes % 5.1 % (1.7-9.3); Neutrophils % 60.9 % (37.0-80.0); Platelet Count 393 K/mm3 (142-424); Red Blood Count 4.17 M/mm3 (4.60-6.20); White Blood Count 9.8 K/mm3 (4.8-10.8)
[2023-10-02 15:22] LABS: Vitamin B12 233 pg/mL (239-931)
[2023-10-02 15:35] LABS: Folate 5.24 ng/mL
[2023-10-02 16:09] LABS: Iron 39 ug/dL (49-181)
[2023-10-02 16:19] LABS: Total Iron Binding Capacity 324 ug/dL (261-462)
[2023-10-02 16:46] LABS: Ferritin 14.2 ng/ml (17.9-464)
[2023-10-04 13:29] LABS: Peripheral Smear Review Scanned Result
== END 2023-10-02 23:59 ==
LOC: LAB.DROPOF 13:55
PROVIDERS: PCP Internal Medicine; Visit Provider Internal Medicine
DX: E11.9 Type 2 diabetes mellitus without complications (principal); I10 Essential (primary) hypertension; D50.9 Iron deficiency anemia, unspecified
CPT/HCPCS: 82607; 82728; 82746; 83540; 83550; 85025

== ENCOUNTER 2024-02-11 19:30 | Outpatient (CLI) | payer MEDICARE, SELFPAY ==
[2024-02-11 20:05] LABS: Basophils # 0.1 K/mm3 (0-0.2); Basophils % 0.7 % (0.1-2.0); Eosinophils # 0.1 K/mm3 (0.0-0.4); Eosinophils % 1.2 % (0.1-12.0); Hematocrit 46.1 % (42.0-52.0); Hemoglobin 13.5 g/dL (14.1-18.0); Lymphocytes # 2.9 K/mm3 (0.7-4.5); Lymphocytes % 32.7 % (10-50); Mean Corpuscular HGB Conc 29.2 g/dL (31.8-35.4); Mean Corpuscular Hemoglobin 27.7 pg (27.0-31.2); Mean Corpuscular Volume 94.8 fl (80-94); Mean Platelet Volume 8.6 fl (7.4-10.4); Monocytes # 0.5 K/mm3 (0.1-1.0); Monocytes % 5.3 % (1.7-9.3); Neutrophils # 5.4 K/mm3 (1.8-7.8); Neutrophils % 60.1 % (37.0-80.0); Platelet Count 305 K/mm3 (142-424); Red Blood Count 4.86 M/mm3 (4.60-6.20); Red Cell Distribution Width 15.4 % (11.5-17.5); White Blood Count 8.9 K/mm3 (4.8-10.8)
[2024-02-11 20:15] LABS: Alanine Aminotransferase 10 U/L (12-78); Albumin Level 3.6 g/dl (3.5-5.0); Albumin/Globulin Ratio 1.1 (1.1-1.8); Alkaline Phosphatase 115 U/L (38-126); Anion Gap 10.2 mEq/L (5-15); Aspartate Amino Transferase 17 U/L (17-59); Bilirubin,Total 0.6 mg/dl (0.2-1.3); Blood Urea Nitrogen 13 mg/dl (9-20); Calcium 9.3 mg/dl (8.4-10.2); Carbon Dioxide 25 mmol/L (22.0-30.0); Chloride 108 mmol/L (98-107); Chol/HDL Ratio 4.1 (1-3.5); Cholesterol 177 mg/dl (140-200); Estimated Glomerular Filt Rate 134 ml/min (>60); GFR (African American) 163 ML/MIN (>60); Globulin 3.2 g/dL (1.3-3.2); Glucose 274 mg/dl (74-100); HDL Cholesterol 43 mg/dl (40-60); Potassium 4.2 mmoL/L (3.5-5.1); Sodium 139 mmol/L (136-145); Total Protein,Serum 6.8 g/dl (6.3-8.2); Triglycerides 190 mg/dl (30-150); VLDL Cholesterol 38 mg/dL (0-40)
[2024-02-11 20:26] LABS: Direct LDL Cholesterol 84.49 mg/dL (100-129)
[2024-02-11 21:11] LABS: Hemoglobin A1C 11.9 % (4.0-6.0)
== END 2024-02-11 23:59 | disposition home or self-care (01) ==
LOC: LAB.DROPOF 19:34
PROVIDERS: PCP Internal Medicine; Visit Provider Internal Medicine
DX: E78.2 Mixed hyperlipidemia (principal); E66.9 Obesity, unspecified; Z72.0 Tobacco use; E11.9 Type 2 diabetes mellitus without complications; Z79.899 Other long term (current) drug therapy; Z79.4 Long term (current) use of insulin
CPT/HCPCS: 80053; 80061; 83036; 85025

== ENCOUNTER 2024-03-09 13:57 | Outpatient (CLI) | payer MEDICARE, SELFPAY ==
[2024-03-09 19:43] LABS: Microalbumin/Creatinine Ratio 44.3
[2024-03-09 19:45] LABS: Creatinine,Urine Random 185 mg/dL (Not Estab.)
== END 2024-03-09 23:59 | disposition home or self-care (01) ==
LOC: LAB.DROPOF 03-10 13:57
PROVIDERS: PCP Internal Medicine; Visit Provider Internal Medicine
DX: R73.03 Prediabetes (principal)
CPT/HCPCS: 82043; 82570

== ENCOUNTER 2024-05-06 08:57 | Outpatient (CLI) | payer MEDICARE, SELFPAY ==
--- NOTE | 2024-05-06 08:58 | CA_ITS ---
FINAL REPORT CLINICAL HISTORY: Vasculopath: smoker,Hx-CABG, 06/2023 AAA 6cm w/graft COMPARISON: None FINDINGS: Aorta velocity: 41 cm/sec Right kidney: 11.2 cm. No evidence of hydronephrosis or mass. Right intrarenal RI: 0.65-0.68 Right renal artery velocity: 122 cm/sec. Right RAR (Renal artery-Aortic Ratio): 2.98 Left Kidney: 13.4 cm. No evidence of hydronephrosis or mass. Left intrarenal RI: 0.69-0.71 Left renal artery velocity: 460 cm/sec. Left RAR (Renal Artery-Aortic Ratio): 11.23 IMPRESSION: No evidence of hemodynamically significant right renal artery stenosis. Greater than 60% stenosis of the left renal artery. As the patient has undergone a prior abdominal aortic aneurysm repair and has a stent graft, recommend correlation with catheter angiography. Reviewed, Interpreted and Dictated by Fili Osorio III, MD Transcribed by Inga Webb Authenticated and . [facility]
--- NOTE | 2024-05-06 09:27 | US_ITS ---
FINAL REPORT CLINICAL HISTORY: HTN COMPARISON: None FINDINGS: RENAL ULTRASOUND Ultrasound images of the kidneys were obtained. The right kidney measures 13.0 cm in length. The left kidney measures 13.8 cm in length. There is no hydronephrosis or mass. The spleen is enlarged measuring 14.5 cm. IMPRESSION: Normal renal ultrasound. Splenomegaly. Reviewed, Interpreted and Dictated by Fili Osorio III, MD Transcribed by Yasmin Monterroso Authenticated and [facility]
== END 2024-05-06 23:59 | disposition home or self-care (01) ==
LOC: RT 08:58
PROVIDERS: PCP Internal Medicine; Visit Provider Internal Medicine
DX: I10 Essential (primary) hypertension (principal)
CPT/HCPCS: 76770; 93976

== ENCOUNTER 2024-06-28 09:26 | Outpatient (CLI) | payer MEDICARE, SELFPAY ==
[2024-06-28 19:18] LABS: 25-OH Vitamin D, Total 27.7 ng/mL (30-100)
[2024-06-28 19:30] LABS: Prostate Specific Ag Screen 1.3 ng/ml (0.0-4.0); Thyroid Stimulating Hormone 2.48 uIU/mL (0.465-4.68)
[2024-06-28 21:57] LABS: Creatinine,Urine Random 121 mg/dL (Not Estab.); Microalbumin/Creatinine Ratio 41.6
== END 2024-06-28 23:59 | disposition home or self-care (01) ==
LOC: LAB.DROPOF 06-29 09:26
PROVIDERS: PCP Internal Medicine; Visit Provider Internal Medicine
DX: Z12.5 Encounter for screening for malignant neoplasm of prostate (principal); E78.5 Hyperlipidemia, unspecified; E11.9 Type 2 diabetes mellitus without complications; Z79.4 Long term (current) use of insulin; Z79.84 Long term (current) use of oral hypoglycemic drugs; E55.9 Vitamin D deficiency, unspecified
CPT/HCPCS: 82043; 82306; 82570; 84443; G0103

== ENCOUNTER 2024-08-06 09:02 | Outpatient (CLI) | payer MEDICARE, SELFPAY ==
--- NOTE | 2024-08-06 09:04 | CA_ITS ---
APPROVED REPORT EXAM: Comprehensive 2D, Doppler, and color-flow Echocardiogram Signal Wirer: HENRY Brady, RVS Ht: 5 ft 10 in Wt: 219lbs BSA: 2.17 BP: 160/88 mmHg Indications: CAD, DM, Smoker, HTN, [place]STORE[place], CABG, AAA 2D Dimensions Left Atrium 3.74 cm LA Volume 53.90 mL LA Volume Index 24.30 mL/m2 (M/F) 16-34 M-Mode Dimensions RVDd 2.89 cm (0.9-2.6) LA Diam 5.16 cm (1.9-4.0) LVDd 5.18 cm (3.5-5.7) LVDs 3.31 cm (3.5-5.7) IVSd 1.15 cm (0.6-1.1) PWd 1.36 cm (0.6-1.1) EF (Teich) 65.30% EPSs 0.99 cm FS 36.10% EDV (Teich) 128.40 mL TAPSE 1.37 (<1.7) ESV (Teich) 44.50 mL LV Diastology E Decel Time 280 (160-240 msec) E/A Ratio 0.98 MED A' 11.40 cm/s LAT A' 9.30 cm/s Aortic Valve KAY Index 0.83 cm2/m2 AoV Peak Josafat. 138.0 (50-130 cm/s) AO Peak GR. 7.60 mmHg AO Mean GR. 3.80 (<5 mmHg) AO VTI 29.6 (18-25 cm) KAY (VTI) 1.85 (2.5-4.5 cm2) Mitral Valve MV A Velocity 84.0 (40-130 cm/s) E/A Ratio 0.98 Pulmonary Valve PV Peak Velocity 84.0 (50-150 cm/s) Left Ventricle The left ventricle is normal size. The left ventricular systolic function is normal. The left ventricular ejection fraction is within the normal range. There is normal left ventricular wall thickness. There is normal LV segmental wall motion. The left ventricular diastolic function is normal. LVEF is 60%. Right Ventricle The right ventricle is normal size. The right ventricular systolic function is normal. Atria The left atrium size is normal. The right atrium size is normal. There is no Doppler evidence of interatrial shunt. Aortic Valve Aortic valve is mildly thickened. There is no aortic valvular stenosis. No aortic regurgitation is present. Mitral Valve The mitral valve is normal in structure. No evidence of mitral valve stenosis. Trace mitral regurgitation. Tricuspid Valve Tricuspid valve is grossly normal in structure and function. Trace tricuspid regurgitation. Pulmonic Valve The pulmonary valve is normal in structure. Trace pulmonic regurgitation. Great Vessels The aortic root is normal in size. The ascending aorta is not well-visualized. IVC is normal in size and collapses >50% with inspiration. Pericardium There is no pericardial effusion. Other Information Study Quality: Fair Conclusion Normal biventricular systolic function. No significant valvular stenosis or regurgitation. Electronically signed by : Marie Herrera MD 08/09/2024 11:44:57
== END 2024-08-06 23:59 | disposition home or self-care (01) ==
LOC: RT 09:02
PROVIDERS: PCP Internal Medicine; Visit Provider Nurse Practitioner Family
DX: I10 Essential (primary) hypertension (principal); I25.118 Atherosclerotic heart disease of native coronary artery with other forms of angina pectoris; Z95.1 Presence of aortocoronary bypass graft; E11.69 Type 2 diabetes mellitus with other specified complication; E78.5 Hyperlipidemia, unspecified; Z86.73 Personal history of transient ischemic attack (TIA), and cerebral infarction without residual deficits
CPT/HCPCS: 93306

== ENCOUNTER 2024-10-04 22:37 | Emergency (ER) | payer MEDICARE, SELFPAY ==
[2024-10-04 22:44] VITALS: BP 148/76; PULSE 81; RESP 18; TEMP 36.8; O2SAT 98; BMI 30.8
--- NOTE | 2024-10-04 22:58 | ED_ITS ---
Discharge Plan Disposition Patient Disposition: Home, Self-Care Condition: Good Prescriptions Prescriptions: New lidocaine 5 % adhesive patch,medicated See Rx Instructions .ROUTE .COMPLEX Qty: 15 0RF Rx Instructions: Apply 1 patch to the most painful area and leave on for 12 hours. Remove and leave off for 12 hours before using a new patch methocarbamol 500 mg tablet 500 mg PO TID PRN (Reason: muscle spasm) Qty: 20 0RF No Action Januvia 100 mg tablet 100 mg PO DAILY 90 Days Qty: 90 4RF hydrocodone-acetaminophen 7.5-325 mg tablet 7.5 tab PO Q6H PRN (Reason: pain) 30 Days Qty: 90 0RF insulin glargine 100 unit/mL (3 mL) insulin pen, sensor 26 unit SQ HS Qty: 3 2RF gabapentin 800 mg tablet 800 mg PO TID 30 Days Qty: 90 2RF promethazine 12.5 mg tablet 12.5 mg PO TID PRN (Reason: nausea and vomiting) Qty: 60 3RF aspirin 81 mg tablet,delayed release (DR/EC) 81 mg PO DAILY Qty: 90 0RF (DME) FreeStyle Mayuri 14 Day [place] Misc See Rx Instructions MISCELLANE .MEDSUPPLY Qty: 1 0RF Rx Instructions: As directed metformin 1,000 mg tablet 1,000 mg PO BID 90 Days Qty: 180 4RF ipratropium-albuterol 0.5 mg-3 mg(2.5 mg base)/3 mL solution for nebulization 3 ml inhalation Q6H PRN (Reason: shortness of breath or wheezing) Qty: 90 0RF (DME) pen needle, diabetic [BD Ultra-Fine Gayatri Pen Needle] 32 gauge x 5/32 needle See Rx Instructions .ROUTE .MEDSUPPLY Qty: 1200 Rx Instructions: As directed atorvastatin [Lipitor] 80 mg tablet 80 mg PO DAILY Qty: 30 2RF Humulin R Regular U-100 Insuln 100 unit/mL solution 1 sliding scale dose SQ USEASDIRECTD Qty: 10 2RF nicotine 21 mg/24 hr patch 24 hour 1 patch transdermal DAILY Qty: 28 2RF amlodipine [Norvasc] 10 mg tablet 10 mg PO DAILY Qty: 30 5RF lisinopril 10 mg tablet See Rx Instructions .ROUTE .COMPLEX Qty: 90 0RF Dose Instruction: TAKE 1 TABLET BY MOUTH ONCE DAILY Rx Instructions: TAKE 1 TABLET BY MOUTH ONCE DAILY (DME) Dexcom G7 Forensic Audit Expert Misc See Rx Instructions .Route Qty: 1 0RF Rx Instructions: As directed ferrous gluconate 324 mg (38 mg iron) tablet 324 mg PO TID 30 Days Qty: 90 3RF (DME) Dexcom G7 Sensor Device See Rx Instructions .Route Qty: 3 2RF Rx Instructions: As directed (DME) FreeStyle Mayuri 14 Day Sensor Kit See Rx Instructions .ROUTE .COMPLEX Qty: 2 2RF Dose Instruction: CHANGE EVERY 14 DAYS Rx Instructions: CHANGE EVERY 14 DAYS (DME) Dexcom G7 Sensor Device See Rx Instructions .Route Qty: 1 6RF Rx Instructions: As directed (DME) Dexcom G7 Forensic Audit Expert Misc See Rx Instructions .Route Qty: 1 6RF Rx Instructions: As directed (DME) Omnipod 5 G6-G7 Pods (Gen 5) Cartridge See Rx Instructions .Route Qty: 5 2RF Rx Instructions: As directed pantoprazole 40 mg tablet,delayed release (DR/EC) See Rx Instructions .ROUTE .COMPLEX Qty: 90 0RF Dose Instruction: TAKE ONE TABLET BY MOUTH EVERY DAY FOR REFLUX/ACID REFLUX Rx Instructions: TAKE ONE TABLET BY MOUTH EVERY DAY FOR REFLUX/ACID REFLUX levetiracetam [Keppra] 750 mg tablet 750 mg PO BID 90 Days Qty: 180 3RF Brilinta 90 mg tablet See Rx Instructions .ROUTE .COMPLEX Qty: 60 0RF Dose Instruction: TAKE 1 TABLET BY MOUTH EVERY 12 HOURS Rx Instructions: TAKE 1 TABLET BY MOUTH EVERY 12 HOURS methylnaltrexone 150 mg tablet 450 mg PO DAILY Qty: 90 1RF bisacodyl [Dulcolax (bisacodyl)] 10 mg suppository 10 mg UT DAILY PRN (Reason: constipation) Qty: 12 2RF polyethylene glycol 3350 [Miralax] 17 gram/dose powder 17 g PO DAILY Qty: 510 1RF Laxative (bisacodyl) 5 mg tablet 5 mg PO HS 2 Days Qty: 2 1RF carvedilol 12.5 mg tablet See Rx Instructions .ROUTE .COMPLEX Qty: 180 0RF Dose Instruction: TAKE 1 TABLET BY MOUTH TWICE DAILY - MUST ADMINISTER WITH A MEAL/FOOD Rx Instructions: TAKE 1 TABLET BY MOUTH TWICE DAILY - MUST ADMINISTER WITH A MEAL/FOOD Referrals Follow up/Referrals: Peppin,Rudy F, DO [Primary Care Provider] - See instructions Activity Restrictions/Add. Instructions Additional Instructions/Restrictions: You were evaluated in the ER and are believed to be appropriate for discharge at this time. Continue taking your home medications as previously prescribed. Use the incentive spirometer every 1-2 hours. Use the prescribed lidocaine patches as directed. Take the prescribed muscle relaxer if needed. The muscle relaxer, methocarbamol, may make you sleepy. Do not drive or operate machinery after taking it. Make an appointment with your primary care doctor for reevaluation in 2 to 3 days. Return to the ER with new, worsening, or otherwise concerning symptoms. Clinical Impressions Clinical Impression: Rib pain on left side Instructions Patient Instructions: Rib Fracture, DI for Rib Fracture Print Language Print Language: Lao Discharge ED Provider: Fredy Domingo General Adult HPI General Chief complaint: PAIN Stated complaint: Left side pain started last night, heard a pop Time Seen by Provider: 10/04/24 22:58 Mode of Arrival: Ambulatory Source of Information: Patient Description of Symptoms (Recalled from ER Triage Doc. by RN): Pt states he was at [facility] yesterday on one of the motorized carts and leaned over to fiber picker an item and felt a popping sensation to his left side. Rates pain as a 6/10. History of Present Illness HPI narrative: 69-year-old male with history of tobacco use, CVA, hyperlipidemia, type 2 diabetes presents to the ER with complaints of left side pain. Patient reports yesterday he was at [facility] when he leaned over to fiber picker an item that fell to the floor and he felt a popping sensation in the left side. Since that time he has had pain and he indicates to the left lower lateral ribs. He denies any shortness of breath, chest pressure, nausea, vomiting, diarrhea, constipation. He states he took one of his home Lortabs prior to arrival but still has discomfort. He states it does hurt worse if he takes a deep breath. Pain has been constant since the time of the injury. He did not fall to the ground, did not strike his head, no other injuries or concerns. Family at bedside was concerned patient could potentially have a hernia but he has no bulging in the side and patient pointing to his pain indicates more to his ribs than to the abdomen. He also has no abdominal complaints. Patient is more concerned about the possibility of rib fracture. No recent illness. No new back pain, neck pain, numbness, tingling, or weakness. No other associated symptoms. Related Data Home Medications ?Medication ?Instructions ?Recorded ?Confirmed pen needle, diabetic 32 gauge x #1,200 ea 03/22/24 08/25/24 (BD Ultra-Fine Gayatri Pen Needle) Previous Rx's ?Medication ?Instructions ?Recorded aspirin 81 mg tablet,delayed 81 mg PO DAILY Blood thinner #90 05/28/21 release tabs flash glucose scanning reader #1 ea 08/15/21 (FreeStyle Mayuri 14 Day [place]) lisinopril 10 mg tablet See Rx Instructions .Route 08/21/23 .COMPLEX #90 tabs blood-glucose meter,continuous #1 ea 08/27/23 (Dexcom G7 Forensic Audit Expert) ferrous gluconate 324 mg (38 mg 324 mg PO TID 30 days #90 tabs 10/03/23 iron) tablet blood-glucose sensor (Dexcom G7 #3 ea 10/13/23 Sensor device) sitagliptin phosphate 100 mg 100 mg PO DAILY 90 days #90 tabs 10/22/23 tablet (Januvia) metformin 1,000 mg tablet 1,000 mg PO BID 90 days #180 tabs 02/11/24 ipratropium 0.5 mg-albuterol 3 mg 3 ml inhalation Q6H PRN shortness 03/04/24 (2.5 mg base)/3 mL nebulization of breath or wheezing #90 mL soln hydrocodone 7.5 mg-acetaminophen 7.5 tab PO Q6H PRN pain 30 days 03/09/24 325 mg tablet #90 tabs atorvastatin 80 mg tablet (Lipitor) 80 mg PO DAILY #30 tabs 03/22/24 insulin regular human 100 unit/mL 1 sliding scale dose SQ 04/27/24 injection solution (Humulin R USEASDIRECTD #10 mL Regular U-100 Insulin) insulin glargine 100 unit/mL (3 26 unit (0.26 mL) SQ HS #3 mL 06/28/24 mL) subcutaneous pen, sensor nicotine 21 mg/24 hr daily 1 patch transdermal DAILY #28 ea 07/13/24 transdermal patch amlodipine 10 mg tablet (Norvasc) 10 mg PO DAILY #30 tabs 07/20/24 blood-glucose meter,continuous #1 ea 07/26/24 (Dexcom G7 Forensic Audit Expert) blood-glucose sensor (Dexcom G7 #1 ea 07/26/24 Sensor device) flash glucose sensor (FreeStyle #2 ea 07/26/24 Mayuri 14 Day Sensor kit) insulin pump cart,auto,BT,G6/7 #5 ea 07/26/24 (Omnipod 5 G6-G7 Pods (Gen 5) subcutaneous cartridge) pantoprazole 40 mg tablet,delayed See Rx Instructions .Route 08/02/24 release .COMPLEX #90 tabs promethazine 12.5 mg tablet 12.5 mg PO TID PRN nausea and 08/03/24 vomiting #60 tabs levetiracetam 750 mg tablet 750 mg PO BID 90 days #180 tabs 08/09/24 (Keppra) gabapentin 800 mg tablet 800 mg PO TID 30 days #90 tabs 08/25/24 methylnaltrexone 150 mg tablet 450 mg (3 x 150 mg) PO DAILY #90 09/06/24 tabs ticagrelor 90 mg tablet (Brilinta) See Rx Instructions .Route 09/06/24 .COMPLEX #60 tabs bisacodyl 10 mg rectal suppository 10 mg UT DAILY PRN constipation 09/22/24 (Dulcolax (bisacodyl)) #12 ea bisacodyl 5 mg tablet (Laxative 5 mg PO HS 2 days #2 tabs 09/22/24 (bisacodyl)) polyethylene glycol 3350 17 17 g PO DAILY #510 grams 09/22/24 gram/dose oral powder (Miralax) carvedilol 12.5 mg tablet See Rx Instructions .Route 09/23/24 .COMPLEX #180 tabs lidocaine 5 % topical patch See Rx Instructions topical 10/05/24 .COMPLEX #15 ea methocarbamol 500 mg tablet 500 mg PO TID PRN muscle spasm #20 10/05/24 tabs Allergies Allergy/AdvReac Type Severity Reaction Status Date / Time No Known Allergies Allergy Verified 08/25/24 09:[address] [facility] Disclaimer: The information contained in this section may have been updated after the patient was seen, as this information can be updated by other users. Medical History History of stroke AAA (abdominal aortic aneurysm) residential use of drug Dyspnea Encounter for pre-operative cardiovascular clearance Diabetes 1.5, managed as type 1 CAD (coronary artery disease) Surgical History S/P AAA repair Hx of CABG Social History Smoking Status: Current every day smoker tobacco type: cigarettes packs per day: 1 second hand exposure: No alcohol intake: never substance use type: denies use current occupational status: disabled Travel in the last 8 weeks: None household members: family housing: house current occupational exposures/hazards: No caffeine: Yes Have you lived/traveled outside [place] in past 30 days?: No Contact w/someone who lives/traveled outside [place] past 30 days?: No Exposure to someone with infectious disease in past 14 days?: No Do you have a fever (greater than 100.4 F or 38 C)?: No Have you tested positive for COVID-19: No Exposed to someone with COVID-19 in past 14 days?: No Do you have a sore throat?: No Do you have a cough?: No Do you have any weakness?: No Do you have any diarrhea?: No Are you experiencing any unusual bleeding?: No Do you have any muscle aches/pain?: No Do you have any abdominal pain?: No Are you experiencing loss of taste or smell?: No Other Medical History Have you received the Flu Vaccine for this season: No Have you received the Pneumonia Vaccine: Yes ROS Obtained: Yes Systems reviewed as appropriate & no additional complaints except as documented Per HPI Physical Exam General General appearance: alert and in no apparent distress Head Head exam: atraumatic and normocephalic Eye Eye exam: Present PERRL and EOMI ENT ENT exam: Present mucous membranes moist Neck Neck exam: Present normal inspection and full ROM Chest Chest inspection: Present symmetric chest wall rise and tenderness (Patient has mild tenderness to palpation without crepitus or deformity over the left low lateral ribs and left low anterior lateral ribs) Respiratory Respiratory exam: Present normal lung sounds bilaterally; Absent respiratory distress, wheezes or stridor Cardiovascular Cardiovascular exam: Present regular rate and normal rhythm Abdominal Exam Abdominal exam: Present soft; Absent distention, tenderness, guarding or rebound Comment: Patient reports some radiation of discomfort into the left upper quadrant area of the abdomen but on palpation there is no reproducible pain, there is no evidence of hernia, no bulging, no defect appreciated in the abdominal wall, no overlying skin changes, no bruising Extremities Exam Extremities exam: Present full ROM Neurological Exam Neurological exam: Present alert and oriented X3; Absent motor sensory deficit Psychiatric Psychiatric exam: Present normal affect and normal mood Skin Skin exam: Present warm and dry Medical Decision Making Medical Records Medical records reviewed: Yes I reviewed the patient's medical records. Screening: Per USPSTF and CDC recommendations, given the prevalence of disease in our region, it is our hospital?s policy to screen for HIV and viral Hepatitis for all patients aged 18 and over and those with ongoing risk factors. MR Comment: I reviewed most recent cardiology note with Ramyamicky Dempsey from August 09, 2024. Echo was reviewed demonstrating normal biventricular systolic function no significant valvular stenosis or regurgitation. Plan to continue current medications and follow-up again in 3 months. Paresh Inquiry Pt receiving controlled substance: No Vital Signs: 10/04/24 22:44 10/05/24 00:08 10/05/24 00:12 Temperature 98.3 F 98.0 F 98.0 F Temperature Source Oral Oral Oral Pulse Rate 71 75 Pulse Rate [Right] 81 Respiratory Rate 18 20 17 Blood Pressure 118/69 135/65 Blood Pressure [Right Arm] 148/76 H Blood Pressure Mean [Right Arm] 100 Blood Pressure Source Automatic Cuff Blood Pressure Source [Right Arm] Automatic Cuff Blood Pressure Position Sitting Blood Pressure Position [Right Arm] Sitting 02 Sat by Pulse Oximetry 98 Oxygen Delivery Method Room Air Room Air Room Air Orders (Tests/Meds): ED MEDICATIONS Discontinued Medications Generic Name Dose Route Start Last Admin Trade Name Freq PRN Reason Stop Dose Admin Lidocaine 1 each 10/04/24 23:03 10/04/24 23:08 Lidocaine 5% Transdermal Patch TD 10/04/24 23:04 1 each ONCE ONE Administration Methocarbamol 500 mg 10/04/24 23:04 10/04/24 23:08 Methocarbamol 500mg Tablet PO 10/04/24 23:05 500 mg ONCE ONE Administration ORDERS Category Date Time Status XR ribs LT min 3V w CXR1V Stat Exams 10/04/24 23:03 Completed Medical Decision Narrative: In summary, this 69-year-old male with comorbidities described in HPI which may not be at goal therapy presents to the emergency department today with concerns of left side pain. On initial evaluation patient is hemodynamically stable, afebrile, he is more than 24 hours since the time of the incident which is reassuring that he continues to have normal hemodynamics and vitals. Physical exam is notable for tenderness to palpation of the left lower lateral and anterior lateral ribs with some radiation into the left upper quadrant of the abdomen but the abdominal exam is benign. Cardiopulmonary exam benign. No external findings of trauma. Differential diagnosis includes but is not limited to muscle spasm, costochondritis, rib fracture, I considered the possibility of injury to the organs within the left upper quadrant but have very low suspicion for this since patient did not fall and is hemodynamically stable. If he did sustain injury to the spleen, stomach, or intestines of the left upper quad I would have anticipated hemodynamic instability or reproducible pain with abdominal exam.. I also do not appreciate evidence of hernias though this was considered. Based on these concerns, I ordered left rib series. Patient received lidocaine patch and methocarbamol. He had taken narcotic pain medication prior to arrival. X-ray imaging was personally interpreted and I do not appreciate displaced rib fracture or acute pulmonary pathology. See radiology read for final interpretation. On reassessment patient continues to be stable, reports pain to be slightly improved. He was able to pull 1500 and above on incentive spirometry which is reassuring since he stated taking deep breaths had been exacerbating his pain I wanted to make sure he was able to get good lung volumes. I believe he is appropriate for discharge. I prescribed lidocaine patch and methocarbamol for outpatient management. He was given instructions on using the incentive spirometer regularly. Patient was given instructions on symptomatic management, follow up instructions, and return precautions for the emergency department. Patient indicated understanding and was discharged in stable condition. Critical Care Critical Care Time Critical Care Time: No
--- NOTE | 2024-10-04 23:03 | XR_ITS ---
PROCEDURE INFORMATION: Exam: XR Left Ribs with PA Chest Exam date and time: 10/04/2024 11:05 PM Age: 69 years old Clinical indication: Chest wall pain; Left; Additional info: L lateral rib area popping yesterday, pain today TECHNIQUE: Imaging protocol: Radiologic exam of the left ribs with PA chest. Views: 3 views COMPARISON: CT ABDOMEN PELVIS WO CON 08/04/2023 1:38 PM FINDINGS: Tubes, catheters and devices: Sternal wires, surgical clips and ostial markers present. Lungs: Unremarkable. No consolidation. Pleural spaces: Unremarkable. No pleural effusion. No pneumothorax. Heart/Mediastinum: Unremarkable. No cardiomegaly. Bones/joints: Unremarkable. IMPRESSION: No acute disease.
[2024-10-04] MEDS: METHOCARBAMOL 500MG TABLET 500 MG PO (23:08)
[2024-10-04] MEDS: LIDOCAINE 5% TRANSDERMAL PATCH 1 EACH TD (23:08)
[2024-10-05 00:08] VITALS: BP 118/69; PULSE 71; RESP 20; TEMP 36.7; O2SAT 97
[2024-10-05 00:12] VITALS: BP 135/65; PULSE 75; RESP 17; TEMP 36.7; O2SAT 94
== END 2024-10-05 00:13 | disposition home or self-care (01) ==
PROVIDERS: Emergency Provider Emergency Medicine; PCP Internal Medicine
DX: R07.81 Pleurodynia (principal); F17.210 Nicotine dependence, cigarettes, uncomplicated; Z79.899 Other long term (current) drug therapy
CPT/HCPCS: 71101; 99283

== ENCOUNTER 2024-10-07 08:06 | Emergency (ER) | payer MEDICARE, SELFPAY ==
[2024-10-07 08:15] VITALS: BP 161/77; PULSE 80; RESP 19; TEMP 36.5; O2SAT 98; BMI 30.7
--- NOTE | 2024-10-07 08:19 | PC.NURSE ---
dr harper at bedside
--- NOTE | 2024-10-07 08:20 | XR_ITS ---
FINAL REPORT CLINICAL HISTORY: cough congestion FINDINGS: No acute pulmonary density is evident. There is no evidence of effusion or other pleural disease. Patient is status post CABG. The cardiac silhouette is unremarkable. IMPRESSION: No new findings. Reviewed, Interpreted and Dictated by Jose Casey MD Transcribed by Mis Ochoa Authenticated and [facility]
--- NOTE | 2024-10-07 08:21 | ED_ITS ---
Discharge Plan Disposition Patient Disposition: Home, Self-Care Prescriptions Prescriptions: New doxycycline hyclate 100 mg capsule 100 mg PO BID 7 Days Qty: 14 0RF prednisone 50 mg tablet 50 mg PO DAILY 5 Days Qty: 5 0RF ipratropium-albuterol 0.5 mg-3 mg(2.5 mg base)/3 mL solution for nebulization 3 ml inhalation Q20M PRN (Reason: shortness of breath or wheezing) Qty: 90 0RF Rx Instructions: for 3 doses No Action Januvia 100 mg tablet 100 mg PO DAILY 90 Days Qty: 90 4RF hydrocodone-acetaminophen 7.5-325 mg tablet 7.5 tab PO Q6H PRN (Reason: pain) 30 Days Qty: 90 0RF insulin glargine 100 unit/mL (3 mL) insulin pen, sensor 26 unit SQ HS Qty: 3 2RF gabapentin 800 mg tablet 800 mg PO TID 30 Days Qty: 90 2RF promethazine 12.5 mg tablet 12.5 mg PO TID PRN (Reason: nausea and vomiting) Qty: 60 3RF aspirin 81 mg tablet,delayed release (DR/EC) 81 mg PO DAILY Qty: 90 0RF (DME) FreeStyle Mayuri 14 Day [place]ley Misc See Rx Instructions MISCELLANE .MEDSUPPLY Qty: 1 0RF Rx Instructions: As directed metformin 1,000 mg tablet 1,000 mg PO BID 90 Days Qty: 180 4RF ipratropium-albuterol 0.5 mg-3 mg(2.5 mg base)/3 mL solution for nebulization 3 ml inhalation Q6H PRN (Reason: shortness of breath or wheezing) Qty: 90 0RF (DME) pen needle, diabetic [BD Ultra-Fine Gayatri Pen Needle] 32 gauge x 5/32 needle See Rx Instructions .ROUTE .MEDSUPPLY Qty: 1200 Rx Instructions: As directed atorvastatin [Lipitor] 80 mg tablet 80 mg PO DAILY Qty: 30 2RF Humulin R Regular U-100 Insuln 100 unit/mL solution 1 sliding scale dose SQ USEASDIRECTD Qty: 10 2RF nicotine 21 mg/24 hr patch 24 hour 1 patch transdermal DAILY Qty: 28 2RF amlodipine [Norvasc] 10 mg tablet 10 mg PO DAILY Qty: 30 5RF lisinopril 10 mg tablet See Rx Instructions .ROUTE .COMPLEX Qty: 90 0RF Dose Instruction: TAKE 1 TABLET BY MOUTH ONCE DAILY Rx Instructions: TAKE 1 TABLET BY MOUTH ONCE DAILY (DME) 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 See Rx Instructions .Route Qty: 1 0RF Rx Instructions: As directed ferrous gluconate 324 mg (38 mg iron) tablet 324 mg PO TID 30 Days Qty: 90 3RF (DME) Dexcom G7 Sensor Device See Rx Instructions .Route Qty: 3 2RF Rx Instructions: As directed (DME) FreeStyle Mayuri 14 Day Sensor Kit See Rx Instructions .ROUTE .COMPLEX Qty: 2 2RF Dose Instruction: CHANGE EVERY 14 DAYS Rx Instructions: CHANGE EVERY 14 DAYS (DME) Dexcom G7 Sensor Device See Rx Instructions .Route Qty: 1 6RF Rx Instructions: As directed (DME) 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 See Rx Instructions .Route Qty: 1 6RF Rx Instructions: As directed ([facility]) Omnipod 5 G6-G7 Pods (Gen 5) Cartridge See Rx Instructions .Route Qty: 5 2RF Rx Instructions: As directed pantoprazole 40 mg tablet,delayed release (DR/EC) See Rx Instructions .ROUTE .COMPLEX Qty: 90 0RF Dose Instruction: TAKE ONE TABLET BY MOUTH EVERY DAY FOR REFLUX/ACID REFLUX Rx Instructions: TAKE ONE TABLET BY MOUTH EVERY DAY FOR REFLUX/ACID REFLUX levetiracetam [Keppra] 750 mg tablet 750 mg PO BID 90 Days Qty: 180 3RF Brilinta 90 mg tablet See Rx Instructions .ROUTE .COMPLEX Qty: 60 0RF Dose Instruction: TAKE 1 TABLET BY MOUTH EVERY 12 HOURS Rx Instructions: TAKE 1 TABLET BY MOUTH EVERY 12 HOURS methylnaltrexone 150 mg tablet 450 mg PO DAILY Qty: 90 1RF bisacodyl [Dulcolax (bisacodyl)] 10 mg suppository 10 mg AR DAILY PRN (Reason: constipation) Qty: 12 2RF polyethylene glycol 3350 [Miralax] 17 gram/dose powder 17 g PO DAILY Qty: 510 1RF Laxative (bisacodyl) 5 mg tablet 5 mg PO HS 2 Days Qty: 2 1RF carvedilol 12.5 mg tablet See Rx Instructions .ROUTE .COMPLEX Qty: 180 0RF Dose Instruction: TAKE 1 TABLET BY MOUTH TWICE DAILY - MUST ADMINISTER WITH A MEAL/FOOD Rx Instructions: TAKE 1 TABLET BY MOUTH TWICE DAILY - MUST ADMINISTER WITH A MEAL/FOOD lidocaine 5 % adhesive patch,medicated See Rx Instructions .ROUTE .COMPLEX Qty: 15 0RF Rx Instructions: Apply 1 patch to the most painful area and leave on for 12 hours. Remove and leave off for 12 hours before using a new patch methocarbamol 500 mg tablet 500 mg PO TID PRN (Reason: muscle spasm) Qty: 20 0RF Referrals Follow up/Referrals: Robert Reilly MD [Primary Care Provider] - See instructions Activity Restrictions/Add. Instructions Additional Instructions/Restrictions: At this time it was felt you are safe to be discharged home. If new or worsening symptoms please do not hesitate to return the emergency department. Please follow-up with your family doctor within the next few days or early next week to ensure things are headed in the right direction. Keep good track of your sugars at home in the meantime. If your sugar consistently stays above 400 despite your medications present to the emergency department or your family doctor. Clinical Impressions Clinical Impression: Pneumonia Print Language Print Language: Colombian Discharge ED Provider: Mikel Lopez HPI General Chief Complaint: Upper Respiratory Infection Stated Complaint: congestion, cough Time Seen by Provider: 10/07/24 08:15 History of Present Illness HPI narrative: Patient is 61-year-old male with past medical history of coronary artery disease, coronary artery disease status post stenting, previous stroke without residual, chronic smoker who presents emergency department for evaluation of cough and congestion. Onset was acute over the last 24 to 48 hours. Patient was seen earlier this week for a suspected pulled muscle which is muscle relaxers are helping. No chest pain reported. No other acute complaints at this time. Please note that above description of symptoms, in this electronic medical record under categorization of recalled from ER triage doctor by RN are reflective of an initial nursing assessment, however, is not reflective of my full history and physical exam that was personally taken and clarified. Consequentially, this preceding description of symptoms, which may include the patient's categorized chief complaint in the EMR, do not reflect my personal clinical impression, and the ultimate description of history of present illness and patient stated complaints should be deferred to this section of the note. Unless stated otherwise or congruent with this section of the note, additional signs, symptoms, or incongruence should be interpreted as inaccurate with my clinical impression. Related Data Home Medications ?Medication ?Instructions ?Recorded ?Confirmed pen needle, diabetic 32 gauge x #1,200 ea 03/22/24 08/25/24 (BD Ultra-Fine Gayatri Pen Needle) Previous Rx's ?Medication ?Instructions ?Recorded aspirin 81 mg tablet,delayed 81 mg PO DAILY Blood thinner #90 05/28/21 release tabs flash glucose scanning reader #1 ea 08/15/21 (FreeStyle Mayuri 14 Day [place]) lisinopril 10 mg tablet See Rx Instructions .Route 08/21/23 .COMPLEX #90 tabs blood-glucose meter,continuous #1 ea 08/27/23 (Dexcom G7 [employer]) ferrous gluconate 324 mg (38 mg 324 mg PO TID 30 days #90 tabs 10/03/23 iron) tablet blood-glucose sensor (Dexcom G7 #3 ea 10/13/23 Sensor device) sitagliptin phosphate 100 mg 100 mg PO DAILY 90 days #90 tabs 10/22/23 tablet (Januvia) metformin 1,000 mg tablet 1,000 mg PO BID 90 days #180 tabs 02/11/24 ipratropium 0.5 mg-albuterol 3 mg 3 ml inhalation Q6H PRN shortness 03/04/24 (2.5 mg base)/3 mL nebulization of breath or wheezing #90 mL soln hydrocodone 7.5 mg-acetaminophen 7.5 tab PO Q6H PRN pain 30 days 03/09/24 325 mg tablet #90 tabs atorvastatin 80 mg tablet (Lipitor) 80 mg PO DAILY #30 tabs 03/22/24 insulin regular human 100 unit/mL 1 sliding scale dose SQ 04/27/24 injection solution (Humulin R USEASDIRECTD #10 mL Regular U-100 Insulin) insulin glargine 100 unit/mL (3 26 unit (0.26 mL) SQ HS #3 mL 06/28/24 mL) subcutaneous pen, sensor nicotine 21 mg/24 hr daily 1 patch transdermal DAILY #28 ea 07/13/24 transdermal patch amlodipine 10 mg tablet (Norvasc) 10 mg PO DAILY #30 tabs 07/20/24 blood-glucose meter,continuous #1 ea 07/26/24 (Dexcom G7 [employer]) blood-glucose sensor (Dexcom G7 #1 ea 07/26/24 Sensor device) flash glucose sensor (FreeStyle #2 ea 07/26/24 Amyuri 14 Day Sensor kit) insulin pump cart,auto,BT,G6/7 #5 ea 07/26/24 (Omnipod 5 G6-G7 Pods (Gen 5) subcutaneous cartridge) pantoprazole 40 mg tablet,delayed See Rx Instructions .Route 08/02/24 release .COMPLEX #90 tabs promethazine 12.5 mg tablet 12.5 mg PO TID PRN nausea and 08/03/24 vomiting #60 tabs levetiracetam 750 mg tablet 750 mg PO BID 90 days #180 tabs 08/09/24 (Keppra) gabapentin 800 mg tablet 800 mg PO TID 30 days #90 tabs 08/25/24 methylnaltrexone 150 mg tablet 450 mg (3 x 150 mg) PO DAILY #90 09/06/24 tabs ticagrelor 90 mg tablet (Brilinta) See Rx Instructions .Route 09/06/24 .COMPLEX #60 tabs bisacodyl 10 mg rectal suppository 10 mg AR DAILY PRN constipation 09/22/24 (Dulcolax (bisacodyl)) #12 ea bisacodyl 5 mg tablet (Laxative 5 mg PO HS 2 days #2 tabs 09/22/24 (bisacodyl)) polyethylene glycol 3350 17 17 g PO DAILY #510 grams 09/22/24 gram/dose oral powder (Miralax) carvedilol 12.5 mg tablet See Rx Instructions .Route 09/23/24 .COMPLEX #180 tabs lidocaine 5 % topical patch See Rx Instructions topical 10/05/24 .COMPLEX #15 ea methocarbamol 500 mg tablet 500 mg PO TID PRN muscle spasm #20 10/05/24 tabs doxycycline hyclate 100 mg capsule 100 mg PO BID Pneumonia 7 days #14 10/07/24 caps ipratropium 0.5 mg-albuterol 3 mg 3 ml inhalation Q20M PRN shortness 10/07/24 (2.5 mg base)/3 mL nebulization of breath or wheezing #90 mL soln prednisone 50 mg tablet 50 mg PO DAILY 5 days #5 tabs 10/07/24 Allergies Allergy/AdvReac Type Severity Reaction Status Date / Time No Known Allergies Allergy Verified 08/25/24 09:25 [facility] Disclaimer: The information contained in this section may have been updated after the patient was seen, as this information can be updated by other users. 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 Dyspnea Encounter for pre-operative cardiovascular clearance Diabetes 1.5, managed as type 1 CAD (coronary artery disease) Surgical History S/P AAA repair Hx of CABG Social History Smoking Status: Current every day smoker tobacco type: cigarettes packs per day: 1 second hand exposure: No alcohol intake: never substance use type: denies use current occupational status: disabled Travel in the last 8 weeks: None household members: family housing: house current occupational exposures/hazards: No caffeine: Yes Have you lived/traveled outside [place] in past 30 days?: No Contact w/someone who lives/traveled outside [place] past 30 days?: No Exposure to someone with infectious disease in past 14 days?: No Do you have a fever (greater than 100.4 F or 38 C)?: No Have you tested positive for COVID-19: No Exposed to someone with COVID-19 in past 14 days?: No Do you have a sore throat?: No Do you have a cough?: Yes Do you have any weakness?: No Do you have any diarrhea?: No Are you experiencing any unusual bleeding?: No Do you have any muscle aches/pain?: No Do you have any abdominal pain?: No Are you experiencing loss of taste or smell?: No Other Medical History Have you received the Flu Vaccine for this season: No Have you received the Pneumonia Vaccine: Yes ROS Obtained: Yes Systems reviewed as appropriate & no additional complaints except as documented Physical Exam General General appearance: alert and in no apparent distress Head Head exam: atraumatic and normocephalic Eye Eye exam: Present PERRL and EOMI ENT ENT exam: Present mucous membranes moist Neck Neck exam: Present normal inspection Chest Chest inspection: Present normal inspection and symmetric chest wall rise Respiratory Respiratory exam: Present normal lung sounds bilaterally; Absent respiratory distress or wheezes Cardiovascular Cardiovascular exam: Present regular rate and normal rhythm Abdominal Exam Abdominal exam: Present soft Extremities Exam Extremities exam: Present normal inspection Neurological Exam Neurological exam: Present alert; Absent motor sensory deficit Psychiatric Psychiatric exam: Present normal affect Skin Skin exam: Present warm and dry HEART Score HEART Score HEART Score assessment performed?: No Critical Care Critical Care Time Critical Care Time: No Medical Decision Making Paresh Inquiry Pt receiving controlled substance: No Vital Signs Vital Signs: 10/07/24 08:15 Temperature 97.7 F Temperature Source Oral Pulse Rate [Right] 80 Respiratory Rate 19 Blood Pressure [Right Arm] 161/77 H Blood Pressure Mean [Right Arm] 105 Blood Pressure Source [Right Arm] Automatic Cuff 02 Sat by Pulse Oximetry 98 Oxygen Delivery Method Room Air Response Orders (Tests/Meds): ED MEDICATIONS Generic Name Dose Route Start Last Admin Trade Name Freq PRN Reason Stop Dose Admin Albuterol Sulfate 3 puff 10/07/24 08:21 Albuterol-Hfa 90mcg/Puff Inhaler 8gm IH 11/06/24 08:20 Q3HP PRN Shortness Of Breath Discontinued Medications Generic Name Dose Route Start Last Admin Trade Name Freq PRN Reason Stop Dose Admin Miscellaneous 1 unit 10/07/24 08:21 Aerochamber/Optihaler MC 10/07/24 08:22 ONCE ONE ORDERS Category Date Time Status CXR 2 view (NOT portable) [XR chest 2V] Stat Exams 10/07/24 08:20 Taken Rapid PCR Covid and Flu A/B Stat Lab 10/07/24 08:24 Received MDM Narrative Medical Decision Narrative: In summary patient is a 69-year-old male past medical history described above who presents emergency department for evaluation of cough congestion. Patient is hemodynamically stable nontoxic-appearing upon arrival, afebrile. Patient is a smoker however has no oxygen use at baseline and is largely clear to auscultation all lung lugo no significant work of breathing. I suspect this is a mild viral exacerbation of his underlying chronic lung disease. Workup with hematologic labs was considered but given history and physical exam will be deferred at this time. Limited workup will be conducted with two-view chest x- ray and viral swab. Initial inventions include prednisone. Metered-dose inhaler will be given since he does not have one at home but I do not think he needs DuoNebs or magnesium at this time given that his lungs are clear to auscultation. Fingerstick blood glucose is 330 upon further questioning patient drank sugar water for a sugar of 190 this morning because he thought it was low. Given that he is not tachycardic no significant shortness of breath no abdominal pain and sugar was 190 just prior to arrival have no concerns for DKA at this time and workup with hematologic labs will be deferred. Chest x-ray informally interpreted by me, questionable opacities on the right lower lobe compared to the left given high risk for deterioration the benefits of antibiotics outweigh the risk at this point he will be treated with doxycycline twice daily. Patient will be called in prescription for doxycycline, steroids, albuterol ipratropium nebulizer refills given that he is out at home. He was given return precautions verbalized understanding.
[2024-10-07 08:27] LABS: Coronavirus 19, PCR Not Detected (NotDetected); Influenza A, PCR Not Detected (NotDetected); Influenza B, PCR Not Detected (NotDetected)
[2024-10-07] MEDS: AEROCHAMBER/OPTIHALER 1 UNIT MC (08:42)
[2024-10-07] MEDS: ALBUTEROL-HFA 90MCG/PUFF INHALER 8GM 3 PUFF IH (08:42)
[2024-10-07 08:45] VITALS: BP 155/72; PULSE 74; RESP 20; TEMP 36.5; O2SAT 97
== END 2024-10-07 08:50 | disposition home or self-care (01) ==
PROVIDERS: Emergency Provider Emergency Medicine; PCP Family Medicine
DX: J18.9 Pneumonia, unspecified organism (principal); E11.65 Type 2 diabetes mellitus with hyperglycemia; F17.210 Nicotine dependence, cigarettes, uncomplicated
CPT/HCPCS: 99283; 71046; 87636

== ENCOUNTER 2024-10-12 08:36 | Emergency (ER) | payer MEDICARE, SELFPAY ==
--- NOTE | 2024-10-12 08:39 | HMH.EDGENADL ---
Discharge Plan Disposition Patient Disposition: Home, Self-Care Condition: Good Prescriptions Prescriptions: New lidocaine 5 % ointment 1 applic topical TID PRN (Reason: pain) 4 Days Qty: 30 0RF cyclobenzaprine 5 mg tablet 5 mg PO BID PRN (Reason: muscle spasm) 7 Days Qty: 14 0RF Discontinued lidocaine 5 % adhesive patch,medicated See Rx Instructions .ROUTE .COMPLEX Qty: 15 0RF Rx Instructions: Apply 1 patch to the most painful area and leave on for 12 hours. Remove and leave off for 12 hours before using a new patch methocarbamol 500 mg tablet 500 mg PO TID PRN (Reason: muscle spasm) Qty: 20 0RF No Action Januvia 100 mg tablet 100 mg PO DAILY 90 Days Qty: 90 4RF hydrocodone-acetaminophen 7.5-325 mg tablet 7.5 tab PO Q6H PRN (Reason: pain) 30 Days Qty: 90 0RF insulin glargine 100 unit/mL (3 mL) insulin pen, sensor 26 unit SQ HS Qty: 3 2RF gabapentin 800 mg tablet 800 mg PO TID 30 Days Qty: 90 2RF promethazine 12.5 mg tablet 12.5 mg PO TID PRN (Reason: nausea and vomiting) Qty: 60 3RF promethazine-DM 6.25-15 mg/5 mL syrup 5 ml PO Q4-6H PRN (Reason: cough) Qty: 118 0RF aspirin 81 mg tablet,delayed release (DR/EC) 81 mg PO DAILY Qty: 90 0RF (DME) FreeStyle Mayuri 14 Day [place] Misc See Rx Instructions MISCELLANE .MEDSUPPLY Qty: 1 0RF Rx Instructions: As directed metformin 1,000 mg tablet 1,000 mg PO BID 90 Days Qty: 180 4RF (DME) pen needle, diabetic [BD Ultra-Fine Gayatri Pen Needle] 32 gauge x 5/32 needle See Rx Instructions .ROUTE .MEDSUPPLY Qty: 1200 Rx Instructions: As directed atorvastatin [Lipitor] 80 mg tablet 80 mg PO DAILY Qty: 30 2RF Humulin R Regular U-100 Insuln 100 unit/mL solution 1 sliding scale dose SQ USEASDIRECTD Qty: 10 2RF nicotine 21 mg/24 hr patch 24 hour 1 patch transdermal DAILY Qty: 28 2RF amlodipine [Norvasc] 10 mg tablet 10 mg PO DAILY Qty: 30 5RF (DME) Dexcom G7 Work Adjustment Instructor Misc See Rx Instructions .Route Qty: 1 0RF Rx Instructions: As directed (DME) Dexcom G7 Sensor Device See Rx Instructions .Route Qty: 3 2RF Rx Instructions: As directed (DME) FreeStyle Mayuri 14 Day Sensor Kit See Rx Instructions .ROUTE .COMPLEX Qty: 2 2RF Dose Instruction: CHANGE EVERY 14 DAYS Rx Instructions: CHANGE EVERY 14 DAYS (DME) Dexcom G7 Sensor Device See Rx Instructions .Route Qty: 1 6RF Rx Instructions: As directed (DME) Dexcom G7 Work Adjustment Instructor Misc See Rx Instructions .Route Qty: 1 6RF Rx Instructions: As directed ([facility] [place]) Omnipod 5 G6-G7 Pods (Gen 5) Cartridge See Rx Instructions .Route Qty: 5 2RF Rx Instructions: As directed pantoprazole 40 mg tablet,delayed release (DR/EC) See Rx Instructions .ROUTE .COMPLEX Qty: 90 0RF Dose Instruction: TAKE ONE TABLET BY MOUTH EVERY DAY FOR REFLUX/ACID REFLUX Rx Instructions: TAKE ONE TABLET BY MOUTH EVERY DAY FOR REFLUX/ACID REFLUX levetiracetam [Keppra] 750 mg tablet 750 mg PO BID 90 Days Qty: 180 3RF methylnaltrexone 150 mg tablet 450 mg PO DAILY Qty: 90 1RF bisacodyl [Dulcolax (bisacodyl)] 10 mg suppository 10 mg LA DAILY PRN (Reason: constipation) Qty: 12 2RF polyethylene glycol 3350 [Miralax] 17 gram/dose powder 17 g PO DAILY Qty: 510 1RF carvedilol 12.5 mg tablet See Rx Instructions .ROUTE .COMPLEX Qty: 180 0RF Dose Instruction: TAKE 1 TABLET BY MOUTH TWICE DAILY - MUST ADMINISTER WITH A MEAL/FOOD Rx Instructions: TAKE 1 TABLET BY MOUTH TWICE DAILY - MUST ADMINISTER WITH A MEAL/FOOD Brilinta 90 mg tablet See Rx Instructions .ROUTE .COMPLEX Qty: 60 0RF Dose Instruction: TAKE 1 TABLET BY MOUTH EVERY 12 HOURS Rx Instructions: TAKE 1 TABLET BY MOUTH EVERY 12 HOURS doxycycline hyclate 100 mg capsule 100 mg PO BID 7 Days Qty: 14 0RF prednisone 50 mg tablet 50 mg PO DAILY 5 Days Qty: 5 0RF ipratropium-albuterol 0.5 mg-3 mg(2.5 mg base)/3 mL solution for nebulization 3 ml inhalation Q20M PRN (Reason: shortness of breath or wheezing) Qty: 90 0RF Rx Instructions: for 3 doses lisinopril 20 mg tablet 20 mg PO DAILY Referrals Follow up/Referrals: Robert Reilly MD [Primary Care Provider] - See instructions Activity Restrictions/Add. Instructions Additional Instructions/Restrictions: As we discussed, it appears on your [id number] ultrasound that you have a rib fracture. These are typically difficult to detect on x-rays and thus it may have not been seen on your previous imaging. I prescribed a different muscle relaxant that you can try and prescribed a different formulation of lidocaine. You may need to purchase this [id number] if it is not covered by your insurance if you are able to do so. Please continue all your other medications and take Tylenol as needed however make sure you are not exceeding the maximum daily dose with your other pain medication that contains Tylenol or acetaminophen. Please return with any new or worsening symptoms. Clinical Impressions Clinical Impression: Closed rib fracture Print Language Print Language: Icelandic Discharge ED Provider: Jose Mcfarland General Adult HPI General Chief complaint: Upper Respiratory Infection Stated complaint: L side pain, SOB, Congestion Time Seen by Provider: 10/12/24 08:39 History of Present Illness HPI narrative: Please note that above description of symptoms, in this electronic medical record under categorization of recalled from ER triage doctor by RN are reflective of an initial nursing assessment, however, is not reflective of my full history and physical exam that was personally taken and clarified. Consequentially, this preceding description of symptoms, which may include the patient's categorized chief complaint in the EMR, do not reflect my personal clinical impression, and the ultimate description of history of present illness and patient stated complaints should be deferred to this section of the note. Unless stated otherwise or congruent with this section of the note, additional signs, symptoms, or incongruence should be interpreted as inaccurate with my clinical impression. Related Data Home Medications ?Medication ?Instructions ?Recorded ?Confirmed pen needle, diabetic 32 gauge x #1,200 ea 03/22/24 10/08/24 (BD Ultra-Fine Gayatri Pen Needle) lisinopril 20 mg tablet 20 mg PO DAILY 10/07/24 10/08/24 Previous Rx's ?Medication ?Instructions ?Recorded aspirin 81 mg tablet,delayed 81 mg PO DAILY Blood thinner #90 05/28/21 release tabs flash glucose scanning reader #1 ea 08/15/21 (FreeStyle Mayuri 14 Day [place]) blood-glucose meter,continuous #1 ea 08/27/23 (Dexcom G7 Work Adjustment Instructor) blood-glucose sensor (Dexcom G7 #3 ea 10/13/23 Sensor device) sitagliptin phosphate 100 mg 100 mg PO DAILY 90 days #90 tabs 10/22/23 tablet (Januvia) metformin 1,000 mg tablet 1,000 mg PO BID 90 days #180 tabs 02/11/24 hydrocodone 7.5 mg-acetaminophen 7.5 tab PO Q6H PRN pain 30 days 03/09/24 325 mg tablet #90 tabs atorvastatin 80 mg tablet (Lipitor) 80 mg PO DAILY #30 tabs 03/22/24 insulin regular human 100 unit/mL 1 sliding scale dose SQ 04/27/24 injection solution (Humulin R USEASDIRECTD #10 mL Regular U-100 Insulin) insulin glargine 100 unit/mL (3 26 unit (0.26 mL) SQ HS #3 mL 06/28/24 mL) subcutaneous pen, sensor nicotine 21 mg/24 hr daily 1 patch transdermal DAILY #28 ea 07/13/24 transdermal patch amlodipine 10 mg tablet (Norvasc) 10 mg PO DAILY #30 tabs 07/20/24 blood-glucose meter,continuous #1 ea 07/26/24 (Dexcom G7 Work Adjustment Instructor) blood-glucose sensor (Dexcom G7 #1 ea 07/26/24 Sensor device) flash glucose sensor (FreeStyle #2 ea 07/26/24 Mayuri 14 Day Sensor kit) insulin pump cart,auto,BT,G6/7 #5 ea 07/26/24 (Omnipod 5 G6-G7 Pods (Gen 5) subcutaneous cartridge) pantoprazole 40 mg tablet,delayed See Rx Instructions .Route 08/02/24 release .COMPLEX #90 tabs promethazine 12.5 mg tablet 12.5 mg PO TID PRN nausea and 08/03/24 vomiting #60 tabs levetiracetam 750 mg tablet 750 mg PO BID 90 days #180 tabs 08/09/24 (Keppra) gabapentin 800 mg tablet 800 mg PO TID 30 days #90 tabs 08/25/24 methylnaltrexone 150 mg tablet 450 mg (3 x 150 mg) PO DAILY #90 09/06/24 tabs bisacodyl 10 mg rectal suppository 10 mg LA DAILY PRN constipation 09/22/24 (Dulcolax (bisacodyl)) #12 ea polyethylene glycol 3350 17 17 g PO DAILY #510 grams 09/22/24 gram/dose oral powder (Miralax) carvedilol 12.5 mg tablet See Rx Instructions .Route 09/23/24 .COMPLEX #180 tabs doxycycline hyclate 100 mg capsule 100 mg PO BID Pneumonia 7 days #14 10/07/24 caps ipratropium 0.5 mg-albuterol 3 mg 3 ml inhalation Q20M PRN shortness 10/07/24 (2.5 mg base)/3 mL nebulization of breath or wheezing #90 mL soln prednisone 50 mg tablet 50 mg PO DAILY 5 days #5 tabs 10/07/24 promethazine-DM 6.25 mg-15 mg/5 mL 5 ml PO Q4-6H PRN cough #118 mL 10/08/24 oral syrup ticagrelor 90 mg tablet (Brilinta) See Rx Instructions .Route 10/08/24 .COMPLEX #60 tabs cyclobenzaprine 5 mg tablet 5 mg PO BID PRN muscle spasm 7 10/12/24 days #14 tabs lidocaine 5 % topical ointment 1 applic topical TID PRN pain 4 10/12/24 days #30 grams Allergies Allergy/AdvReac Type Severity Reaction Status Date / Time No Known Allergies Allergy Verified 10/08/24 14:30 [facility] Disclaimer: The information contained in this section may have been updated after the patient was seen, as this information can be updated by other users. 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 drug Dyspnea Encounter for pre-operative cardiovascular clearance Diabetes 1.5, managed as type 1 CAD (coronary artery disease) Surgical History S/P AAA repair Hx of CABG Social History (Updated 10/08/24 @ 14:32 by Massiel Saucedo RN) Smoking Status: Never smoker quit status: not considering quitting second hand exposure: No alcohol intake: never substance use type: denies use current occupational status: disabled Travel in the last 8 weeks: None household members: family housing: house current occupational exposures/hazards: No caffeine: Yes Other Medical History Have you received the Flu Vaccine for this season: No Have you received the Pneumonia Vaccine: Yes ROS Obtained: Yes other As per HPI Physical Exam General General appearance: alert and in no apparent distress Head Head exam: atraumatic and normocephalic Eye Eye exam: Present normal appearance Neck Neck exam: Present normal inspection Chest Chest inspection: Present normal inspection and symmetric chest wall rise Respiratory Respiratory exam: Present normal lung sounds bilaterally; Absent respiratory distress Cardiovascular Cardiovascular exam: Present regular rate and normal rhythm Abdominal Exam Abdominal exam: Present soft Neurological Exam Neurological exam: Present alert and oriented X3 Psychiatric Psychiatric exam: Present normal affect and normal mood Skin Skin exam: Present warm and dry Other Other exam information: Left-sided costal point tenderness to palpation Medical Decision Making Medical Records Medical records reviewed: Yes I reviewed the patient's medical records. Screening: Per USPSTF and CDC recommendations, given the prevalence of disease in our region, it is our hospital?s policy to screen for HIV and viral Hepatitis for all patients aged 18 and over and those with ongoing risk factors. Paresh Inquiry Pt receiving controlled substance: No Vital Signs: 10/12/24 08:46 10/12/24 09:01 10/12/24 09:16 Temperature 98.2 F Temperature Source Oral Pulse Rate 69 69 Pulse Rate [Left Radial] 71 Respiratory Rate 18 Blood Pressure 123/80 141/74 H Blood Pressure [Right Arm] 148/71 H Blood Pressure Mean [Right Arm] 96 Blood Pressure Source Blood Pressure Position 02 Sat by Pulse Oximetry 97 96 95 Oxygen Delivery Method Room Air Room Air 10/12/24 09:47 Temperature 98.0 F Temperature Source Oral Pulse Rate 69 Pulse Rate [Left Radial] Respiratory Rate 16 Blood Pressure 141/74 H Blood Pressure [Right Arm] Blood Pressure Mean [Right Arm] Blood Pressure Source Automatic Cuff Blood Pressure Position Sitting 02 Sat by Pulse Oximetry Oxygen Delivery Method Room Air Orders (Tests/Meds): ORDERS Category Date Time Status POCUS Point of Care (ER Only) Stat Exams 10/12/24 09:17 Completed Medical Decision Narrative: Patient with history and exam per above presenting for evaluation of rib pain, cough Diagnoses considered include occult rib fracture, pneumonia, among others. Low clinical index of suspicion based on history and physical exam for ACS, PE, dissection, no further workup indicated for these etiologies at this time ED workup and treatment included: Ashmk-ol-uwtu ultrasound rib which revealed cortical disruption consistent with isolated rib fracture. Patient is already taking muscle relaxers, NSAIDs, as needed opioid analgesia. He is otherwise nontoxic-appearing and has had been evaluated several times for similar complaints with clinical stability. I believe rib fracture was not easily detectable on prior x-ray imaging. I do believe that this is the primary cause of his ongoing complaints. I discussed my clinical impression with patient and answered all questions. At this time, the evidence for any other entities in the differential is insufficient to warrant any further testing or ED observation. This was explained to the patient. The patient was advised that persistent or worsening symptoms require further evaluation. Critical Care Critical Care Time Critical Care Time: No
[2024-10-12 08:46] VITALS: BP 148/71; PULSE 71; RESP 18; TEMP 36.8; O2SAT 97; BMI 32.1
--- NOTE | 2024-10-12 08:46 | ECG_ITS ---
APPROVED REPORT Exam: Resting ECG HR:68 bpm ECG Measurements Heart Rate 68 AXES DC 156 P 50 QRSd 112 QRS 11 QT 419 T 79 QTc 436 Conclusion SINUS RHYTHM MODERATE INTRAVENTRICULAR CONDUCTION DELAY [110+ ms QRS DURATION] Electronically signed by : CHELLE NICE, 10/12/2024 14:56:50
--- NOTE | 2024-10-12 08:50 | PC.NURSE ---
Patient refused swab, stated that he had one just a week ago and didnt think it was needed.
[2024-10-12 09:01] VITALS: BP 123/80; PULSE 69; O2SAT 96
[2024-10-12 09:16] VITALS: BP 141/74; PULSE 69; O2SAT 95
[2024-10-12 09:47] VITALS: BP 141/74; PULSE 69; RESP 16; TEMP 36.7; O2SAT 96
== END 2024-10-12 09:48 | disposition home or self-care (01) ==
PROVIDERS: Emergency Provider Emergency Medicine; PCP Family Medicine
DX: S22.32XA Fracture of one rib, left side, initial encounter for closed fracture (principal); R06.02 Shortness of breath; R07.81 Pleurodynia; X58.XXXA Exposure to other specified factors, initial encounter
CPT/HCPCS: 99284; 93005

== ENCOUNTER 2024-10-23 13:20 | Emergency (ER) | payer MEDICARE, SELFPAY ==
[2024-10-23] VITALS (9 sets, daily range): BP systolic 131–158; BP diastolic 71–83; PULSE 61–85; RESP 18–19; TEMP 36.6–36.7; O2SAT 98–100; BMI 32.1
[2024-10-23 13:31] LABS: Microscopic, Urine URINE MICROSCOPIC (MICROSCOPIC)
[2024-10-23 13:32] LABS: Appearance,Urine CLEAR (Clear); Bilirubin,Urine Negative (Negative); Blood, Urine 3+ (Negative); Color,Urine YELLOW (Yellow); Glucose,Urine (UA) 2+ (Negative); Ketones,Urine Negative (Negative); Leukocyte Esterase,Urine Negative (Negative); Nitrate,Urine Negative (Negative); Protein,Urine TRACE (Negative); Urobilinogen,Urine 0.2 EU/dl (0.2)
--- NOTE | 2024-10-23 13:41 | CT_ITS ---
PROCEDURE INFORMATION: Exam: CT Abdomen And Pelvis Without Contrast Exam date and time: 10/23/2024 2:15 PM Age: 69 years old Clinical indication: Other: Hematuria; Additional info: Hematuria. Aaa SX 2023 TECHNIQUE: Imaging protocol: Computed tomography of the abdomen and pelvis without contrast. Radiation optimization: All CT scans at this facility use at least one of these dose optimization techniques: automated exposure control; mA and/or kV adjustment per patient size (includes targeted exams where dose is matched to clinical indication); or iterative reconstruction. COMPARISON: CT ABDOMEN PELVIS WO CON 08/04/2023 1:38 PM FINDINGS: Limitations: Lack of intravenous contrast material limits sensitivity in detection and/or characterization of intra-abdominal pathology. Liver: Unremarkable. Gallbladder and biliary ducts: Gallbladder contains gallstones. No acute inflammatory changes. Pancreas: Unremarkable. Spleen: Unremarkable. Adrenal glands: Unremarkable. Kidneys and ureters: No renal or ureteral stones. No hydronephrosis. Non-contrast appearance of the kidneys is otherwise unremarkable. Stomach and bowel: Unremarkable. Appendix: No evidence of appendicitis. Intraperitoneal space: No free fluid. No pneumoperitoneum. Vasculature: Status post endovascular repair of abdominal aortic aneurysm with aortobiiliac stent graft. Of note, the superior margin of the graft overlaps with both main renal artery ostia and no main renal artery stents are present. Patency of graft and/or main renal arteries is indeterminate without intravenous contrast. Abdominal aortic aneurysm is stable in size measuring 6.1 cm in maximum diameter. Lymph nodes: Unremarkable. Urinary bladder: Unremarkable as visualized. Reproductive: Prostate size is within normal limits for age measuring 4.0 cm in transverse axis. Bones/joints: Severe degenerative osteoarthrosis in the right hip. Multi-level bridging or beaked disc osteophytes in the lower thoracic spine compatible with diffuse idiopathic skeletal hyperostosis (DISH). No evidence of acute osseous abnormality. Soft tissues: Unremarkable. IMPRESSION: 1. No evidence of upper or lower urinary tract abnormality to explain hematuria within the limits of this non-contrast enhanced exam. 2. Status post endovascular repair of abdominal aortic aneurysm with aortobiiliac stent graft. Of note, the superior margin of the graft overlaps with both main renal artery ostia and no main renal artery stents are present. Patency of graft and/or main renal arteries is indeterminate without intravenous contrast. 3. Abdominal aortic aneurysm is stable in size measuring 6.1 cm in maximum diameter. 4. Cholelithiasis without evidence of acute cholecystitis. 5. Severe degenerative osteoarthrosis in the right hip. 6. Diffuse idiopathic skeletal hyperostosis (DISH) in the lower thoracic spine.
[2024-10-23 13:45] LABS: Basophils # 0.1 K/mm3 (0-0.2); Basophils % 0.7 % (0.1-2.0); Eosinophils # 0.1 Kmm3 (0.0-0.4); Eosinophils % 1.4 % (0.1-12.0); Hematocrit 40.8 % (42.0-52.0); Hemoglobin 13.3 g/dL (14.1-18.0); Lymphocytes # 3.1 K/mm3 (0.7-4.5); Mean Corpuscular HGB Conc 32.6 g/dL (31.8-35.4); Mean Corpuscular Hemoglobin 29.3 pg (27.0-31.2); Mean Corpuscular Volume 89.9 fl (80-94); Mean Platelet Volume 9.3 fl (7.4-10.4); Monocytes # 0.6 K/mm3 (0.1-1.0); Monocytes % 6.3 % (1.7-9.3); Neutrophils # 6.1 K/mm3 (1.8-7.8); Neutrophils % 60.2 % (37.0-80.0); Nucleated Red Blood Cells # 0 10^3/uL; Nucleated Red Blood Cells % 0 %; Platelet Count 330 K/mm3 (142-424); Red Blood Count 4.54 M/mm3 (4.60-6.20); Red Cell Distribution Width 12.8 % (11.5-17.5); Red Cell Distribution Width-SD 41.9 fL
[2024-10-23 13:49] LABS: RBC,Urine TNTC #/hpf (0-3); WBC,Urine Occasional #/hpf (0-3)
[2024-10-23 13:50] LABS: Bacteria,Urine Trace /lpf
[2024-10-23 13:55] LABS: Activated Partial Thrombo Time 26.1 seconds (22.8-30.6); Prothrombin Time 10.2 seconds (10.1-12.5)
[2024-10-23 14:06] LABS: Albumin Level 3.7 g/dl (3.5-5.0); Chloride 103 mmol/L (98-107); Potassium 4.5 mmoL/L (3.5-5.1); Sodium 137 mmol/L (136-145)
[2024-10-23 14:08] LABS: Alanine Aminotransferase 15 U/L (12-78); Aspartate Amino Transferase 22 U/L (17-59); Blood Urea Nitrogen 11 mg/dl (9-20); Creatinine Clearance Estimated 102 mL/min (50-200); Estimated Glomerular Filt Rate 112 ml/min (>60); GFR (African American) 136 ML/MIN (>60)
--- NOTE | 2024-10-23 14:08 | ED_ITS ---
<Statement entered by Collin Renee MD - 10/29/24 19:43> I was consulted by the MINOR, and we discussed the complexity of the problems being addressed. I approved the treatment and management plan for this patient's care in the emergency department, thus performing a substantive portion of the medical decision making. Collin Renee MD, DEONDRE, FACEP Discharge Plan Disposition Patient Disposition: Home, Self-Care Condition: Good Prescriptions Prescriptions: No Action hydrocodone-acetaminophen 7.5-325 mg tablet 7.5 tab PO Q6H PRN (Reason: pain) 30 Days Qty: 90 0RF insulin glargine 100 unit/mL (3 mL) insulin pen, sensor 26 unit SQ HS Qty: 3 2RF gabapentin 800 mg tablet 800 mg PO TID 30 Days Qty: 90 2RF promethazine 12.5 mg tablet 12.5 mg PO TID PRN (Reason: nausea and vomiting) Qty: 60 3RF aspirin 81 mg tablet,delayed release (DR/EC) 81 mg PO DAILY Qty: 90 0RF metformin 1,000 mg tablet 1,000 mg PO BID 90 Days Qty: 180 4RF (DME) pen needle, diabetic [BD Ultra-Fine Gayatri Pen Needle] 32 gauge x 5/32 needle See Rx Instructions .ROUTE .MEDSUPPLY Qty: 1200 Rx Instructions: As directed nicotine 21 mg/24 hr patch 24 hour 1 patch transdermal DAILY Qty: 28 2RF amlodipine [Norvasc] 10 mg tablet 10 mg PO DAILY Qty: 30 5RF nystatin 100,000 unit/mL suspension 1 ml PO QID 7 Days Qty: 28 0RF Rx Instructions: swish and swallow Januvia 100 mg tablet 100 mg PO DAILY 90 Days Qty: 90 4RF atorvastatin [Lipitor] 80 mg tablet 80 mg PO DAILY Qty: 90 2RF Humulin R Regular U-100 Insuln 100 unit/mL solution 1 sliding scale dose SQ USEASDIRECTD Qty: 10 2RF (DME) Dexcom G7 Sensor Device See Rx Instructions .Route Qty: 1 6RF Rx Instructions: As directed (DME) Dexcom G7 Electrocardiograph Operator Misc See Rx Instructions .Route Qty: 1 6RF Rx Instructions: As directed (DME) Omnipod 5 G6-G7 Pods (Gen 5) Cartridge See Rx Instructions .Route Qty: 5 2RF Rx Instructions: As directed pantoprazole 40 mg tablet,delayed release (DR/EC) See Rx Instructions .ROUTE .COMPLEX Qty: 90 0RF Dose Instruction: TAKE ONE TABLET BY MOUTH EVERY DAY FOR REFLUX/ACID REFLUX Rx Instructions: TAKE ONE TABLET BY MOUTH EVERY DAY FOR REFLUX/ACID REFLUX levetiracetam [Keppra] 750 mg tablet 750 mg PO BID 90 Days Qty: 180 3RF bisacodyl [Dulcolax (bisacodyl)] 10 mg suppository 10 mg AK DAILY PRN (Reason: constipation) Qty: 12 2RF carvedilol 12.5 mg tablet See Rx Instructions .ROUTE .COMPLEX Qty: 180 0RF Dose Instruction: TAKE 1 TABLET BY MOUTH TWICE DAILY - MUST ADMINISTER WITH A MEAL/FOOD Rx Instructions: TAKE 1 TABLET BY MOUTH TWICE DAILY - MUST ADMINISTER WITH A MEAL/FOOD Brilinta 90 mg tablet See Rx Instructions .ROUTE .COMPLEX Qty: 60 0RF Dose Instruction: TAKE 1 TABLET BY MOUTH EVERY 12 HOURS Rx Instructions: TAKE 1 TABLET BY MOUTH EVERY 12 HOURS lisinopril 20 mg tablet 20 mg PO DAILY Qty: 90 3RF ipratropium-albuterol 0.5 mg-3 mg(2.5 mg base)/3 mL solution for nebulization 3 ml inhalation Q20M PRN (Reason: shortness of breath or wheezing) Qty: 90 0RF Rx Instructions: for 3 doses Referrals Follow up/Referrals: Rudy Pichardo MD [Staff Physician] - See instructions Robert Reilly MD [Primary Care Provider] - See instructions Activity Restrictions/Add. Instructions Additional Instructions/Restrictions: Return to the ED with any increased pain or bleeding. Please follow-up with your specialist as we discussed. Clinical Impressions Clinical Impression: Hematuria Instructions Patient Instructions: DI for Urinary Tract Infection (UTI), DI for Urinary Tract Infection in Children Print Language Print Language: Yakut Discharge ED Provider: Collin Renee General Adult HPI General Chief complaint: Urogenital-Male Stated complaint: Blood in urine Time Seen by Provider: 10/23/24 13:34 Mode of Arrival: Ambulatory Source of Information: Patient Description of Symptoms (Recalled from ER Triage Doc. by RN): pt presents to ED with c/o blood in urine. pt with stoke hx and does take blood thinners. pt reports blood in urine for the past week. History of Present Illness HPI narrative: This is a 69-year-old male presents to the ED today for complaint of blood in his urine for the past week. He just noticed it yesterday. He says it has been an off-color all week. No pain in his lower abdomen. He does have left-sided abdominal pain but he attributes this to his left rib fracture that he has had for the last month. He fell at [facility] off a cart trying to grab something. He has history of hypertension, heart surgery 89 and a stroke. He does take blood thinners, Brilinta. He also takes aspirin. Patient does not appear to be in any discomfort at this time. Related Data Home Medications ?Medication ?Instructions ?Recorded ?Confirmed pen needle, diabetic 32 gauge x #1,200 ea 03/22/24 10/22/24 (BD Ultra-Fine Gayatri Pen Needle) Previous Rx's ?Medication ?Instructions ?Recorded aspirin 81 mg tablet,delayed 81 mg PO DAILY Blood thinner #90 05/28/21 release tabs metformin 1,000 mg tablet 1,000 mg PO BID 90 days #180 tabs 02/11/24 hydrocodone 7.5 mg-acetaminophen 7.5 tab PO Q6H PRN pain 30 days 03/09/24 325 mg tablet #90 tabs insulin glargine 100 unit/mL (3 26 unit (0.26 mL) SQ HS #3 mL 06/28/24 mL) subcutaneous pen, sensor nicotine 21 mg/24 hr daily 1 patch transdermal DAILY #28 ea 07/13/24 transdermal patch amlodipine 10 mg tablet (Norvasc) 10 mg PO DAILY #30 tabs 07/20/24 blood-glucose sensor (Dexcom G7 #1 07/26/24 Sensor device) blood-glucose,chopping machine operator,cont #1 ea 07/26/24 (Dexcom G7 Electrocardiograph Operator) insulin pump cart,auto,BT,G6/7 #5 ea 07/26/24 (Omnipod 5 G6-G7 Pods (Gen 5) subcutaneous cartridge) pantoprazole 40 mg tablet,delayed See Rx Instructions .Route 08/02/24 release .COMPLEX #90 tabs promethazine 12.5 mg tablet 12.5 mg PO TID PRN nausea and 08/03/24 vomiting #60 tabs levetiracetam 750 mg tablet 750 mg PO BID 90 days #180 tabs 08/09/24 (Keppra) gabapentin 800 mg tablet 800 mg PO TID 30 days #90 tabs 08/25/24 bisacodyl 10 mg rectal suppository 10 mg AK DAILY PRN constipation 09/22/24 (Dulcolax (bisacodyl)) #12 ea carvedilol 12.5 mg tablet See Rx Instructions .Route 09/23/24 .COMPLEX #180 tabs ipratropium 0.5 mg-albuterol 3 mg 3 ml inhalation Q20M PRN shortness 10/07/24 (2.5 mg base)/3 mL nebulization of breath or wheezing #90 mL soln ticagrelor 90 mg tablet (Brilinta) See Rx Instructions .Route 10/08/24 .COMPLEX #60 tabs lisinopril 20 mg tablet 20 mg PO DAILY #90 tabs 10/15/24 atorvastatin 80 mg tablet (Lipitor) 80 mg PO DAILY #90 tabs 10/22/24 insulin regular human 100 unit/mL 1 sliding scale dose SQ 10/22/24 injection solution (Humulin R USEASDIRECTD #10 mL Regular U-100 Insulin) nystatin 100,000 unit/mL oral 1 ml PO QID 7 days #28 mL 10/22/24 suspension sitagliptin phosphate 100 mg 100 mg PO DAILY 90 days #90 tabs 10/22/24 tablet (Januvia) Allergies Allergy/AdvReac Type Severity Reaction Status Date / Time No Known Allergies Allergy Verified 10/22/24 09:10 [facility] Disclaimer: The information contained in this section may have been updated after the patient was seen, as this information can be updated by other users. 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 Dyspnea Encounter for pre-operative cardiovascular clearance Diabetes 1.5, managed as type 1 CAD (coronary artery disease) Surgical History S/P AAA repair Hx of CABG Social History (Updated 10/22/24 @ 09:13 by Annamaria Oh MA) Smoking Status: Current every day smoker tobacco type: cigarettes packs per day: 1 quit status: not considering quitting second hand exposure: No alcohol intake: never substance use type: denies use current occupational status: disabled Travel in the last 8 weeks: None household members: family housing: house current occupational exposures/hazards: No caffeine: Yes Have you lived/traveled outside [place] in past 30 days?: No Contact w/someone who lives/traveled outside US past 30 days?: No Exposure to someone with infectious disease in past 14 days?: No Do you have a fever (greater than 100.4 F or 38 C)?: No Have you tested positive for COVID-19: No Exposed to someone with COVID-19 in past 14 days?: No Do you have a sore throat?: No Do you have a cough?: No Do you have any weakness?: No Do you have any diarrhea?: No Are you experiencing any unusual bleeding?: No Do you have any muscle aches/pain?: No Do you have any abdominal pain?: No Are you experiencing loss of taste or smell?: No Other Medical History Have you received the Flu Vaccine for this season: No Have you received the Pneumonia Vaccine: Yes ROS Obtained: Yes Systems reviewed as appropriate & no additional complaints except as documented Constitutional Constitutional: Reports as per HPI Physical Exam General General appearance: alert and in no apparent distress Head Head exam: atraumatic and normocephalic Eye Eye exam: Present normal appearance, PERRL and EOMI ENT ENT exam: Present normal exam, normal oropharynx and mucous membranes moist Neck Neck exam: Present normal inspection, full ROM and trachea midline Respiratory Respiratory exam: Present normal lung sounds bilaterally Cardiovascular Cardiovascular exam: Present regular rate, normal rhythm, normal heart sounds, +S1 and +S2 Abdominal Exam Abdominal exam: Present soft and normal bowel sounds Comment: Left flank pain secondary to left rib fracture Extremities Exam Extremities exam: Present normal inspection and full ROM Back Exam Back exam: Present CVA tenderness (L) Neurological Exam Neurological exam: Present alert, oriented X3 and normal gait Skin Skin exam: Present warm, dry and intact Medical Decision Making Medical Records Screening: Per USPSTF and CDC recommendations, given the prevalence of disease in our region, it is our hospital?s policy to screen for HIV and viral Hepatitis for all patients aged 18 and over and those with ongoing risk factors. Paresh Inquiry Pt receiving controlled substance: No Vital Signs: 10/23/24 13:30 10/23/24 13:41 10/23/24 14:21 Temperature 97.8 F Temperature Source Oral Pulse Rate 85 77 Pulse Rate [Left Radial] 82 Respiratory Rate 19 Blood Pressure 147/83 H 135/71 Blood Pressure [Right Arm] 158/79 H Blood Pressure Mean Blood Pressure Mean [Right Arm] 105 02 Sat by Pulse Oximetry 99 99 98 Oxygen Delivery Method Room Air Room Air Room Air 10/23/24 14:30 10/23/24 15:00 10/23/24 15:30 Temperature Temperature Source Pulse Rate 79 78 66 Pulse Rate [Left Radial] Respiratory Rate Blood Pressure 131/73 133/77 133/73 Blood Pressure [Right Arm] Blood Pressure Mean 96 Blood Pressure Mean [Right Arm] 02 Sat by Pulse Oximetry 99 99 100 Oxygen Delivery Method Room Air Room Air 10/23/24 16:01 10/23/24 16:30 10/23/24 17:02 Temperature 98.1 F Temperature Source Pulse Rate 61 63 63 Pulse Rate [Left Radial] Respiratory Rate 18 Blood Pressure 157/80 H 146/75 H 146/75 H Blood Pressure [Right Arm] Blood Pressure Mean 100 Blood Pressure Mean [Right Arm] 02 Sat by Pulse Oximetry 99 100 Oxygen Delivery Method Room Air Lab Data Lab Results 10/23/24 13:27: Urine Color Yellow, Urine Appearance Clear, Urine pH 7.0, Ur Specific Polo 1.020, Urine Protein Trace, Urine Glucose (UA) 2+, Urine Ketones Negative, Urine Blood 3+ A, Urine Nitrate Negative, Urine Bilirubin Negative, Urine Urobilinogen 0.2, Ur Leukocyte Esterase Negative, Urine RBC Tntc, Urine WBC Occasional, Ur Squamous Epith Cells 3-5, Urine Bacteria Trace 10/23/24 13:36: WBC 10.0, RBC 4.54 L, Hgb 13.3 L, Hct 40.8 L, MCV 89.9, MCH 29.3, MCHC 32.6, RDW 12.8, Plt Count 330, MPV 9.3, Neut % (Auto) 60.2, Lymph % (Auto) 31.0, Luce % (Auto) 6.3, Eos % (Auto) 1.4, Baso % (Auto) 0.7, Neut # (Auto) 6.1, Lymph # (Auto) 3.1, Luce # (Auto) 0.6, Eos # (Auto) 0.1, Baso # (Auto) 0.1, PT 10.2, INR 0.90, APTT 26.1, Sodium 137, Potassium 4.5, Chloride 103, Carbon Dioxide 28, Anion Gap 10.5, BUN 11, Creatinine 0.70, Estimated Creat Clear 102, Estimated GFR 112, Est GFR ( Amer) 136, Glucose 242 H, Calcium 8.9, Magnesium 1.5 L, Total Bilirubin 0.4, AST 22, ALT 15, Alkaline Phosphatase 119, Total Protein 6.8, Albumin 3.7, Globulin 3.1, Albumin/Globulin Ratio 1.2, HCV Ab [place] w/Rflx PCR Qn Negative, HIV Ag/Ab Combo Qual Negative 10/23/24 13:36 10/23/24 13:36 Orders (Tests/Meds): ED MEDICATIONS Discontinued Medications Generic Name Dose Route Start Last Admin Trade Name Freq PRN Reason Stop Dose Admin Sodium Chloride 1,000 mls @ 999 mls/hr 10/23/24 14:26 10/23/24 14:32 Sod Chlor 0.9% 1000ml Bag IV 10/23/24 15:26 999 mls/hr .Q1H1M ONE Administration Sodium Chloride 1,000 mls @ 999 mls/hr 10/23/24 15:45 10/23/24 15:46 Sod Chlor 0.9% 1000ml Bag IV 10/24/24 15:44 Not Given .Q1H1M DAYA Iopamidol 75 ml 10/23/24 15:32 10/23/24 15:33 Iopamidol-370 (76%);100ml Bottle IV 10/23/24 15:33 75 ml ONCE ONE Administration Metoprolol Tartrate 0 mg 10/23/24 15:45 Metoprolol Tartrate 50mg Tablet PO 10/24/24 15:44 DIRECTED [facility] Protocol Morphine Sulfate 4 mg 10/23/24 14:26 10/23/24 14:32 Morphine 4mg/Ml Syringe IV 10/23/24 14:27 4 mg ONCE ONE Administration Ondansetron HCl 4 mg 10/23/24 14:34 10/23/24 14:34 Ondansetron 4mg/2ml Vial IV 10/23/24 14:35 4 mg ONCE ONE Administration Sodium Chloride 10 ml 10/23/24 15:32 10/23/24 15:33 Sodium Chloride 0.9% 10ml Syr (Rad Only) IV 10/23/24 15:33 10 ml ONCE ONE Administration ORDERS Category Date Time Status CT abdomen pelvis w con Stat Cat Scan 10/23/24 15:[address] abdomen pelvis wo con Stat Cat Scan 10/23/24 13:41 Completed CBC [Complete Blood Count Auto Diff] Stat Lab 10/23/24 13:36 Completed Comprehensive Metabolic Panel Stat Lab 10/23/24 13:36 Completed HIV Combo Stat Lab 10/23/24 13:36 Completed Hepatitis C Ab Qual. W/ RFX Stat Lab 10/23/24 13:36 Completed Magnesium Stat Lab 10/23/24 13:36 Completed PT INR [Prothrombin Time INR] Stat Lab 10/23/24 13:36 Completed PTT [Activated Partial Thrombo Time] Stat Lab 10/23/24 13:36 Completed UA [Urinalysis and Microscopic] Stat Lab 10/23/24 13:27 Completed Urinalysis-Acute [Urinalysis and Microscopic] Stat Lab 10/23/24 13:41 Ordered Medical Decision Narrative: Insert review patient is a 69-year-old male presenting to the emergency department for evaluation of hematuria. Patient is hemodynamically stable and nontoxic-appearing upon arrival, afebrile. Differential diagnosis includes kidney stone, UTI, among others. Workup will be conducted with hematologic labs, specific imaging. Initial inventions include crystalloid bolus, analgesics. Initial workup reviewed by me hematologic labs are remarkable for nothing acute. Formal imaging read remarkable for please see radiologist report for formal reading. Upon repeat evaluation patient appears normal and in no pain. Discussed with patient strict return precautions as far as any increased pain increased blood in his urine or any other concerns. I did discuss with him the CT findings. He has an appointment with Dr. Kia Ortega at who placed the graft and stent in October. He also has make an appointment with his neurologist on Friday. He is taking Brilinta twice a day which they increased 2 months ago when he had a seizure in the emergency room. He says that they were concerned that it was another stroke. He is concerned that this is the cause of the bleeding as [place]. I did discuss with Dr. Domingo and he suggest that patient have outpatient follow-up with the doctor who placed the stent which patient will do this. Patient is safe for discharge home. Critical Care Critical Care Time Critical Care Time: No
[2024-10-23 14:09] LABS: Albumin/Globulin Ratio 1.2 (1.1-1.8); Alkaline Phosphatase 119 U/L (38-126); Anion Gap 10.5 mEq/L (5-15); Bilirubin,Total 0.4 mg/dl (0.2-1.3); Calcium 8.9 mg/dl (8.4-10.2); Carbon Dioxide 28 mmol/L (22.0-30.0); Globulin 3.1 g/dL (1.3-3.2); Glucose 242 mg/dl (74-100); Magnesium 1.5 mg/dl (1.6-2.3); Total Protein,Serum 6.8 g/dl (6.3-8.2)
[2024-10-23] MEDS: MORPHINE 4MG/ML SYRINGE 4 MG IV (14:32)
[2024-10-23] MEDS: 0.9 % SODIUM CHLORIDE 1000ML 1,000 ML 999 ML IV (14:32)
[2024-10-23] MEDS: ONDANSETRON 4MG/2ML VIAL 4 MG IV (14:34)
[2024-10-23 15:12] LABS: HIV Combo NEGATIVE (Negative)
--- NOTE | 2024-10-23 15:13 | PC.NURSE ---
TERESA SPEAKING WITH DUTCH
--- NOTE | 2024-10-23 15:18 | CT_ITS ---
PROCEDURE INFORMATION: Exam: CT Abdomen And Pelvis With Contrast Exam date and time: 10/23/2024 3:33 PM Age: 69 years old Clinical indication: Other: Blood in urine TECHNIQUE: Imaging protocol: Computed tomography of the abdomen and pelvis with contrast. Radiation optimization: All CT scans at this facility use at least one of these dose optimization techniques: automated exposure control; mA and/or kV adjustment per patient size (includes targeted exams where dose is matched to clinical indication); or iterative reconstruction. Contrast material: ISOVUE; Contrast volume: 75 ml; Contrast route: IV; COMPARISON: CT ABDOMEN PELVIS WO CON 10/23/2024 2:15 PM FINDINGS: Liver: Unremarkable. Gallbladder and biliary ducts: Cholelithiasis without evidence of acute cholecystitis, unchanged. Pancreas: Unremarkable. Spleen: Unremarkable. Adrenal glands: Unremarkable. Kidneys and ureters: Bilateral kidneys enhance symmetrically with normal renal nephrograms. However, there is asymmetric excretion of intravenous contrast demonstrated on delayed phase imaging with slightly delayed excretion from the left kidney relative to the right. No renal or ureteral stones. No solid renal lesion. Bilateral ureters are normal in caliber and patent without filling defects. Stomach and bowel: Unremarkable. Appendix: No evidence of appendicitis. Intraperitoneal space: No free fluid. No pneumoperitoneum. Vasculature: Redemonstration of abdominal aortic aneurysm status post endograft repair with superior margin of the endograft again noted to overlap with both main renal artery ostia with no main renal artery stents present. Evaluation of the main renal arteries is somewhat limited without arterial phase imaging, but both are shown to remain patent. 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 No definite stenosis is seen in the right main renal artery, noting that the ostium is poorly visualized. Of note, the bilateral main renal arteries both arise from the aorta in an atypically superior location </=1 cm inferior to the level of the superior mesenteric artery. Lymph nodes: Unremarkable. Urinary bladder: Unremarkable. Reproductive: Unremarkable. Bones/joints: No evidence of acute osseous abnormality. Soft tissues: Unremarkable. IMPRESSION: 1. Abdominal aortic endograft in place with superior margin of the endograft again noted to overlap with both main renal artery ostia. Both main renal arteries remain patent with symmetric enhancement of both kidneys. 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 Recommend urgent referral to endovascular repair team for re-evaluation. 2. Please see above for additional pertinent findings.
[2024-10-23 15:20] LABS: Hepatitis C Ab Qual. W/ RFX NEGATIVE (Negative)
[2024-10-23] MEDS: SODIUM CHLORIDE 0.9% 10ML SYR (RAD ONLY) 10 ML IV (15:33)
[2024-10-23] MEDS: IOPAMIDOL-370 (76%);100ML BOTTLE 75 ML IV (15:33)
== END 2024-10-23 17:05 | disposition home or self-care (01) ==
PROVIDERS: Nurse Practitioner; Emergency Provider Student in an Organized Health Care Education/Training Program; PCP Family Medicine
DX: R10.12 Left upper quadrant pain (principal); R31.9 Hematuria, unspecified; Z79.01 Long term (current) use of anticoagulants; Z11.59 Encounter for screening for other viral diseases; Z11.4 Encounter for screening for human immunodeficiency virus [HIV]
CPT/HCPCS: 74176; 74177; 80053; 81001; 83735; 85025; 85610; 85730; 86803; 87389; 96361; 96374; 96375; 99285; J2270; J2405; J7030; Q9967

== ENCOUNTER 2024-11-01 19:42 | Emergency (ER) | payer MEDICARE, SELFPAY ==
[2024-11-01 19:50] VITALS: BP 154/73; PULSE 88; RESP 18; TEMP 36.3; O2SAT 100; BMI 31.7
--- NOTE | 2024-11-01 20:05 | HMH.EDGENADL ---
Discharge Plan Disposition Patient Disposition: Home, Self-Care Chief Complaint: Urogenital-Male Prescriptions Prescriptions: No Action hydrocodone-acetaminophen 7.5-325 mg tablet 7.5 tab PO Q6H PRN (Reason: pain) 30 Days Qty: 90 0RF insulin glargine 100 unit/mL (3 mL) insulin pen, sensor 26 unit SQ HS Qty: 3 2RF gabapentin 800 mg tablet 800 mg PO TID 30 Days Qty: 90 2RF promethazine 12.5 mg tablet 12.5 mg PO TID PRN (Reason: nausea and vomiting) Qty: 60 3RF sennosides [senna] 8.6 mg tablet See Rx Instructions .ROUTE .COMPLEX Qty: 30 0RF Dose Instruction: TAKE 1 TABLET BY MOUTH ONCE DAILY Rx Instructions: TAKE 1 TABLET BY MOUTH ONCE DAILY aspirin 81 mg tablet,delayed release (DR/EC) 81 mg PO DAILY Qty: 90 0RF metformin 1,000 mg tablet 1,000 mg PO BID 90 Days Qty: 180 4RF (DME) pen needle, diabetic [BD Ultra-Fine Gayatri Pen Needle] 32 gauge x 5/32 needle See Rx Instructions .ROUTE .MEDSUPPLY Qty: 1200 Rx Instructions: As directed nicotine 21 mg/24 hr patch 24 hour 1 patch transdermal DAILY Qty: 28 2RF amlodipine [Norvasc] 10 mg tablet 10 mg PO DAILY Qty: 30 5RF nystatin 100,000 unit/mL suspension 1 ml PO QID 7 Days Qty: 28 0RF Rx Instructions: swish and swallow Januvia 100 mg tablet 100 mg PO DAILY 90 Days Qty: 90 4RF atorvastatin [Lipitor] 80 mg tablet 80 mg PO DAILY Qty: 90 2RF (DME) Dexcom G7 Sensor Device See Rx Instructions .Route Qty: 1 6RF Rx Instructions: As directed (DME) Dexcom G7 Chemical Equipment Repairer Misc See Rx Instructions .Route Qty: 1 6RF Rx Instructions: As directed (DME) Omnipod 5 G6-G7 Pods (Gen 5) Cartridge See Rx Instructions .Route Qty: 5 2RF Rx Instructions: As directed levetiracetam [Keppra] 750 mg tablet 750 mg PO BID 90 Days Qty: 180 3RF bisacodyl [Dulcolax (bisacodyl)] 10 mg suppository 10 mg NE DAILY PRN (Reason: constipation) Qty: 12 2RF carvedilol 12.5 mg tablet See Rx Instructions .ROUTE .COMPLEX Qty: 180 0RF Dose Instruction: TAKE 1 TABLET BY MOUTH TWICE DAILY - MUST ADMINISTER WITH A MEAL/FOOD Rx Instructions: TAKE 1 TABLET BY MOUTH TWICE DAILY - MUST ADMINISTER WITH A MEAL/FOOD Brilinta 90 mg tablet See Rx Instructions .ROUTE .COMPLEX Qty: 60 0RF Dose Instruction: TAKE 1 TABLET BY MOUTH EVERY 12 HOURS Rx Instructions: TAKE 1 TABLET BY MOUTH EVERY 12 HOURS lisinopril 20 mg tablet 20 mg PO DAILY Qty: 90 3RF pantoprazole 40 mg tablet,delayed release (DR/EC) See Rx Instructions .ROUTE .COMPLEX Qty: 90 0RF Dose Instruction: TAKE ONE TABLET BY MOUTH EVERY DAY FOR REFLUX/ACID REFLUX Rx Instructions: TAKE ONE TABLET BY MOUTH EVERY DAY FOR REFLUX/ACID REFLUX Humulin R Regular U-100 Insuln 100 unit/mL solution 1 sliding scale dose SQ USEASDIRECTD Qty: 10 2RF ipratropium-albuterol 0.5 mg-3 mg(2.5 mg base)/3 mL solution for nebulization 3 ml inhalation Q20M PRN (Reason: shortness of breath or wheezing) Qty: 90 0RF Rx Instructions: for 3 doses Referrals Follow up/Referrals: Robert Reilly MD [Primary Care Provider] - See instructions Activity Restrictions/Add. Instructions Additional Instructions/Restrictions: Contact your urologist tomorrow, 11/02 in order to discuss further steps. Call your family doctor to establish care for this visit to the emergency department and schedule follow-up within 48 hours to ensure improvement. If you have any worsening of your condition or any other concerning signs or symptoms, return to the emergency department or your primary care doctor for further evaluation. Clinical Impressions Clinical Impression: Acute urinary retention Instructions Patient Instructions: DI for Urinary Tract Infection (UTI), DI for Urinary Tract Infection in Children Print Language Print Language: Swazi Discharge ED Provider: Fredy oDmingo General Adult HPI General Chief complaint: Urogenital-Male Stated complaint: Had scope today on bladder, now unable to pee Time Seen by Provider: 11/01/24 20:02 Mode of Arrival: Ambulatory Source of Information: Patient Description of Symptoms (Recalled from ER Triage Doc. by RN): discharged from [facility]'s urology office at 4pm and had a stent placed. Pt has been unable to urinate since the appointment History of Present Illness HPI narrative: Please note that above description of symptoms, in this electronic medical record under categorization of recalled from ER triage doctor by RN are reflective of an initial nursing assessment, however, is not reflective of my full history and physical exam that was personally taken and clarified. Consequentially, this preceding description of symptoms, which may include the patient's categorized chief complaint in the EMR, do not reflect my personal clinical impression, and the ultimate description of history of present illness and patient stated complaints should be deferred to this section of the note. Unless stated otherwise or congruent with this section of the note, additional signs, symptoms, or incongruence should be interpreted as inaccurate with my clinical impression. Related Data Home Medications ?Medication ?Instructions ?Recorded ?Confirmed pen needle, diabetic 32 gauge x #1,200 ea 03/22/24 10/27/24 (BD Ultra-Fine Gayatri Pen Needle) Previous Rx's ?Medication ?Instructions ?Recorded aspirin 81 mg tablet,delayed 81 mg PO DAILY Blood thinner #90 05/28/21 release tabs metformin 1,000 mg tablet 1,000 mg PO BID 90 days #180 tabs 02/11/24 hydrocodone 7.5 mg-acetaminophen 7.5 tab PO Q6H PRN pain 30 days 03/09/24 325 mg tablet #90 tabs insulin glargine 100 unit/mL (3 26 unit (0.26 mL) SQ HS #3 mL 06/28/24 mL) subcutaneous pen, sensor nicotine 21 mg/24 hr daily 1 patch transdermal DAILY #28 ea 07/13/24 transdermal patch amlodipine 10 mg tablet (Norvasc) 10 mg PO DAILY #30 tabs 07/20/24 blood-glucose sensor (Dexcom G7 #1 ea 07/26/24 Sensor device) blood-glucose,urgent care technician,cont #1 ea 07/26/24 (Dexcom G7 Chemical Equipment Repairer) insulin pump cart,auto,BT,G6/7 #5 ea 07/26/24 (Omnipod 5 G6-G7 Pods (Gen 5) subcutaneous cartridge) promethazine 12.5 mg tablet 12.5 mg PO TID PRN nausea and 08/03/24 vomiting #60 tabs levetiracetam 750 mg tablet 750 mg PO BID 90 days #180 tabs 08/09/24 (Keppra) gabapentin 800 mg tablet 800 mg PO TID 30 days #90 tabs 08/25/24 bisacodyl 10 mg rectal suppository 10 mg NE DAILY PRN constipation 09/22/24 (Dulcolax (bisacodyl)) #12 ea carvedilol 12.5 mg tablet See Rx Instructions .Route 09/23/24 .COMPLEX #180 tabs ipratropium 0.5 mg-albuterol 3 mg 3 ml inhalation Q20M PRN shortness 10/07/24 (2.5 mg base)/3 mL nebulization of breath or wheezing #90 mL soln ticagrelor 90 mg tablet (Brilinta) See Rx Instructions .Route 10/08/24 .COMPLEX #60 tabs lisinopril 20 mg tablet 20 mg PO DAILY #90 tabs 10/15/24 atorvastatin 80 mg tablet (Lipitor) 80 mg PO DAILY #90 tabs 10/22/24 nystatin 100,000 unit/mL oral 1 ml PO QID 7 days #28 mL 10/22/24 suspension sitagliptin phosphate 100 mg 100 mg PO DAILY 90 days #90 tabs 10/22/24 tablet (Januvia) sennosides 8.6 mg tablet (senna) See Rx Instructions .Route 10/27/24 .COMPLEX #30 tabs insulin regular human 100 unit/mL 1 sliding scale dose SQ 10/29/24 injection solution (Humulin R USEASDIRECTD #10 mL Regular U-100 Insulin) pantoprazole 40 mg tablet,delayed See Rx Instructions .Route 10/29/24 release .COMPLEX #90 tabs Allergies Allergy/AdvReac Type Severity Reaction Status Date / Time No Known Allergies Allergy Verified 10/27/24 15:02 [facility] Disclaimer: The information contained in this section may have been updated after the patient was seen, as this information can be updated by other users. Medical History Abdominal pain Bronchitis History of stroke AAA (abdominal aortic aneurysm) correction use of drug Dyspnea Encounter for pre-operative cardiovascular clearance Diabetes 1.5, managed as type 1 CAD (coronary artery disease) Surgical History S/P AAA repair Hx of CABG Social History Smoking Status: Never smoker quit status: not considering quitting second hand exposure: No alcohol intake: never substance use type: denies use current occupational status: disabled Travel in the last 8 weeks?: None household members: family housing: house current occupational exposures/hazards: No caffeine: Yes Have you lived/traveled outside [place] in past 30 days?: No Contact w/someone who lives/traveled outside [place] past 30 days?: No Exposure to someone with infectious disease in past 14 days?: No Do you have a fever (greater than 100.4 F or 38 C)?: No Have you tested positive for COVID-19?: No Exposed to someone with COVID-19 in past 14 days?: No Do you have a sore throat?: No Do you have a cough?: No Do you have any weakness?: No Do you have any diarrhea?: No Are you experiencing any unusual bleeding?: No Do you have any muscle aches/pain?: No Do you have any abdominal pain?: No Are you experiencing loss of taste or smell?: No Other Medical History Have you received the Flu Vaccine for this season: No Have you received the Pneumonia Vaccine: Yes ROS Obtained: Yes All systems reviewed & no additional complaints except as documented Physical Exam General General appearance: alert Head Head exam: atraumatic and normocephalic Eye Eye exam: Present normal appearance, PERRL and EOMI Neck Neck exam: Present normal inspection, full ROM and trachea midline Respiratory Respiratory exam: Absent respiratory distress, wheezes, stridor, accessory muscle use or prolonged expiratory phase Cardiovascular Cardiovascular exam: Present other (Pulses equal symmetric in upper and lower extremities) Abdominal Exam Abdominal exam: Present soft; Absent distention, tenderness or pulsatile mass Extremities Exam Extremities exam: Absent edema Neurological Exam Neurological exam: Present alert, oriented X3 and CN II-XII intact; Absent motor sensory deficit Skin Skin exam: Present warm and dry; Absent diaphoresis or erythema Medical Decision Making Medical Records Medical records reviewed: Yes I reviewed the patient's medical records. Screening: Per USPSTF and CDC recommendations, given the prevalence of disease in our region, it is our hospital?s policy to screen for HIV and viral Hepatitis for all patients aged 18 and over and those with ongoing risk factors. Paresh Inquiry Pt receiving controlled substance: No Paresh was queried for this patient: No Vital Signs: 11/01/24 19:50 Temperature 97.3 F L Temperature Source Oral Pulse Rate [Right] 88 Respiratory Rate 18 Blood Pressure [Right Arm] 154/73 H Blood Pressure Mean [Right Arm] 100 Blood Pressure Position [Right Arm] Sitting 02 Sat by Pulse Oximetry 100 Oxygen Delivery Method Room Air Orders (Tests/Meds): ORDERS Category Date Time Status KUB (single view) [XR KUB] Stat Exams 11/01/24 20:15 Taken Medical Decision Narrative: 69-year-old male history of hypertension, hyperlipidemia, CAD, diabetes, urinary retention presenting with urinary retention. He states that he had urethroscope today and had right ureteral stent placed for urinary retention. Was able to urinate at the hospital, unable to urinate since going home and last urination was 3 PM about 5 hours prior to this. Having lower abdominal distention, otherwise no symptoms. History obtained with patient. On arrival, very clinically well, he does have suprapubic fullness and tenderness. Differential includes stent migration, external compression, BPH, urethral inflammation, among others. Because patient not peritonitic, I have low concern for ureteral rupture, kidney rupture, bladder rupture, etc. KUB to be obtained in order to evaluate for right sided stent. On independent interpretation, stent appears to be in good position. Patient states that he was sent in order to get catheter, catheter placed. Recommended outpatient follow-up with urology tomorrow. He voiced his understanding. Because patient at baseline without signs or symptoms of clinical decompensation, deemed appropriate for discharge. Results were relayed to patient who voiced understanding and were agreeable to outpatient management and follow up. I discussed my clinical impression with patient and answered all questions. At this time, the evidence for any other entities in the differential is insufficient to warrant any further testing or ED observation. This was explained as well. Advisory was given that persistent or worsening symptoms require further evaluation. I confirmed the understanding of this discussion. Baseball Glove Stuffer disclaimer Much of this encounter note is an electronic airborne sensor specialist spoken language to printed text. Electronic airborne sensor specialist of the spoken language may permit errors. Although I have reviewed the note, some errors may still exist. Critical Care Critical Care Time Critical Care Time: No
--- NOTE | 2024-11-01 20:15 | XR_ITS ---
PROCEDURE INFORMATION: Exam: XR Abdomen Exam date and time: 11/01/2024 8:26 PM Age: 69 years old Clinical indication: Abdominal pain; Additional info: Eval for urinary stent migration TECHNIQUE: Imaging protocol: Radiologic exam of the abdomen. Views: Frontal supine view of the abdomen. 1 View. COMPARISON: CT ABDOMEN PELVIS W CON 10/23/2024 3:33 PM FINDINGS: Gastrointestinal tract: Normal. No bowel dilation. Organs: Cholelithiasis. Right ureteral stent with the proximal portion projecting of the right renal pelvis and the distal portion projecting over the urinary bladder. Vasculature: Aortoiliac stent graft. Bones/joints: Degenerative changes. IMPRESSION: 1. Right ureteral stent which appears in appropriate position. 2. Cholelithiasis. 3. Nonobstructive bowel gas pattern.
[2024-11-01 21:51] VITALS: BP 149/82; PULSE 88; RESP 18; TEMP 37; O2SAT 98
== END 2024-11-01 21:53 | disposition home or self-care (01) ==
PROVIDERS: Emergency Provider Emergency Medicine; PCP Family Medicine
DX: R33.9 Retention of urine, unspecified (principal)
CPT/HCPCS: 51702; 74018; 99283

== ENCOUNTER 2025-04-25 09:44 | Outpatient (CLI) | payer MEDICARE, SELFPAY ==
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
[2025-04-25 16:20] LABS: Hematocrit 42.4 % (42.0-52.0); Hemoglobin 13.2 g/dL (14.1-18.0); Immature Granulocytes % 0.5 %; Mean Corpuscular HGB Conc 31.1 g/dL (31.8-35.4); Mean Corpuscular Hemoglobin 28.0 pg (27.0-31.2); Mean Corpuscular Volume 89.8 fl (80-94); Nucleated Red Blood Cells % 0 %; Platelet Count 305 K/mm3 (142-424); Red Blood Count 4.72 M/mm3 (4.60-6.20); Red Cell Distribution Width-SD 42.9 fL; White Blood Count 8.9 K/mm3 (4.8-10.8)
[2025-04-25 17:35] LABS: Alanine Aminotransferase 12 U/L (12-78); Albumin Level 2.9 g/dl (3.5-5.0); Albumin/Globulin Ratio 0.9 (1.1-1.8); Alkaline Phosphatase 130 U/L (38-126); Anion Gap 10.9 mEq/L (5-15); Aspartate Amino Transferase 15 U/L (17-59); Bilirubin,Total 0.5 mg/dl (0.2-1.3); Blood Urea Nitrogen 10 mg/dl (9-20); Calcium 8.8 mg/dl (8.4-10.2); Carbon Dioxide 26 mmol/L (22.0-30.0); Chloride 102 mmol/L (98-107); Cholesterol 140 mg/dl (140-200); Creatinine,Serum 0.60 mg/dl (0.66-1.25); Estimated Glomerular Filt Rate 134 ml/min (>60); GFR (African American) 162 ML/MIN (>60); Globulin 3.2 g/dL (1.3-3.2); Glucose 276 mg/dl (74-100); HDL Cholesterol 40 mg/dl (40-60); Potassium 3.9 mmoL/L (3.5-5.1); Sodium 135 mmol/L (136-145); Total Protein,Serum 6.1 g/dl (6.3-8.2); Triglycerides 202 mg/dl (30-150)
[2025-04-26 05:04] LABS: Hemoglobin A1C 11.2 % (4.0-6.0)
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
--- OUTSIDE RECORDS SUMMARY | 2025-04-26 11:26 | XMS_ITS | Encounter Summary ---
Author Organization [facility] Address [address] [place] [address] Care Team Providers Care Apprentice Plumber Name Role Phone Robert Reilly MD Primary Care Provider [phone] Reason for Visit * Reason Onset Date Comments APPOINTMENT, DR. GUTIERREZ 02/15/2025 Encounter Details Date Type Department Care Team (Late st Contact Info) Description 02/15/2025 Telephone [facility] [address] [facility] [address] [place] [address] Pepper Gutierrez MD [address] [facility] [address] [place] [address] APPOINTMENT, DR. GUTIERREZ Social History Tobacco Use Types Packs/Day Years Used Date Smoking Tobacco: Every Day Cigarettes Passive Smoke Exposure: Current Smokeless Tobacco: Current Alcohol Use Standard Drinks/Week Comments Never 0 (1 standard drink = 0.6 oz pur e alcohol) [facility] Utilities Answer Date Recorded In the past 12 months has [employer], gas, oil, or water [employer] threatened to shut off services in your home? No 07/09/2024 AUDIT-C Answer Date Recorded Q1: How often do you have a drink containing alcohol? Never 07/09/2024 Q2: How many drinks containi ng alcohol do you have on a typical day when you are drinking? Patient does not drink Q3: How often do you have si x or more drinks on one occasion? Never 07/09/2024 Overall Financial Resource Strain (CARDIA) Answe r Date Recorded How hard is it for you to pa y for the very basics like food, housing, medical care, and heating? Not very hard 07/09/2024 [facility] - Occupational Stress Questionnaire Answer Date Recorded Do you feel stress - tense, restless, nervous, or anxious, or unable to sleep at night because your mind is troubled all the time - these days? Not at all 07/09/2024 Exercise Vital Sign Answer Date Recorde d On average, how many days pe r week do you engage in moderate to strenuous exercise (like a brisk walk)? 0 days 07/09/2024 On average, how many minutes do you engage in exercise at this level? 0 min 07/09/2024 Hunger Vital Sign Answer Date Recorded Within the past 12 months, y ou worried that your food would run out before you got the money to buy more. Never true 07/09/19 25 Within the past 12 months, t he food you bought just didn't last and you didn't have money to get more. Never true 07/09/2024 PRAPARE - Transportation Answer Date Re corded In the past 12 months, has l ack of transportation kept you from medical appointments or from getting medications? No 06/30 In the past 12 months, has l ack of transportation kept you from meetings, work, or from getting things needed for daily living? No 07/09/2024 Abuse Screen Answer Date Recorded Feels Unsafe at Home or Work/School no 07/09/2024 Feels Threatened by Someone no 06/30 Does Anyone Try to Keep You From Having Contact with Others or Doing Things Outside Your Home? no 07/09/2024 Physical Signs of Abuse Present no 07/09/2024 Housing Stability Answer Date Recorded Current Living Arrangements home 06/30 Potentially Unsafe Housing Conditions none 07/09/2024 Family and Community Support Answer Yariel e Recorded If for any reason you need h elp with day-to-day activities such as bathing, preparing meals, shopping, managing finances, etc., do you get the help you need? I don't need any help 07/09/2024 How often do you feel lonely or isolated from those around you? Rarely 07/09/2024 Employment Answer Date Recorded Do you want help finding or keeping work or a job? I do not need or want help 07/09/2024 Disabilities Answer Date Recorded Difficulty Concentrating, Remembering or Making Decisions no 07/09/2024 Difficulty Managing Errands Independently no 07/09/2024 Education Answer Date Recorded Do you want help with school or training? For example, starting or completing job training or getting a high school diploma, GED or equivalent No 07/09/2024 Preferred Language Belarusian 07/09/2024 PHQ-2 Answer Date Recorded Patient Health Questionnaire-2 Score 0 01/31/2025 Sex and Gender Information Value Date Recorded Sex Assigned at Not on file Legal Sex Male 11:06 AM EDT Gender Identity Not on file Sexual Orientation Not on file documented as of this encounter Miscellaneous Notes * Telephone Encounter - Tammy Bray RegSched Rep - 02/15/2025 11:29 AM EDT Provider: DR. GUTIERREZ Caller: Chinmay Gomes Relationship to Patient: Self Pharmacy: N/A Reason for Call: WINDOWS [employer] ADMINISTRATOR APPOINTMENT. PATIENT WOULD LIKE AN APPOINTMENT REMINDER WITH OFFICE INFORMATIONMAILED TO HIM, THANK YOU. documented in this encounter Plan of Treatment Upcoming Encounters Date Type Department Care Team (Late st Contact Info) Description 07/04/2025 9:30 AM EST Office Visit [facility] [address] [facility] [address] [place] [address] Pepper Gutierrez MD [address] [facility] [address] [place] [address] 08/03/2025 1:00 PM EST Office Visit [facility] [address] [facility] [address] [place] [address] Cristine Portillo, DRILLING MACHINE OPERATOR [address] [facility] [address] [place] [address] documented as of this encounter Visit Diagnoses Not on filedocumented in this encounter Care Teams Apprentice Plumber Relationship Specialty Start Date End Date Robert Reilly MD [address] [place] [id number] PCP - General Family Medicine 01/31/25 documented as of this encounter
--- OUTSIDE RECORDS SUMMARY | 2025-04-26 11:26 | XMS_ITS | Clinical Summary ---
Author Organization Healthcare Address [address] [place] [address] Care Team Providers Care Manager Fiber Name Role Phone Robert Reilly MD Primary Care Provider [phone] Laura Atkinson Unavailable [phone] Allergies Active Allergy Reactions Criticality Noted Date Comments Vancomycin Shortness of breath High 08/19/2023 Fett hard to breathe immed after starting - no hemodynamic changes or rash - some bronchospasm. Medications gabapentin (Neurontin) 800 MG tablet Take 1 tablet (800 mg) by mouth 4 (four) times a day. 1 Active HYDROcodone-kathryn taminophen (Howell) 7.5-325 MG tablet Take 1 tablet (7.5 mg of hydrocodone) by mouth every 6 (six) hours. 1 Active atorvastatin (Lipitor) 40 MG tablet Take 1 tablet (40 mg) by mouth every night. 3 Active ASPIRIN 81 MG chewable tablet Chew 1 tablet (81 mg) 1 (one) time each day in the morning. Active amLODIPine (Norvasc) 5 MG tablet Take 1 tablet (5 mg) by mouth 1 (one) time each day. 90 tablet 3 3 Active Additional Information Patient not taking.Reason: now taking 10 mg, Reported on 02/07/2025 carvedilol (Coreg) 12.5 MG tablet Take 1 tablet (12.5 mg) by mouth 2 (two) times a day with meals. 180 tablet 3 3 Active lisinopril 20 MG tablet Take 1 tablet (20 mg) by mouth 1 (one) time each day. 30 tablet 11 3 Active calcium carbonate (Tums) 500 MG chewable tablet Chew 1 tablet (500 mg) 3 (three) times a day if needed for indigestion or heartburn for up to 60 doses. 30 tablet 1 3 Active promethazine (Phenergan) 25 MG tablet Take 1 tablet (25 mg) by mouth every 8 (eight) hours if needed for nausea. 3 Active pantoprazole (Protonix) 40 MG EC tablet Take 1 tablet (40 mg) by mouth 1 (one) time each day before breakfast. Do not crush, chew, or split. Active senna (Senokot) 8.6 MG tablet Take 1 tablet (8.6 mg) by mouth 1 (one) time each day. Active insulin lispro (Admelog, HumaLOG) 100 UNIT/ML injection pen Inject subcutaneous 1:50>150 SS, max dose 20u/day 10 mL 5 4 Active Additional Information Patient not taking.Reported on 02/07/2025 insulin glargine (Lantus SoloStar, Basaglar) 100 UNIT/ML injection penIndications: Type 2 Diabetes Mellitus Inject 15 Units under the skin every night. 15 mL 1 4 Active Januvia 100 MG tablet Take 1 tablet (100 mg) by mouth 1 (one) time each day in the evening. 30 tablet 5 4 Active metFORMIN (Glucophage) 1000 MG tablet Take 1 tablet (1,000 mg) by mouth 2 (two) times a day with meals. 60 tablet 5 4 Active Continuous Blood Gluc Fish Hatchery Inspector (Dexcom G7 Fish Hatchery Inspector) device 4 Active Continuous Blood Gluc Sensor (Dexcom G7 Sensor) misc 4 Active ticagrelor (Brilinta) 90 MG tablet Take 1 tablet by mouth twice a day. 5 Active acetaminophen (Tylenol) 325 MG tablet Take 2 tablets by mouth every 6 hours as needed. 5 Active HumuLIN R 100 UNIT/ML injection vial 5 Active ipratropium-alb uterol (Duo-Neb) 0.5-2.5 mg/3 mL nebulizer solution 5 Active levETIRAcetam (Keppra) 750 MG tablet Take 1 tablet by mouth twice a day. 5 Active nicotine (Nicoderm CQ) 21 MG/24HR patch Place 1 patch on the skin 1 (one) time each day at the same time. 5 Active amLODIPine (Norvasc) 10 MG tablet 5 Active atorvastatin (Lipitor) 80 MG tablet 5 Active clotrimazole-be tamethasone (Lotrisone) cream Apply topically 2 times a day. Apply as needed to foreskin. 15 g 6 5 Active HumuLIN N KWIKPEN 100 UNIT/ML injection 5 Active Active Problems Problem Noted Date Diagnosed Date Other hydronephrosis 10/27/2024 Gross hematuria 10/27/2024 Encounter for diabetic foot exam 09/01/2023 Neuropathy 09/01/2023 HTN (hypertension) 08/20/2023 Overview (08/20/2023): - Continue home Coreg 12.5 mg BID - Resume home amlodipine 5 mg daily - Resume home lisinopril 20 mg daily HLD (hyperlipidemia) 08/20/2023 Overview (08/20/2023): - Continue home atorvastatin PAD (peripheral artery disease) 08/20/2023 Overview (08/20/2023): - 08/19/23: MAKAYLA (Dr. Osborn) - Continue ASA & Plavix COPD (chronic obstructive pulmonary disease) Overview (08/20/2023): - Not on any home meds to treat CAD (coronary artery disease) 08/20/2023 Overview (08/20/2023): - s/p CABG - Continue home Coreg 12.5 mg BID - Resume home amlodipine 5 mg daily - Continue ASA & Plavix Class 1 obesity in adult 08/20/2023 Overview (08/20/2023): - BMI 30.43 on admit - Complicates all aspects of care and recovery Anemia 08/20/2023 Overview (08/20/2023): - H/H stable Hypomagnesemia 08/20/2023 Overview (08/20/2023): - Replace per electrolyte sliding scale protocol Infrarenal abdominal aortic aneurysm (AAA) witho ut rupture 08/19/2023 Overview (08/20/2023): - 08/19/23: EVAR (Dr. Osborn) - Continue ASA & Plavix Tobacco use 06/12/2023 Overview (08/20/2023): - 1 PPD x 33 total pack-year history - Counseled for smoking cessation - Complicates all aspects of care and recovery Type 2 diabetes mellitus wit h hyperglycemia, without long-term current use of insulin Overview (08/20/2023): - A1c 9.2 on 05/13/23 - Resume home Lantus 20 units nightly - Resume home metformin 1,000 mg BID - Resume home Januvia 100 mg daily Resolved Problems Problem Noted Date Diagnosed Date Resolved Date Abdominal aortic aneurysm (A AA) without rupture 06/12/2023 08/20/2023 Class III obesity with body mass index (BMI) of 40.0 or higher 05/13/2023 08/20/2023 Wound infection complicating hardware, initial encounter 05/12/2023 08/20/2023 Hardware complicating wound infection 05/07/2023 08/20/2023 Microalbuminuria 11/21/2020 08/20/2023 Encounters Date Type Department Care Team Description 02/07/2025 1:50 PM EDT Office Visit [facility] [address] [place] [address] Laura Atkinson PA Other hydronephrosis (Primary Dx) 02/07/2025 11:13 AM EDT - 02/07/2025 11:59 PM EDT Hospital Encounter [facility] [address] [place] [address] Other hydronephrosis Discharge Disposition: Home or Self Care 02/07/2025 Travel from Last 3 Months Immunizations Immunization Administration Dates Next Due Pneumococcal Polysaccharide PPV23 02/05/2017, Family History Medical History Relation Name Comments Cardiac disorder Brother 1 Other cancer Brother 2 Brain cancer Father Stroke Father Breast cancer Mother Hypertension Sister Anesthesia problems Neg Hx Malig Hyperthermia Neg Hx Relation Name Status Comments Brother 1 Brother 2 Father Mother Sister Social History Tobacco Use Types Packs/Day Years Used Date Smoking Tobacco: Every Day Cigarettes 1 50.8 Started: 1974 Passive Smoke Exposure: Current Smokeless Tobacco: Never Tobacco Cessation:Ready to Q uit: Not Asked; Counseling Given: Not Answered Alcohol Use Standard Drinks/Week Comments Never 0 (1 standard drink = 0.6 oz pur e alcohol) Humiliation, Afraid, Rape, and Kick questionnair e Answer Date Recorded Within the last year, have y ou been afraid of your partner or ex-partner? No 05/13/2023 Within the last year, have y ou been humiliated or emotionally abused in other ways by your partner or ex-partner? No Within the last year, have y ou been kicked, hit, slapped, or otherwise physically hurt by your partner or ex-partner? No 05/13/2023 Within the last year, have y ou been raped or forced to have any kind of sexual activity by your partner or ex-partner? No 05/13/2023 AUDIT-C Answer Date Recorded Q1: How often do you have a drink containing alc ohol? Monthly or less 05/13/2023 Q2: How many drinks containi ng alcohol do you have on a typical day when you are drinking? 1 or 2 05/13/2023 Q3: How often do you have si x or more drinks on one occasion? Less than monthly 05/13/2023 PHQ-2 Answer Date Recorded Patient Health Questionnaire-2 Score 0 02/07/2025 Hunger Vital Sign Answer Date Recorded Within the past 12 months, y ou worried that your food would run out before you got the money to buy more. Never true 05/13/20 23 Within the past 12 months, t he food you bought just didn't last and you didn't have money to get more. Never true 05/13/2023 PRAPARE - Transportation Answer Date Re corded In the past 12 months, has l ack of transportation kept you from medical appointments or from getting medications? No 04/30 In the past 12 months, has l ack of transportation kept you from meetings, work, or from getting things needed for daily living? No 05/13/2023 Housing Stability Vital Sign Answer Yariel e Recorded In the last 12 months, was t here a time when you were not able to pay the mortgage or rent on time? No 05/13/2023 [address] of [address] Lived in the Last Year Not on f ile 05/13/2023 In the last 12 months, was t here a time when you did not have a steady place to sleep or slept in a assisted (including now)? No 05/13/2023 PHQ-9 Answer Date Recorded Patient Health Questionnaire-9 Score 0 02/07/2025 AUDIT-C Answer Date Recorded Q1: How often do you have a drink containing alcohol? Never 02/07/2025 Q2: How many drinks containi ng alcohol do you have on a typical day when you are drinking? Patient does not drink Q3: How often do you have si x or more drinks on one occasion? Never 02/07/2025 CAGE ASSESSMENT Answer Date Recorded Cage unable to access Not on file 05/12/2023 Cage max number of drinks Not on file 2022 Cage Beverages a week Not on file 05/12/2023 Have you ever felt you should CUT down on your d rinking? 0 05/12/2023 Have you been ANNOYED by people criticizing your drinking? 0 05/12/2023 Have you felt GUILTY about your drinking? 0 05/12/2023 Have you had a drink first t shanta in the morning ([employer] EXECUTIVE DIRECT[employer]) to steady your nerves or to get rid of a hangover? 0 05/12/2023 CAGE Questionnaire Score 0 023 Utilities Answer Date Recorded In the past 12 months has th e electric, gas, oil, or water company threatened to shut off services in your home? No 05/13/2023 PHQ-2A Answer Date Recorded Patient Health Questionnaire-2 Score 0 05/07/2023 Sex and Gender Information Value Date Recorded Sex Assigned at Male 05/12/2023 6:19 AM EST Legal Sex Male 7:57 PM EDT Gender Identity Male 05/12/2023 6:19 AM EST Sexual Orientation Not on file Last Filed Vital Signs Vital Sign Reading Time Taken Comments Blood Pressure 138/72 02/07/2025 12:26 PM EDT Pulse 74 02/07/2025 12:26 PM EDT Temperature 36.7 C (98.1 F) 02/07/2025 12:26 PM EDT Respiratory Rate 18 11/05/2024 10:20 AM EDT Oxygen Saturation 98% 02/07/2025 12:26 PM EDT Inhaled Oxygen Concentration - - Weight 102 kg (224 lb 13.9 oz) 02/07/2025 12:26 PM EDT Height 177.8 cm (5' 10 ) 02/07/2025 12:26 PM EDT Body Mass Index 32.27 02/07/2025 12:26 PM EDT Plan of Treatment Upcoming Encounters Date Type Department Care Team (Late st Contact Info) Description 02/20/2026 11:30 AM EDT Appointment [facility] [address] [place] [address] 02/20/2026 2:10 PM EDT Office Visit [facility] [address] [place] [address] Laura Atkinson, PA [address] [place] [address] Health Maintenance Due Date Last Done Comments [facility]-Medicare Annual Wellness (AWV) 1955 [facility]-/Child/Adol SDOH Screenings 1955 Diabetes: Dental Exam 1966 [facility]- SDOH Screenings 1974 [facility]-Adult SDOH Screenings 1974 [facility]-DTaP,Tdap,and Td Vaccines (1 - Tdap) 1975 CT Colonography 2001 Colonoscopy 2001 FIT-DNA 2001 FIT 2001 FOBT 2001 Sigmoidoscopy 2001 [facility]-Colorectal Cancer Screening 2001 Lung Cancer Screening Shared Decision Making 2006 [facility]-Zoster Vaccines (1 of 2) 2006 [facility]-RSV Vaccine: 60+ Years or (1 - Risk 60-74 years 1-dose series) 2016 [facility]-Abdominal Aortic Aneurysm (AAA) Screening 2021 [facility]-Diabetes: Hemoglobin A1C 10/08/2024 07/09/2024, 05/13/2023 [id number] Vaccine (1 - season) 2025 [facility]-Influenza Vaccine (#1) 2025 [facility]-Lung Cancer Screening 10/25/2025 10/25/2024 [facility]-Depression Screening 02/07/2026 02/07/2025, 01/28 [facility]-Pneumococcal Vaccine: 50+ Years (3 of 3 - PCV20 or PCV21) 05/27/2027 05/27/2022, 02/05/2017, 05/26/2014 [facility]-Hepatitis C Screening Completed 10/25/2024 [facility]-Obesity Intervention Completed 025, 11/25/2024, 11/02/2024, Additional history exists HPV Vaccines Aged Out No longer eligi ble based on patient's age to complete this topic [facility]-HIB Vaccines Aged Out No longer e ligible based on patient's age to complete this topic [facility]-Hepatitis A Vaccines Aged Out No longer eligible based on patient's age to complete this topic [facility]-IPV Vaccines Aged Out No longer e ligible based on patient's age to complete this topic [facility]-Rotavirus Vaccines Aged Out No lo nger eligible based on patient's age to complete this topic Medical Devices Implanted Type Area Manager Test Device Identifier Shelf Expiration Date Model / Serial / Lot Stent Ureteral Double Pigtail Pos 6fr 26cm - [id number] Implanted:Qty: 1 on 11/01/2024 by Rudy Rice MD at [facility] Stent Right: U[id number] 07/05/2027 [id number] / / Description:Used sub ref# [id number] Endurant Iis Bifurcated [id number] - [id number] Implanted:Qty: 1 on 08/19/2023 [facility] [id number] 06/09/2025 [id number] / [id number] / [id number] Endurant Ii Contra Limb [id number] - [id number] Implanted:Qty: 1 on 08/19/2023 by [facility] [place]-[id number] 03/16/2025 [id number] 24E / [id number] / [id number] Endurant Ii Contra Limb [id number] - [id number] Implanted:Qty: 1 on 08/19/2023 by [facility] [id number] 03/10/2025 [id number] / / [id number] Procedures Procedure Name Priority Date/Time Associated Diagnosis Comments US RENAL COMPLETE Routine 02/07/2025 11: 35 AM EDT Other hydronephrosis CT ANGIO CHEST STAT 10/25/2024 5:59 PM EDT HEPATITIS C ANTIBODY - ED W/REFLEX TO HCV QUANT PCR STAT 10/25/2024 3:04 PM EDT HEMOGLOBIN A1C Add-On 05/13/2023 12:22 AM EST from Last 3 Months or Most Recently Relevant to Health Maintenance Results * US Renal Complete (02/07/2025 11:35 AM EDT) Anatomical Region Laterality Modality Kidney Ultrasound Impressions 02/07/2025 12:05 PM EDT No hydronephrosis CRITICAL RESULT: No. COMMUNICATION: Per this written report. Drafted by Shalini Sharpe MD on 02/07/2025 11:58 AM Final report signed by Shalini Sharpe MD on 02/07/2025 12:05 PM Narrative 02/07/2025 12:05 PM EDT CLINICAL INDICATION: evaluate for hydronephrosis TECHNIQUE: Multiplanar static and cine artis scale ultrasound images of the kidneys and urinary bladder were obtained, accompanied by selective color Doppler ultrasound images. COMPARISON: None. FINDINGS: Right Kidney: Normal in size and echogenicity. Length 12 cm. No hydronephrosis, obvious calculi or discernible mass. Left Kidney: Normal in size and echogenicity. Length 12.7 cm. No hydronephrosis, obvious calculi or discernible mass. Urinary bladder: Partially distended and grossly normal. Procedure Note Shalini Sharpe MD - 02/07/2025 CLINICAL INDICATION: evaluate for hydronephrosis TECHNIQUE: Multiplanar static and cine artis scale ultrasound images of the kidneysand urinary bladder were obtained, accompanied by selective color Dopplerultrasound images. COMPARISON: None. FINDINGS: Right Kidney: Normal in size and echogenicity. Length 12 cm. Nohydronephrosis, obvious calculi or discernible mass. Left Kidney: Normal in size and echogenicity. Length 12.7 cm. Nohydronephrosis, obvious calculi or discernible mass. Urinary bladder: Partially distended and grossly normal. IMPRESSION: No hydronephrosis CRITICAL RESULT: No. COMMUNICATION: Per this written report. Drafted by Shalini Sharpe MD on 02/07/2025 11:58 AM Final report signed by Shalini Sharpe MD on 02/07/2025 12:05 PM Rudy Rice MD IM US PROCEDURES Final Result * CT Angio Chest (10/25/2024 5:59 PM EDT) Anatomical Region Laterality Modality Chest Computed Tomogra phy Impressions 10/25/2024 7:42 PM EDT CTA chest: No evidence of aneurysm or dissection. CT ABDOMEN: Prior aortobiiliac stents spanning an infrarenal abdominal aortic aneurysm. Stent is patent. stable thrombosed exo sac. No evidence of graft leak or rupture. Significant ostial atherosclerosis resulting in severe stenosis of the left renal artery. No occlusion. Interval mild right hydronephrosis and hydroureter without obstructing stone. There is associated delayed right nephrogram. Mild right perinephric fat stranding could be reactive or superimposed infection. CRITICAL RESULT: No. COMMUNICATION: Per this written report. Drafted by Mallory Roberson MD on 10/25/2024 7:17 PM Final report signed by Mallory Roberson MD on 10/25/2024 7:42 PM Narrative 10/25/2024 7:42 PM EDT CLINICAL INDICATION: hx AAA w/ acute onset abdominal/back pain TECHNIQUE: Imaging of the chest abdomen and pelvis was performed, from thoracic inlet through pubic symphysis, using spiral technique, following administration of IV contrast, Omnipaque 350, 100 mL according to the CTA thoracic aorta/chest and CTA Abdomen/Pelvis protocol. Reformatted images in the coronal, sagittal, and oblique planes were generated from the axial data set to facilitate diagnostic accuracy. In addition, 3D images were created and reviewed. Total DLP (Dose-Length Product): 2484.14 mGy.cm (accession [id number]), 2484.14 mGy.cm (accession [id number]). Please note: The reported value represents the total of one or more individual components during the CT acquisition on this date and at this time, and as such, the same value may appear in more than one CT report depending on the interpreting/reporting physicians. COMPARISON: October 23, [address] FINDINGS: Chest: Aorta/Vessels: Atherosclerosis without aneurysm or dissection. Prior CABG, patent graft. Triple vessel coronary atherosclerosis. No periaortic hematoma. No filling defect within the pulmonary arteries to suggest pulmonary embolism. Pleural/Pericardial Space: No pneumothorax. No pleural effusions. No pericardial effusion. Lymph Nodes: No lymphadenopathy within the chest. Lungs: Except for minimal dependent atelectasis, the lungs are clear. Mediastinum: Otherwise unremarkable. Chest wall: No chest wall hematoma or contusion. Bones: No acute fracture within the chest. Abdomen: Vessels: Prior aortobiiliac stent that appears patent. Similar thrombosed exo sac. No evidence of leak or rupture. Exo sac measures up to 6 cm, similar to prior. Chronic infrarenal calcified dissection flap Significant atherosclerosis of the proximal SMA. Moderate thrombus burden resulting in mild stenosis without occlusion. SANDRO is patent. Ostial atherosclerosis of the left renal artery with mild stenosis. Right renal artery is patent. Liver/Gallbladder/Biliary System: The liver demonstrates homogeneous enhancement. Cholelithiasis without cholecystitis. No intra- or extra-hepatic biliary ductal dilatation. Spleen: The spleen enhances homogeneously. Pancreas: The pancreas enhances homogeneously. Adrenals: The adrenals are morphologically unremarkable. Kidneys: Mild right perinephric fat stranding. Mild right hydronephrosis and hydroureter without obstructing stones. Left kidney is unremarkable. No left hydronephrosis. Bowel/Mesentery: The small bowel loops are not dilated. The large bowel loops are not dilated. The appendix is visualized and normal. No pneumoperitoneum or intra-abdominal fluid collections. Lymph Nodes: No lymphadenopathy within the abdomen or pelvis. Fluid Survey: No free fluid in the abdomen. No free fluid in the pelvis. Pelvis: No pelvic masses. Urinary bladder unremarkable. Body Wall: Normal. Bones: Chronic deformity of the right posterior acetabulum with remodeling. Procedure Note Mallory Roberson MD - 10/25/2024 CLINICAL INDICATION: hx AAA w/ acute onset abdominal/back pain TECHNIQUE: Imaging of the chest abdomen and pelvis was performed, from thoracic inletthrough pubic symphysis, using spiral technique, following administrationof IV contrast, Omnipaque 350, 100 mL according to the CTA thoracicaorta/chest and CTA Abdomen/Pelvis protocol. Reformatted images in thecoronal, sagittal, and oblique planes were generated from the axial dataset to facilitate diagnostic accuracy. In addition, 3D images were createdand reviewed. Total DLP (Dose-Length Product): 2484.14 mGy.cm (accession [id number]),2484.14 mGy.cm (accession [id number]). Please note: The reported valuerepresents the total of one or more individual components during the CTacquisition on this date and at this time, and as such, the same value mayappear in more than one CT report depending on the interpreting/reportingphysicians. COMPARISON: October 23, [address] FINDINGS: Chest: Aorta/Vessels: Atherosclerosis without aneurysm or dissection. Prior CABG,patent graft. Triple vessel coronary atherosclerosis. No periaortichematoma. No filling defect within the pulmonary arteries to suggestpulmonary embolism. Pleural/Pericardial Space: No pneumothorax. No pleural effusions. Nopericardial effusion. Lymph Nodes: No lymphadenopathy within the chest. Lungs: Except for minimal dependent atelectasis, the lungs are clear. Mediastinum: Otherwise unremarkable. Chest wall: No chest wall hematoma or contusion. Bones: No acute fracture within the chest. Abdomen: Vessels: Prior aortobiiliac stent that appears patent. Similar thrombosedexo sac. No evidence of leak or rupture. Exo sac measures up to 6 cm,similar to prior. Chronic infrarenal calcified dissection flap Significant atherosclerosis of the proximal SMA. Moderate thrombus burdenresulting in mild stenosis without occlusion. SANDRO is patent. Ostialatherosclerosis of the left renal artery with mild stenosis. Right renalartery is patent. Liver/Gallbladder/Biliary System: The liver demonstrates homogeneousenhancement. Cholelithiasis without cholecystitis. No intra- orextra-hepatic biliary ductal dilatation. Spleen: The spleen enhances homogeneously. Pancreas: The pancreas enhances homogeneously. Adrenals: The adrenals are morphologically unremarkable. Kidneys: Mild right perinephric fat stranding. Mild right hydronephrosisand hydroureter without obstructing stones. Left kidney is unremarkable.No left hydronephrosis. Bowel/Mesentery: The small bowel loops are not dilated. The large bowelloops are not dilated. The appendix is visualized and normal. Nopneumoperitoneum or intra- abdominal fluid collections. Lymph Nodes: No lymphadenopathy within the abdomen or pelvis. Fluid Survey: No free fluid in the abdomen. No free fluid in the pelvis. Pelvis: No pelvic masses. Urinary bladder unremarkable. Body Wall: Normal. Bones: Chronic deformity of the right posterior acetabulum withremodeling. IMPRESSION: CTA chest: No evidence of aneurysm or dissection. CT ABDOMEN: Prior aortobiiliac stents spanning an infrarenal abdominal aorticaneurysm. Stent is patent. stable thrombosed exo sac. No evidence of graftleak or rupture. Significant ostial atherosclerosis resulting in severe stenosis of theleft renal artery. No occlusion. Interval mild right hydronephrosis and hydroureter without obstructingstone. There is associated delayed right nephrogram. Mild rightperinephric fat stranding could be reactive or superimposed infection. CRITICAL RESULT: No. COMMUNICATION: Per this written report. Drafted by Mallory Roberson MD on 10/25/2024 7:17 PM Final report signed by Mallory Roberson MD on 10/25/2024 7:42 PM Yasmin Duarte MD IMG CT PROCEDURES Final Result * Hepatitis C Antibody - ED (10/25/2024 3:04 PM EDT) Hepatitis C Antibody Negative Negative 10/25/2024 4:33 PM EDT [facility] Blood Venous blood specimen / Unknown Venipuncture / Unknown 10/25/2024 3:04 PM EDT 10/25/2024 3:46 PM EDT us Sanchez Burkett MD LAB BLOOD ORDERABLES Final Result Performing Organization Address City/[facility]/ZIP Co de Phone Number [facility] [address] [place] [address] * (ABNORMAL) Hemoglobin A1c (05/13/2023 12:22 AM EST) Hemoglobin A1c 9.2(H) <5.7 % 05/13/2023 1:56 PM EST [facility] Blood Venous blood specimen / Unknown Venipuncture / Unknown 05/13/2023 12:22 AM EST 05/13/2023 12:47 AM EST Narrative [facility] - 05/13/2023 1:56 PM EST [facility]1C Interpretive Data: Diagnosis of Diabetes: Diabetic > or = 6.5% Pre-diabetic 5.7 to 6.4% Non-diabetic < or = 5.6% Glycemic Targets for Type I and Type II Diabetics: Non- Adults <7.0% Adults <6.0% Children and Adolescents <7.5% Source: [place] [employer]. Standards of medical care in diabetes,2017. Diabetes Care.2017:40 (suppl 1):S1-S135. HbA1c assay performed by an ion-exchange chromatography method that is certified traceable to the DCCT. 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 Yes * Full Code Date Activated Date Inactivated Comments 05/12/2023 11:04 AM 05/19/2023 8:05 PM Question Answer Comments Patient has decision-making capacity? Yes Care Teams Manager Fiber Relationship Specialty Start Date End Date Robert Reilly MD [address] [place] [address] PCP - General 10/25/24 Laura Atkinson PA [id number] [place] [address] Physician Schedule Analyst Urology 02/07/25
--- OUTSIDE RECORDS SUMMARY | 2025-04-26 11:27 | XMS_ITS | Encounter Summary ---
Author Organization [facility] Address [address] [place] [address] Care Team Providers Care Structural Layout Worker Name Role Phone Robert Reilly MD Primary Care Provider [phone]- [phone] Reason for Visit * Reason Onset Date Comments CRISTINE PORTILLO - DENTAL WORK 02/14/2025 Encounter Details Date Type Department Care Team (Late st Contact Info) Description 02/14/2025 Telephone [facility] [address] [facility] [address] [place] [address] Cristine Portillo, YOLANDA [address] [facility] [address] [address] CRISTINE PORTILLO - DENTAL WORK Social History Tobacco Use Types Packs/Day Years Used Date Smoking Tobacco: Every Day Cigarettes Passive Smoke Exposure: Current Smokeless Tobacco: Current Alcohol Use Standard Drinks/Week Comments Never 0 (1 standard drink = 0.6 oz pur e alcohol) [facility] Utilities Answer Date Recorded In the past 12 months has [employer], gas, oil, or water [employer] threatened to shut off services in your [...] care, and heating? Not very hard 07/09/[address] [facility] - Occupational Stress Questionnaire Answer Date Recorded [...] GED or equivalent No 07/09/2024 Preferred Language Saudi Arabian 07/09/2024 PHQ-2 Answer Date Recorded Patient Health Questionnaire-2 Score 0 01/31/2025 Sex and Gender Information Value Date Recorded Sex Assigned at Not on file Legal Sex Male 11:06 AM EDT Gender Identity Not on file Sexual Orientation Not on file documented as of this encounter Miscellaneous Notes * Telephone Encounter - Sandra Saba RegSched Rep - 02/14/2025 1:46 PM EDT Provider: CRISTINE PORTILLO Caller: Chinmay Gomes Relationship to Patient: Self Reason for Call: STATES HE IS NEEDING TO HAVE SOME DENTAL WORK / EXTRACTIONS DONE. WAS ADVISED BY PCP TO SEE IF A [employer]OV[employer] BRIDGE MAY WORK FOR HIM THE DENTIST ADVISED HE WOULD NEED TO STOP HIS BLOOD THINNERS. PLEASE REVIEW & ADVISE, THANK YOU. documented in this encounter Plan of Treatment Upcoming Encounters Date Type Department Care Team (Late st Contact Info) Description 07/04/2025 9:30 AM EST Office Visit [facility] [address] [facility] [address] [place] [address] Pepper Koch MD [address] [facility] [address] [place] [address] 08/03/2025 1:00 PM EST Office Visit [facility] [address] [facility] [address] [place] [phone] Cristine Portillo, OFFICE EMPLOYEE [address] [facility] [address] [place] [phone] documented as of this encounter Visit Diagnoses Not on filedocumented in this encounter Care Teams Structural Layout Worker Relationship Specialty Start Date End Date Robert Reilly MD [address] [place], [place] [id number] PCP - General Family Medicine 01/31/25 documented as of this encounter
--- OUTSIDE RECORDS SUMMARY | 2025-04-26 11:27 | XMS_ITS | Clinical Summary ---
Author Organization [facility] Address [address] [place] [address] Care Team Providers Care Lawn Care Worker Name Role Phone Robert Reilly MD Primary Care Provider +1- [phone] Allergies No known active allergies Medications * This document contains information received from the source organization and may not represent a complete record from that organization. amLODIPine (NORVASC) 10 MG tablet Take 0.5 tablets by mouth Daily. Active carvedilol (COREG) 12.5 MG tablet Take 1 tablet by mouth 2 (Two) Times a Day With Meals. Active gabapentin (NEURONTIN) 800 MG tablet Take 1 tablet by mouth 3 (Three) Times a Day. Active HYDROcodone-kathryn taminophen (NORCO) 7.5-325 MG per tablet Take 1 tablet by mouth Every 6 (Six) Hours As Needed for Moderate Pain. Active insulin glargine (LANTUS, SEMGLEE) 100 UNIT/ML injection Inject 26 Units under the skin into the appropriate area as directed Every Night. Active lisinopril (PRINIVIL,ZESTR IL) 20 MG tablet Take 1 tablet by mouth Daily. Active pantoprazole (PROTONIX) 40 MG EC tablet Take 1 tablet by mouth Daily. Active acetaminophen (TYLENOL) 325 MG tablet Take 2 tablets by mouth Every 6 (Six) Hours As Needed for Mild Pain. 5 Active aspirin 81 MG EC tablet Take 1 tablet by mouth Daily. 90 tablet 5 Active levETIRAcetam (KEPPRA) 750 MG tablet Take 1 tablet by mouth Every 12 (Twelve) Hours. 60 tablet 07/10/2024 12:48 PM EST 5 Active atorvastatin (LIPITOR) 80 MG tablet Take 1 tablet by mouth Every Night. 90 tablet 07/10/2024 12:48 PM EST 5 Active ticagrelor (BRILINTA) 90 MG tablet tablet Take 1 tablet by mouth 2 (Two) Times a Day. 60 tablet 07/10/2024 12:48 PM EST 5 Active nicotine (NICODERM CQ) 21 MG/24HR patch Place 1 patch on the skin as directed by provider Daily. 30 patch 5 Active nicotine polacrilex (NICORETTE) 4 MG gum Chew 1 each Every 1 (One) Hour As Needed for Smoking Cessation. 30 each 5 Active Additional Information Patient not taking.Reported on 01/31/2025 buPROPion XL (WELLBUTRIN XL) 150 MG 24 hr tablet 5 Active Continuous Glucose Sensor (Dexcom G7 Sensor) misc 5 Active promethazine (PHENERGAN) 12.5 MG tablet 5 Active clotrimazole-be tamethasone (LOTRISONE) 1-0.05 % cream Apply topically to the appropriate area as directed. 5 Active HumuLIN N KwikPen 100 UNIT/ML injection 5 Active ipratropium-alb uterol (DUO-NEB) 0.5-2.5 mg/3 ml nebulizer 5 Active metFORMIN (GLUCOPHAGE) 1000 MG tablet 5 Active Januvia 100 MG tablet 5 Active Active Problems Problem Noted Date Diagnosed Date Stroke 07/08/2024 Type 2 diabetes mellitus 07/08/2024 BMI 30.0-30.9,adult 07/08/2024 Hx of CABG 07/08/2024 Seizure 07/08/2024 Encounters Date Type Department Care Team Description 02/15/2025 Telephone [facility] [address] [facility] [address] [place] [address] Pepper Gutierrez MD APPOINTMENT, DR. GUTIERREZ 02/14/2025 Telephone [facility] [address] [facility] [address] [place] [phone] Cristine Portillo APRN CAROLINE MEYER - DENTAL WORK 01/31/2025 2:30 PM EDT Office Visit [facility] [address] [facility] [address] [place] [phone] Randi Tinoco APRN History of stroke (Primary Dx); Intracranial atherosclerosis; Seizure; Type 2 diabetes mellitus with hyperglycemia, with long-term current use of insulin; Hyperlipidemia LDL goal <70; Hypertension, unspecified type 01/31/2025 Travel from Last 3 Months Social History Tobacco Use Types Packs/Day Years Used Date Smoking Tobacco: Every Day Cigarettes Passive Smoke Exposure: Current Smokeless Tobacco: Current Tobacco Cessation:Ready to Q uit: Yes; Counseling Given: No Alcohol Use Standard Drinks/Week Comments Never 0 (1 standard drink = 0.6 oz pur e alcohol) [facility] Utilities Answer Date Recorded In the past 12 months has [employer], gas, oil, or water [employer] threatened to shut off services in your [...] care, and heating? Not very hard 07/09/2024 [facility] [place] [facility] Occupat ional Health - Occupational Stress Questionnaire Answer Date Recorded [...] GED or equivalent No 07/09/2024 Preferred Language Cambodian 07/09/2024 PHQ-2 Answer Date Recorded Patient Health Questionnaire-2 Score 0 01/31/2025 Sex and Gender Information Value Date Recorded Sex Assigned at Not on file Legal Sex Male 11:06 AM EDT Gender Identity Not on file Sexual Orientation Not on file Last Filed Vital Signs Vital Sign Reading Time Taken Comments Blood Pressure 128/64 01/31/2025 2:26 PM EDT Pulse 77 01/31/2025 2:26 PM EDT Temperature 37.1 C (98.7 F) 01/31/2025 2:26 PM EDT Respiratory Rate 16 07/10/2024 9:30 AM EST Oxygen Saturation 96% 01/31/2025 2:26 PM EDT Inhaled Oxygen Concentration - - Weight 103 kg (228 lb) 01/31/2025 2:26 PM EDT Height 177.8 cm (5' 10 ) 01/31/2025 2:26 PM EDT Body Mass Index 32.71 01/31/2025 2:26 PM EDT Plan of Treatment Upcoming Encounters Date Type Department Care Team (Late st Contact Info) Description 07/04/2025 9:30 AM EST Office Visit [facility] [address] [facility] [address] [place] [phone] Pepper Gutierrez MD [address] [facility] [address] [place] [id number] 08/03/2025 1:00 PM EST Office Visit [facility] [address] [facility] [address] [place] [address] Cristine Portillo APRN [address] [facility] [address] [place] [phone] Health Maintenance Due Date Last Done Comments COVID-19 Vaccine (#1) 1961 DIABETIC EYE EXAM 1966 DIABETIC FOOT EXAM 1966 URINE MICROALBUMIN-CREATININ E RATIO (uACR) 1966 TDAP/TD VACCINES (1 - Tdap) 1975 COLOGUARD 2001 COLON CANCER SCREENING 5 YEA R SIGMOIDOSCOPY 2001 COLONOSCOPY [address] CANCER SCREENING 2001 CT COLONOGRAPHY 2001 FECAL OCCULT BLOOD TEST 2001 FIT Testing (1 year) 2001 ZOSTER VACCINE (1 of 2) 2006 ANNUAL WELLNESS VISIT 11/26/2016 HEMOGLOBIN A1C 01/06/2025 07/09/2024, 04/30, 05/13/2023 INFLUENZA VACCINE 01/28/2025 LIPID PANEL 07/09/2025 07/09/2024 Pneumococcal Vaccine 50+ (3 of 3 - PCV20 or PCV21) 05/27/2027 05/27/2022, 02/05/2017, 05/26/2014 HEPATITIS C SCREENING Completed 10/25/2024 AAA SCREEN ONCE Completed 02/07/2025, 10/29, 11/23/2024, Additional history exists Procedures Procedure Name Priority Date/Time Associated Diagnosis Comments HEMOGLOBIN A1C Routine 07/09/2024 11:02 AM EST LIPID PANEL Routine 07/09/2024 11:02 AM EST from Last 3 Months or Most Recently Relevant to Health Maintenance Results * (ABNORMAL) Hemoglobin A1c (07/09/2024 11:02 AM EST) Hemoglobin A1C 11.40(H) 4.80 - 5.60 % 07/09/2024 12:25 PM EST [facility] Blood Venipuncture / Unknown 07/09/2024 11:02 AM EST 07/09/2024 11:43 AM EST Narrative [facility] - 07/09/2024 12:25 PM EST Hemoglobin A1C Ranges: Increased Risk for Diabetes 5.7% to 6.4% Diabetes >= 6.5% Diabetic Goal < 7.0% us Rima Christian INTERNET MARKETING STRATEGIST LAB BLOOD ORDERABLES Final R esult [facility]
[address] [place] [address], [place] [phone] * (ABNORMAL) Lipid Panel (07/09/2024 11:02 AM EST) Total Cholesterol 166 0 - 200 mg/dL 07/09/2024 11:59 AM EST [facility] Triglycerides 201(H) 0 - 150 mg/dL 07/09/2024 11:59 AM EST [facility] HDL Cholesterol 46 40 - 60 mg/dL 07/09/2024 11:59 AM EST [facility] LDL Cholesterol 86 0 - 100 mg/dL 07/09/2024 11:59 AM EST [facility] VLDL Cholesterol 34 5 - 40 mg/dL 07/09/2024 11:59 AM EST [facility] LDL/HDL Ratio 1.73 07/09/2024 11:59 AM EST [facility] Blood Venipuncture / Unknown 07/09/2024 11:02 AM EST 07/09/2024 11:31 AM EST [facility] - 07/09/2024 11:59 AM EST Cholesterol Reference Ranges (U.S. Department of Health and Human Services ATP III Classifications) Desirable <200 mg/dL Borderline High 200-239 mg/dL High Risk >240 mg/dL Triglyceride Reference Ranges (U.S. Department of Health and Human Services ATP III Classifications) Normal <150 mg/dL Borderline High 150-199 mg/dL High 200-499 mg/dL Very High >500 mg/dL HDL Reference Ranges (U.S. Department of Health and Human Services ATP III Classifications) Low <40 mg/dl (major risk factor for CHD) High >60 mg/dl ('negative' risk factor for CHD) LDL Reference Ranges (U.S. Department of Health and Human Services ATP III Classifications) Optimal <100 mg/dL Near Optimal 100-129 mg/dL Borderline High 130-159 mg/dL High 160-189 mg/dL Very High >189 mg/dL Rima Christian APRN LAB BLOOD ORDERABLES Final R esult [facility]
[address] [place] [address], from Last 3 Months or Most Recently Relevant to Health Maintenance Insurance [facility] MEDICARE ADVANTAGE HMO Advance Directives * CPR (Attempt to Resuscitate) (Latest Code Status on File) Date Activated Date Inactivated Comments 07/08/2024 10:38 AM 07/10/2024 3:20 PM Question Answer Comments Code Status (Patient has no pulse and is not breathing): CPR (Attempt to Resuscitate) Medical Interventions (Patie nt has pulse or is breathing): Full Support Comments: presumed full, call out to family no response Care Teams Lawn Care Worker Relationship Specialty Start Date End Date Robert Reilly MD [address] [place] [address] PCP - General Family Medicine 01/31/25
--- OUTSIDE RECORDS SUMMARY | 2025-04-26 12:25 | XMS_ITS | CCD ---
Author Organization Unknown Care Team Providers Care Manager Rfid Name Role Phone Non Engaged, [facility] Primary Care Provider Unav ailable Unavailable Chronic Care Management Unavaila ble Summary Purpose DataExchange Insurance Providers Payer name Policy type / Coverage type Covered libertarian ID Effective Begin Date Effective End Date [facility] [id number] Unknown Unknown Family History Family History data not found Medication Administered No Medication Administered data Reason For Visit No Reason For Visit data Medical Equipment No Medical Equipment data Advance Directives No Advance Directive data
--- OUTSIDE RECORDS SUMMARY | 2025-04-26 12:25 | XMS_ITS | CCD ---
Author Organization Unknown Care Team Providers Care Duplicator Punch Set Up Operator Name Role Phone Non Engaged, [facility] Primary Care Provider Unav ailable Unavailable Chronic Care Management Unavaila ble Summary Purpose DataExchange Insurance Providers Payer name Policy type / Coverage type Covered alliance party ID Effective Begin Date Effective End Date [facility] [id number] Unknown Unknown Family History Family History data not found Medication Administered No Medication Administered data Reason For Visit No Reason For Visit data Medical Equipment No Medical Equipment data Advance Directives No Advance Directive data
== END 2025-04-25 23:59 ==
LOC: LAB.DROPOF 04-26 11:21
PROVIDERS: PCP Family Medicine; Visit Provider Family Medicine
DX: D64.9 Anemia, unspecified (principal); E11.9 Type 2 diabetes mellitus without complications
CPT/HCPCS: 80053; 80061; 83036; 85025

== ENCOUNTER 2025-06-01 07:45 | Outpatient (CLI) | payer MEDICARE, SELFPAY ==
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
--- OUTSIDE RECORDS SUMMARY | 2025-06-01 07:47 | XMS_ITS | Clinical Summary ---
Author Organization Healthcare Address [address] [place] [address] Care Team Providers Care Neurocritical Care Physician Name Role Phone Robert Reilly MD Primary Care Provider + [phone] Laura Atkinson Unavailable [phone] Allergies Active Allergy Reactions Criticality Noted Date Comments Vancomycin Shortness of breath High 08/19/2023 [place] hard to breathe immed after starting - no hemodynamic changes or rash - some bronchospasm. Medications gabapentin (Neurontin) 800 MG tablet Take 1 tablet (800 mg) by mouth 4 (four) times a day. 1 Active HYDROcodone-kathryn taminophen (Brandeis) 7.5-325 MG tablet Take 1 tablet (7.5 [...] tablet 5 4 Active Continuous Blood Gluc Spindle Frame Carver (Dexcom G7 Spindle Frame Carver) device 4 Active Continuous Blood Gluc Sensor [...] wound infection 05/07/2023 08/20/2023 Microalbuminuria 11/21/2020 08/20/2023 Immunizations Immunization Administration Dates Next Due Pneumococcal [...] Date Smoking Tobacco: Every Day Cigarettes 1 50.9 Started: 1973 Passive Smoke Exposure: Current Smokeless [...] place to sleep or slept in a detention (including now)? No 05/13/2023 PHQ-9 Answer Date [...] drink first t shanta in the morning (EYE-EMPLOYMENT COORDINATOR) to steady your nerves or to get [...] EDT Appointment [facility] [address] [place] [address] 02/20/2026 2:10 PM EDT Office Visit [facility] [address] [place] [address] Laura Atkinson PA [address] [place] [address] Health Maintenance Due Date Last Done Comments [facility]icare Annual Wellness (AWV) 1955 [facility]-Infant/Child/Adol SDOH Screenings 1955 Diabetes: Dental Exam 1966 [...] - Risk 60-74 years 1-dose series) 2016 [facility]-Abdominal Aortic Aneurysm (AAA) Screening 2021 [facility]-Diabetes: Hemoglobin A1C 10/08/2024 07/09/2024, 05/13/2023 [id number] Vaccine (1 - season) 2025 [facility]-Influenza Vaccine [...] this topic Medical Devices Implanted Type Area Water Sponger Device Identifier Shelf Expiration Date Model / Serial / Lot Stent Ureteral Double Pigtail Pos 6fr 26cm - [id number] Implanted:Qty: 1 on 11/01/2024 by Rudy Rice MD at [facility] Stent Right: [id number] 07/05/2027 [id number] / / Description:Used sub ref# [id number] Endurant Iis Bifurcated [id number] - [id number] Implanted:Qty: 1 on 08/19/2023 by Kia Osborn MD at [facility]-[id number] 06/09/2025 [id number] / [id number] / [id number] Endurant Ii Contra Limb [id number] - [id number] Implanted:Qty: 1 on 08/19/2023 by Kia Osborn MD at [facility]-[id number] 03/16/2025 [id number] / [id number] / [id number] Endurant Ii Contra Limb [id number] - [id number] Implanted:Qty: 1 on 08/19/2023 by Kia Osborn MD at [id number] 03/10/2025 [id number] / / [id number] Procedures Procedure Name Priority Date/Time Associated Diagnosis Comments CT ANGIO CHEST STAT 10/25/2024 5:59 PM EDT HEPATITIS C ANTIBODY - ED W/REFLEX TO HCV QUANT PCR STAT 10/25/2024 3:04 PM EDT HEMOGLOBIN A1C Add-On 05/13/2023 12:22 AM EST from Last 3 Months or Most Recently Relevant to Health Maintenance Results * CT Angio Chest (10/25/2024 5:59 PM [...] Total DLP (Dose-Length Product): 2484.14 mGy.cm (accession [id number]), 2484.14 mGy.cm (accession [id number]). Please note: The reported value represents the [...] Total DLP (Dose-Length Product): 2484.14 mGy.cm (accession [id number]),2484.14 mGy.cm (accession [id number]). Please note: The reported valuerepresents the total [...] Mallory Roberson MD on 10/25/2024 7:42 PM us Yasmin Duarte MD IMG CT PROCEDURES Final Result * Hepatitis C Antibody - ED (10/25/2024 3:04 PM EDT) Hepatitis C Antibody Negative Negative 10/25/2024 4:33 PM EDT [facility] Blood Venous blood specimen / Unknown Venipuncture / Unknown 10/25/2024 3:04 PM EDT 10/25/2024 3:46 PM EDT us Sanchez Burkett MD LAB BLOOD ORDERABLES Final Result [facility] [address] [place] [address] * (ABNORMAL) Hemoglobin A1c (05/13/2023 12:22 AM EST) Hemoglobin A1c 9.2(H) <5.7 % 05/13/2023 1:56 PM EST [facility] Blood Venous blood specimen / Unknown Venipuncture / Unknown 05/13/2023 12:22 AM EST 05/13/2023 12:47 AM EST Narrative [facility] - 05/13/2023 1:56 PM EST HA1C Interpretive Data: Diagnosis of Diabetes: Diabetic > or = 6.5% Pre-diabetic 5.7 to 6.4% Non-diabetic < or = 5.6% Glycemic Targets for Type I and Type II Diabetics: Non- Adults <7.0% Adults <6.0% Children and Adolescents <7.5% Source: [place] [employer]. Standards of medical care in diabetes,2017. Diabetes Care.2017:40 (suppl 1):S1-S135. HbA1c assay performed by an ion-exchange chromatography method that is certified traceable to the DCCT. us Jose Martinez MD LAB BLOOD ORDERABLES Final R esult [facility] [address] [place] [address] from Last 3 Months or Most Recently Relevant to Health Maintenance Additional Health Concerns Infection Onset Date Last Indicated MRSA 05/12/2023 05/12/2023 Insurance MEDICARE Advance Directives * Full Code (Latest Code Status on File) Date Activated Date Inactivated Comments 08/19/2023 10:11 AM 08/20/2023 5:32 PM Question Answer Comments Patient has decision-making capacity? Yes * Full Code Date Activated Date Inactivated Comments 05/12/2023 11:04 AM 05/19/2023 8:05 PM Question Answer Comments Patient has decision-making capacity? Yes Care Teams Neurocritical Care Physician Relationship Specialty [place] [address] PCP - General 10/25/24 Laura Atkinson PA [address] [facility] [address] [place] [address] Stenographer Urology 02/07/25
--- OUTSIDE RECORDS SUMMARY | 2025-06-01 07:48 | XMS_ITS | CCD ---
Author Organization Unknown Care Team Providers Care Concession Supervisor Name Role Phone Non Engaged, [facility] Primary Care Provider Unav ailable Unavailable Chronic Care Management Unavaila ble Summary Purpose DataExchange Insurance Providers Payer name Policy type / Coverage type Covered green party ID Effective Begin Date Effective End Date [facility] [id number] Unknown Unknown Family History Family History data not found Medication Administered No Medication Administered data Reason For Visit No Reason For Visit data Medical Equipment No Medical Equipment data Advance Directives No Advance Directive data
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
--- OUTSIDE RECORDS SUMMARY | 2025-06-01 07:48 | XMS_ITS | Clinical Summary ---
Author Organization [facility] Address [address] [place] [address] Care Team Providers Care Fuel Quality Tech Name Role Phone Robert Reilly MD Primary Care Provider [phone] Allergies No known active allergies Medications * [...] 07/08/2024 Hx of CABG 07/08/2024 Seizure 07/08/2024 Social History Tobacco Use Types Packs/Day Years Used Date Smoking Tobacco: Every Day Cigarettes Passive Smoke Exposure: Current Smokeless Tobacco: Current Tobacco Cessation:Ready to Q uit: Yes; Counseling Given: No Alcohol Use Standard Drinks/Week Comments Never 0 (1 standard drink = 0.6 oz pur e alcohol) [facility] Utilities Answer Date Recorded In the [...] care, and heating? Not very hard 07/09/2024 [facility] - Occupational Stress [...] GED or equivalent No 07/09/2024 Preferred Language Tanzanian 07/09/2024 PHQ-2 Answer Date Recorded Patient Health [...] Description 07/04/2025 9:30 AM EST Office Visit [facility] [address] [facility] [facility] [address] [place] [address] Pepper Koch MD [address] [place] [phone] 08/03/2025 1:00 PM EST Office Visit [facility] [address] [address] [place], [place] [id number] Cristine Portillo, [employer] INST[employer]ER [address] [facility] [address] [address] Health Maintenance Due Date Last Done Comments [...] - 5.60 % 07/09/2024 12:25 PM EST [facility] Blood Venipuncture / Unknown 07/09/2024 11:02 AM EST 07/09/2024 11:43 AM EST Narrative [facility] - 07/09/2024 12:25 PM EST Hemoglobin A1C Ranges: Increased Risk for Diabetes 5.7% to 6.4% Diabetes >= 6.5% Diabetic Goal < 7.0% Rima Christian [employer] LAB BLOOD ORDERABLES Final R esult [facility]
[address] [place] [address], * (ABNORMAL) Lipid Panel (07/09/2024 11:02 AM EST) Total Cholesterol 166 0 - 200 mg/dL 07/09/2024 11:59 AM EST [facility] Triglycerides 201(H) 0 - 150 mg/dL 07/09/2024 11:59 AM EST [facility] HDL Cholesterol 46 40 - 60 mg/dL 07/09/2024 11:59 AM EST [facility] LDL Cholesterol 86 0 - 100 mg/dL 07/09/2024 11:59 AM EST [facility] VLDL Cholesterol 34 5 - 40 mg/dL 07/09/2024 11:59 AM EST [facility] LDL/HDL Ratio 1.73 07/09/2024 11:59 AM EST [facility] Blood Venipuncture / Unknown 07/09/2024 11:02 AM EST 07/09/2024 11:31 AM EST Narrative [facility] - 07/09/2024 11:59 AM EST Cholesterol [...] High 160-189 mg/dL Very High >189 mg/dL us Rima Christian [employer] LAB BLOOD ORDERABLES Final R esult [facility]
[address] [place] [address], from Last 3 Months or Most Recently Relevant to Health Maintenance Insurance [employer] HMO Advance Directives * CPR [...] out to family no response Care Teams Fuel Quality Tech Relationship Specialty Start Date End Date Robert Reilly MD [address] [place] [address] PCP - General Family Medicine 01/31/25
--- NOTE | 2025-06-01 09:30 | US_ITS ---
FINAL REPORT TECHNIQUE: Sonographic images of the right upper quadrant were obtained. CLINICAL HISTORY: cholelithiasis, nausea FINDINGS: PANCREAS: Unremarkable. LIVER: Fatty infiltrated. Enlarged measuring 19 mm. Lesion in the right lobe of the liver shows peripherally increasing echogenicity with central decreased echogenicity and is nonspecific. No additional liver lesions identified.. No intrahepatic biliary ductal dilatation. GALLBLADDER: Mildly distended. No gallstones. No gallbladder wall thickening or pericholecystic fluid. COMMON DUCT: 1-2 mm. Normal for age. RIGHT KIDNEY: Please see renal ultrasound FREE FLUID: None. IMPRESSION: Fatty liver. 19 mm liver lesion. Consider MRI liver protocol. Reviewed, Interpreted and Dictated by Skyla Langston MD Transcribed by Yasmin Monterroso Authenticated and [facility]
== END 2025-06-01 23:59 | disposition home or self-care (01) ==
LOC: RAD 07:45
PROVIDERS: PCP Family Medicine; Visit Provider Family Medicine
DX: K76.0 Fatty (change of) liver, not elsewhere classified (principal); K76.89 Other specified diseases of liver; K80.20 Calculus of gallbladder without cholecystitis without obstruction
CPT/HCPCS: 76705

== ENCOUNTER 2025-06-02 09:05 | Outpatient (CLI) | payer MEDICARE, SELFPAY ==
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
--- OUTSIDE RECORDS SUMMARY | 2025-06-02 09:16 | XMS_ITS | Clinical Summary ---
Author Organization [facility] Address [address] [place] [address] Care Team Providers Care Bread Dumper Name Role Phone Robert Reilly MD Primary Care Provider [phone] Allergies No known active allergies Medications * [...] drink = 0.6 oz pur e alcohol) [facility] Utilities Answer Date Recorded In the past [...] care, and heating? Not very hard 07/09/2024 [facility] - Occupational Stress [...] GED or equivalent No 07/09/2024 Preferred Language Kenyan 07/09/2024 PHQ-2 Answer Date Recorded Patient Health [...] Description 07/04/2025 9:30 AM EST Office Visit [facility] [address] [address] [place] [address] Pepper Koch MD [address] [place] [id number] 08/03/2025 1:00 PM EST Office Visit [facility] [address] [place], [place] [id number] Cristine Portillo, DEHYDRATOR [address] [facility] [address] [address] Health Maintenance Due Date Last [...] - 5.60 % 07/09/2024 12:25 PM EST [facility] Blood Venipuncture / Unknown 07/09/2024 11:02 AM EST 07/09/2024 11:43 AM EST Narrative [facility] - 07/09/2024 12:25 PM EST Hemoglobin A1C Ranges: Increased Risk for Diabetes 5.7% to 6.4% Diabetes >= 6.5% Diabetic Goal < 7.0% Rima Christian DEHYDRATOR LAB BLOOD ORDERABLES Final R esult [facility]
[address] [place] [address], * (ABNORMAL) Lipid Panel (07/09/2024 11:02 AM EST) Total Cholesterol 166 0 - 200 mg/dL 07/09/2024 11:59 AM EST [facility] Triglycerides 201(H) 0 - 150 mg/dL 07/09/2024 11:59 AM EST [facility] HDL Cholesterol 46 40 - 60 mg/dL 07/09/2024 11:59 AM EST [facility] LDL Cholesterol 86 0 - 100 mg/dL 07/09/2024 11:59 AM EST [facility] VLDL Cholesterol 34 5 - 40 mg/dL 07/09/2024 11:59 AM EST [facility] LDL/HDL Ratio 1.73 07/09/2024 11:59 AM EST [facility] Blood Venipuncture / Unknown 07/09/2024 11:02 AM EST 07/09/2024 11:31 AM EST Narrative [facility] - 07/09/2024 11:59 AM EST [...] Very High >189 mg/dL us Rima Christian DEHYDRATOR LAB BLOOD ORDERABLES Final R esult [facility]
[address] [place] [address], from Last 3 Months or Most Recently [...] out to family no response Care Teams Bread Dumper Relationship Specialty Start Date End Date Robert Reilly MD [address] [place] [address] PCP - General Family Medicine 01/31/25
--- OUTSIDE RECORDS SUMMARY | 2025-06-02 09:16 | XMS_ITS | Clinical Summary ---
Author Organization [facility] Address [address] [place] [address] Care Team Providers Care Director Women Name Role Phone Robert Reilly MD Primary Care Provider + [phone] Laura Atkinson Unavailable [phone] Allergies Active Allergy Reactions Criticality Noted Date Comments Vancomycin Shortness of breath High 08/19/2023 Fett hard to breathe immed after starting - no hemodynamic changes or rash - some bronchospasm. Medications gabapentin (Neurontin) 800 MG tablet Take 1 tablet (800 mg) by mouth 4 (four) times a day. 1 Active HYDROcodone-kathryn taminophen ([place]) 7.5-325 MG tablet Take 1 tablet (7.5 [...] tablet 5 4 Active Continuous Blood Gluc Talent Development Specialist (Dexcom G7 Talent Development Specialist) device 4 Active Continuous Blood Gluc Sensor [...] place to sleep or slept in a [facility] (including now)? No 05/13/2023 PHQ-9 Answer Date [...] drink first t shanta in the morning (EYE-EHS MANAGER) to steady your nerves or to get [...] EDT Appointment [facility] [address] [place] [address] 02/20/2026 2:10 PM EDT Office Visit [facility] [address] [place] [address] Laura Atkinson PA [address] [place] [address] Health Maintenance Due Date Last Done Comments [...] 2021 [facility]-Diabetes: Hemoglobin A1C 10/08/2024 07/09/2024, 05/13/2023 [id number] Vaccine (1 - season) 2025 [facility]-Influenza Vaccine [...] this topic Medical Devices Implanted Type Area Mortgage Loan Processor Device Identifier Shelf Expiration Date Model / Serial / Lot Stent Ureteral Double Pigtail Pos 6fr 26cm - [id number] Implanted:Qty: 1 on 11/01/2024 by Rudy Rice MD at [facility] Stent Right: U[id number] 07/05/2027 [id number] / / Description:Used sub ref# [id number] Endurant Iis Bifurcated [id number] - [id number] Implanted:Qty: 1 on 08/19/2023 by Kia Osborn MD at [facility]-[id number] 06/09/2025 [id number] / [id number] / [id number] Endurant Ii Contra Limb [id number] - [id number] Implanted:Qty: 1 on 08/19/2023 by Kia Osborn MD at [facility]-[id number] 03/16/2025 [id number] 24E / [id number] / [id number] Endurant Ii Contra Limb [id number] - [id number] Implanted:Qty: 1 on 08/19/2023 by Kia Osborn MD at [id number] 03/10/2025 [id number] / / [id number] Procedures Procedure Name Priority Date/Time Associated Diagnosis [...] Total DLP (Dose-Length Product): 2484.14 mGy.cm (accession [id number]), 2484.14 mGy.cm (accession [id number]). Please note: The reported value represents the [...] Total DLP (Dose-Length Product): 2484.14 mGy.cm (accession [id number]),2484.14 mGy.cm (accession [id number]). Please note: The reported valuerepresents the total [...] Antibody Negative Negative 10/25/2024 4:33 PM EDT [facility] Blood Venous blood specimen / Unknown Venipuncture / Unknown 10/25/2024 3:04 PM EDT 10/25/2024 3:46 PM EDT us Sanchez Burkett MD LAB BLOOD ORDERABLES Final Result [facility] [address] [place] [address] * (ABNORMAL) Hemoglobin A1c (05/13/2023 12:22 AM [...] Adults <6.0% Children and Adolescents <7.5% Source: [place] [employer]. Standards of medical care in diabetes,2017. Diabetes Care.2017:40 (suppl 1):S1-S135. HbA1c assay performed by an ion-exchange chromatography method that is certified traceable to the DCCT. us Jose Martinez MD LAB BLOOD ORDERABLES Final R esult [facility] [address] [place] [address] from Last 3 Months or Most Recently [...] Patient has decision-making capacity? Yes Care Teams Director Women Relationship Specialty [place] [address] PCP - General 10/25/24 Laura Atkinson PA [address] [facility] [address] [place] [address] Physician Line Runner Urology 02/07/25
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
[2025-06-02 09:26] LABS: Blood Urea Nitrogen 8 mg/dl (9-20); Creatinine,Serum 0.60 mg/dl (0.66-1.25); Estimated Glomerular Filt Rate 134 ml/min (>60); GFR (African American) 162 ML/MIN (>60)
== END 2025-06-02 23:59 | disposition home or self-care (01) ==
LOC: LAB 09:05
PROVIDERS: PCP Family Medicine; Visit Provider Family Medicine
DX: K76.9 Liver disease, unspecified (principal)
CPT/HCPCS: 36415; 82565; 84520

== ENCOUNTER 2025-06-03 07:14 | Outpatient (CLI) | payer MEDICARE, SELFPAY | END 2025-06-03 23:59 | disposition home or self-care (01) | LOC: RAD 07:15 | PROVIDERS: PCP Family Medicine; Visit Provider Family Medicine | DX: K76.9 Liver disease, unspecified (principal) ==

== ENCOUNTER 2025-06-14 07:20 | Outpatient (CLI) | payer MEDICARE, SELFPAY ==
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
--- OUTSIDE RECORDS SUMMARY | 2025-06-14 07:24 | XMS_ITS | Encounter Summary ---
Author Organization Healthcare Address [address] [place] [address] Care Team Providers Care Qm Nurse Name Role Phone Robert Reilly MD Primary Care Provider + [phone] Laura Atkinson PA Unavailable [phone] Reason for Visit * Reason Onset Date Comments HCN Clinical Concern/Question 06/03/2025 Encounter Details Date Type Department Care Team (Late st Contact Info) Description 06/03/2025 Telephone [facility] [address] [facility] [address] [place] [address] Kia Osborn MD [address] [place] [address] HCN Clinical Concern/Question Social History Tobacco Use Types Packs/Day Years Used Date Smoking Tobacco: Every Day Cigarettes 1 51 Started: 1974 Passive Smoke Exposure: Current Smokeless Tobacco: Never Alcohol Use Standard Drinks/Week Comments Never 0 [...] place to sleep or slept in a half-way (including now)? No 05/13/2023 PHQ-9 Answer Date [...] drink first t shanta in the morning (EYE-MANAGER DRUG) to steady your nerves or to get rid of a hangover? 0 05/12/2023 CAGE Questionnaire Score 0 023 Utilities Answer Date Recorded In the past 12 months has th [employer] electric, gas, oil, or water company threatened to shut off services in your home? No 05/13/2023 PHQ-2A Answer Date Recorded Patient Health Questionnaire-2 Score 0 05/07/2023 Sex and Gender Information Value Date Recorded Sex Assigned at Male 05/12/2023 6:19 AM EST Legal Sex Male 7:57 PM EDT Gender Identity Male 05/12/2023 6:19 AM EST Sexual Orientation Not on file documented as of this encounter Miscellaneous Notes * Telephone Encounter - Telma Aparicio RN - 06/03/2025 9:17 AM EST NextInput message sent detailing all implants and serial numbers for patient reference. * Telephone Encounter - Elisabeth Prado - 06/03/2025 8:44 AM EST Clinical Concern/Question Reason for Call: Patient is needing to get a MRI done but not sure what was placed during his surgery and needs clarity Best contact number: [phone] (mobile) Optimal time of day to reach caller: ANYTIME Additional comments/information from caller: None Note: Please do not reply to this message. Follow-up communication and further actions as a result of this message need to be communicated with the patient directly, if the patient is not active onMyChart. If the patient is active on MyChart, they will receive notification of the communication/outcome via NextInput. 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
--- OUTSIDE RECORDS SUMMARY | 2025-06-14 07:24 | XMS_ITS | Clinical Summary ---
Author Organization Healthcare Address [address] [place] [address] Care Team Providers Care Heater Planer Operator Name Role Phone Robert Reilly MD Primary Care Provider + [phone] Laura Atkinson Unavailable [phone] Allergies Active Allergy Reactions Criticality Noted Date Comments Vancomycin Shortness of breath High 08/19/2023 [place]ett hard to breathe immed after starting - no hemodynamic changes or rash - some bronchospasm. Medications gabapentin (Neurontin) 800 MG tablet Take 1 tablet (800 mg) by mouth 4 (four) times a day. 1 Active HYDROcodone-kathryn taminophen (T[place]) 7.5-325 MG tablet Take 1 tablet (7.5 [...] tablet 5 4 Active Continuous Blood Gluc Case Managers (Dexcom G7 Case Managers) device 4 Active Continuous Blood Gluc Sensor [...] Encounters Date Type Department Care Team Description 06/03/2025 Telephone [facility] [address] [place] [address] Kia Osborn MD [facility] Clinical Concern/Question 06/03/2025 Telephone [facility] [address] [place] [address] Kia Osborn MD [facility] Clinical Concern/Question from Last 3 Months Immunizations Immunization Administration [...] drink first t shanta in the morning (EYE-GATE MANAGER) to steady your nerves or to [...] EDT Appointment [facility]iology [address] [place] [address] 02/20/2026 2:10 PM EDT Office Visit [facility] [address] [place] [address] Laura Atkinson, PA [address] [place] [address] Health Maintenance Due Date Last Done Comments [facility]ic[facility] Annual Wellness (AWV) 1955 [facility]-Infant/Child/Adol SDOH Screenings 1956 Diabetes: Dental Exam 1966 [facility]- SDOH Screenings 1974 [facility]-Adult SDOH Screenings 1974 [facility]-DTaP,Tdap,and Td Vaccines (1 - Tdap) 1975 CT Colonography 2001 Colonoscopy 2001 FIT-DNA 2001 FIT 2001 FOBT 2001 Sigmoidoscopy 2001 [facility]-Colorectal Cancer Screening 2001 Lung Cancer Screening Shared Decision Making 2006 [facility]-RSV Vaccine: 60+ Years or (1 - Risk 50-74 years 1-dose series) 2006 [facility]-Zoster Vaccines (1 of 2) 2006 [facility]-Abdominal Aortic Aneurysm (AAA) Screening 2021 [facility]-Diabetes: Hemoglobin A1C 10/08/2024 07/09/2024, 05/13/2023 [id number] Vaccine (1 - season) 2025 [facility]-Influenza Vaccine (#1) 2025 [facility]-Lung Cancer Screening 10/25/2025 10/25/2024 [facility]-Depression Screening 02/07/2026 02/07/2025, 01/28 [facility]-Pneumococcal Vaccine: 50+ Years (3 of 3 - PCV20 or PCV21) 05/27/2027 05/27/2022, 02/05/2017, 05/26/2014 [facility]-Hepatitis C Screening Completed 10/25/2024 [facility]-Obesity Intervention Completed 025, 11/25/2024, 11/02/2024, Additional history exists HPV Vaccines (No Doses Required) Completed [facility]-HIB Vaccines Aged Out No longer e [...] this topic Medical Devices Implanted Type Area Referral Coordinator Device Identifier Shelf Expiration Date Model / Serial / Lot Stent Ureteral Double Pigtail Pos 6fr 26cm - [id number] Implanted:Qty: 1 on 11/01/2024 by Rudy Rice MD at [facility] Stent Right: [id number] 07/05/2027 [id number] / / Description:Used sub ref# [id number] Endurant Iis Bifurcated [id number] - [id number] Implanted:Qty: 1 on 08/19/20[facility]-[id number] 06/09/2025 [id number] / [id number] / [id number] Endurant Ii Contra Limb [id number] - [id number] Implanted:Qty: 1 on 08/19/2023 by Kia Osborn MD at [facility]-[id number] 03/16/2025 [id number] / [id number] / [id number] Endurant Ii Contra Limb [id number] - [id number] Implanted:Qty: 1 on 08/19/2023 [facility]-[id number] 03/10/2025 [id number] / / [id number] Procedures Procedure Name Priority Date/Time Associated Diagnosis [...] Total DLP (Dose-Length Product): 2484.14 mGy.cm (accession [id number]), 2484.14 mGy.cm (accession [id number]). Please note: The reported value represents the [...] Total DLP (Dose-Length Product): 2484.14 mGy.cm (accession [id number]),2484.14 mGy.cm (accession [id number]). Please note: The reported valuerepresents the total [...] on 10/25/2024 7:42 PM Yasmin Duarte MD IM CT PROCEDURES Final Result * Hepatitis C Antibody - ED (10/25/2024 3:04 PM EDT) Hepatitis C Antibody Negative Negative 10/25/2024 4:[address] [facility] Blood Venous blood specimen / Unknown Venipuncture / Unknown 10/25/2024 3:04 PM EDT 10/25/2024 3:46 PM EDT us Sanchez Burkett MD LAB BLOOD ORDERABLES Final Result Performing Organization Address [facility] Co de Phone Number [facility] [address] [place] [address] * (ABNORMAL) Hemoglobin A1c (05/13/2023 12:22 AM EST) Hemoglobin A1c 9.2(H) <5.7 % 05/13/2023 1:56 PM EST [facility] Blood Venous blood specimen / [...] Adults <6.0% Children and Adolescents <7.5% Source: [place] [employer]. Standards of medical care in diabetes,2017. Diabetes Care.2017:40 (suppl 1):S1-S135. HbA1c assay performed by an ion-exchange chromatography method that is certified traceable to the DCCT. us Jose Martinez MD LAB BLOOD ORDERABLES Final R esult Performing Organization Address City/[facility] Co de Phone Number [facility] [address] [place] [address] from Last 3 Months or Most Recently [...] Patient has decision-making capacity? Yes Care Teams Heater Planer Operator Relationship Specialty [place] [id number] PCP - General 10/25/24 Laura Atkinson PA [address] [address] Physician Overnight Babysitter Urology 02/07/25
--- OUTSIDE RECORDS SUMMARY | 2025-06-14 07:24 | XMS_ITS | Encounter Summary ---
Author Organization Healthcare Address [address] [place] [address] Care Team Providers Care Strap Folding Machine Operator Name Role Phone Robert Reilly MD Primary Care Provider + [phone] Laura Atkinson PA Unavailable [phone] Reason for Visit * Reason Onset Date Comments [facility] Clinical Concern/Question 06/03/2025 Encounter Details Date Type Department Care Team (Late st Contact Info) Description 06/03/2025 Telephone [facility] [address] [facility] 5th Floor [address] [place] [address] Kia Osborn MD [address] [facility] [address] [place] [address] [facility] Clinical Concern/Question Social History [...] place to sleep or slept in a senior care (including now)? No 05/13/2023 PHQ-9 Answer Date [...] drink first t shanta in the morning (EYE-FUSING FURNACE LOADER) to steady your nerves or to get rid of a hangover? 0 05/12/2023 CAGE Questionnaire Score 0 023 Utilities Answer Date Recorded In the past 12 months has th LEAFER, gas, oil, or water company threatened to [...] Telephone Encounter - Telma Aparicio RN - 06/06/2025 5:24 PM EST Addressed via patient advice request. Please see encounter. * Telephone Encounter - Mariah Lowe - 06/03/2025 2:41 PM EST Clinical Concern/Question Reason for Call: Patient will like to know how his procedure was performed , he will like to know if she used a Wire mesh , please follow-up he says [facility] is requesting this info Best contact number: [phone] (home) Optimal time of day to reach caller: ANYTIME Additional comments/information from caller: None Note: Please do not reply to this message. Follow-up communication and further actions as a result of this message need to be communicated with the patient directly, if the patient is not active onMyChart. If the patient is active on MyChart, they will receive notification of the communication/outcome via MyChart. documented in this encounter Plan of Treatment Upcoming Encounters Date Type Department Care Team (Late st Contact Info) Description 02/20/2026 11:30 AM EDT Appointment [facility] Radiology [address] [place] [address] 02/20/2026 2:10 PM EDT Office Visit [place] [facility] [address] [place] [address] Laura Atkinson PA [address] [address] documented as of this encounter Visit Diagnoses [...] documented as of this encounter Care Teams Strap Folding Machine Operator Relationship Specialty [place] [id number] PCP - General 10/25/24 Laura Atkinson PA [address] [address] Physician Air Pollution Auditor Urology 02/07/25 documented as of this encounter
--- OUTSIDE RECORDS SUMMARY | 2025-06-14 07:24 | XMS_ITS | Clinical Summary ---
Author Organization [facility] Address [address] [place] [address] Care Team Providers Care News Production Assistant Name Role Phone Robert Reilly MD Primary Care Provider [phone] Allergies No known active allergies Medications * [...] drink = 0.6 oz pur e alcohol) [facility] Utilities Answer Date Recorded In the [...] care, and heating? Not very hard 07/09/2024 [facility] - Occupational Stress [...] GED or equivalent No 07/09/2024 Preferred Language Bulgarian 07/09/2024 PHQ-2 Answer Date Recorded Patient Health [...] Description 07/04/2025 9:30 AM EST Office Visit [facility] [address] [facility] [address] [place] [address] Pepper Koch MD [address] [facility] [address] [place] [address] 08/03/2025 1:00 PM EST Office Visit [facility] [address] [facility] [address] [place], [place] [id number] Cristine Portillo, DRILLER AND BROACHER [address] [facility] [address] [address] Health Maintenance Due Date Last [...] - 5.60 % 07/09/2024 12:25 PM EST [facility] Blood Venipuncture / Unknown 07/09/2024 11:02 AM EST 07/09/2024 11:43 AM EST Narrative [facility] - 07/09/2024 12:25 PM EST Hemoglobin A1C Ranges: Increased Risk for Diabetes 5.7% to 6.4% Diabetes >= 6.5% Diabetic Goal < 7.0% Rima Christian DRILLER AND BROACHER LAB BLOOD ORDERABLES Final R esult [facility]
[address] [place] [address], * (ABNORMAL) Lipid Panel (07/09/2024 11:02 AM EST) Total Cholesterol 166 0 - 200 mg/dL 07/09/2024 11:59 AM EST [facility] Triglycerides 201(H) 0 - 150 mg/dL 07/09/2024 11:59 AM EST [facility] HDL Cholesterol 46 40 - 60 mg/dL 07/09/2024 11:59 AM EST [facility] LDL Cholesterol 86 0 - 100 mg/dL 07/09/2024 11:59 AM EST [facility] VLDL Cholesterol 34 5 - 40 mg/dL 07/09/2024 11:59 AM EST [facility] LDL/HDL Ratio 1.73 07/09/2024 11:59 AM EST [facility] Blood Venipuncture / Unknown 07/09/2024 11:02 AM EST 07/09/2024 11:31 AM EST Narrative [facility] - 07/09/2024 11:59 AM EST [...] Very High >189 mg/dL us Rima Christian DRILLER AND BROACHER LAB BLOOD ORDERABLES Final R esult [facility]
[address] [place] [address], from Last 3 Months or Most Recently [...] out to family no response Care Teams News Production Assistant Relationship Specialty Start Date End Date Robert Reilly MD [address] [place] [address] PCP - General Family Medicine 01/31/25
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
--- OUTSIDE RECORDS SUMMARY | 2025-06-14 07:24 | XMS_ITS | CCD ---
Author Organization Unknown Care Team Providers Care Cash Poster Name Role Phone Non Engaged, [facility] Primary Care Provider Unav ailable Unavailable Chronic Care Management Unavaila ble Summary Purpose DataExchange Insurance Providers Payer name Policy type / Coverage type Covered constitution party ID Effective Begin Date Effective End Date [facility] [id number] Unknown Unknown Family History Family History data not found Medication Administered No Medication Administered data Reason For Visit No Reason For Visit data Medical Equipment No Medical Equipment data Advance Directives No Advance Directive data
--- NOTE | 2025-06-14 07:30 | MR_ITS ---
FINAL REPORT TECHNIQUE: Multiplanar and multisequence imaging was obtained before and after the intravenous injection of gadolinium contrast. CLINICAL HISTORY: Hepatic Lesion prior ultrasound COMPARISON: 06/01/2025 FINDINGS: The liver is fatty infiltrated, without focal hepatic lesion. The gallbladder is present. There are small gallstones present. Gallbladder wall is mildly thickened. Common duct is normal in caliber. There is no biliary ductal dilatation. The spleen is normal in size and signal intensity. The adrenal glands and pancreas are without acute abnormality. There is no pancreatic mass or evidence of pancreatitis. There is no hydronephrosis or renal mass. The kidneys are unremarkable. Limited evaluation of the GI tract is without acute abnormality. There is no abdominal lymphadenopathy or ascites. There are postoperative changes from endoluminal repair of an abdominal aortic aneurysm which is incompletely imaged. Postcontrast images reveal no abnormal enhancement. No liver lesion identified. IMPRESSION: Fatty infiltration of the liver. Gallstones with mild gallbladder wall thickening. No liver lesion identified. Reviewed, Interpreted and Dictated by Skyla Langston MD Transcribed by Carol Bond Authenticated and [facility]
[2025-06-14] MEDS: SODIUM CHLORIDE 0.9% 10ML SYR (RAD ONLY) 10 ML IV (08:17)
[2025-06-14] MEDS: GADOTERIDOL INJ 20ML SYRINGE 19 ML IV (08:17)
[2025-06-14] MEDS: 0.9 % SODIUM CHLORIDE 50 ML VIAL 20 ML IV (08:17)
== END 2025-06-14 23:59 | disposition home or self-care (01) ==
LOC: RAD 07:21
PROVIDERS: PCP Family Medicine; Visit Provider Family Medicine
DX: K76.9 Liver disease, unspecified (principal)
CPT/HCPCS: 74183; A9576